=== PATIENT | male | born 1950 | race Caucasian/White ===

== ENCOUNTER 2018-05-18 09:15 | Outpatient (CLI) | payer MEDICARE, SELFPAY ==
[2018-05-18 10:59] LABS: HCT 42.5 % (40.0-50.0); HGB 14.5 g/dL (13.5-17.5); Mean Corp. HGB Concentration 34.1 g/dL (32.0-36.0); Mean Corpuscular Hemoglobin 30.1 pg (27.0-33.0); Mean Corpuscular Volume 88.2 fL (80-95); Mean Platelet Volume 10.3 fL (8.0-11.0); Platelet Count 244 x1000/uL (130-400); RBC 4.82 m/cumm (4.50-6.00); White Blood Cell Count 5.68 k/cumm (4.4-10.8)
[2018-05-18 11:29] LABS: TSH (W/Ref FT4) 3.56 uIU/mL (0.358-3.74)
== END 2018-05-18 09:35 ==
PROVIDERS: PCP Internal Medicine; Visit Provider Internal Medicine
DX: E78.5 Hyperlipidemia, unspecified (principal); R07.9 Chest pain, unspecified; R53.83 Other fatigue
CPT/HCPCS: 36415; 85027; 84443

== ENCOUNTER 2018-11-23 01:15 | Outpatient (CLI) | payer MEDICARE, SELFPAY ==
--- NOTE | 2018-11-23 10:48 | DI.RAD_ITS ---
SYMPTOMS/DIAGNOSIS: PAIN LT SHOULDER, M25.512 LEFT SHOULDER: Multiple views. There are mild hypertrophic changes seen at the acromioclavicular joint. Small spurring is seen at the lateral aspect of the acromion. The glenohumeral joint appears well maintained. The bones are intact and normally mineralized. The soft tissues are unremarkable. IMPRESSION: Degenerative changes about the left shoulder as described above.
[2018-11-23 12:38] LABS: Anion Gap 8.1 mmol/L (3-11); BUN 13 mg/dL (7-18); CO2 29.9 mmol/L (21.0-32.0); CREATININE 0.96 mg/dL (0.70-1.30); Calcium 9.7 mg/dL (8.5-10.1); Chloride 102 mmol/L (98-107); Glucose 106 mg/dL (70-100); Sodium 140 mmol/L (136-145)
[2018-11-24 09:19] LABS: PSA, Screening <0.1 ng/ml (0-6.5)
== END 2018-11-23 01:35 ==
PROVIDERS: PCP Internal Medicine; Visit Provider Internal Medicine
DX: M25.512 Pain in left shoulder (principal); M19.012 Primary osteoarthritis, left shoulder; E87.6 Hypokalemia; I10 Essential (primary) hypertension
CPT/HCPCS: 36415; 80048; 84153; 73030

== ENCOUNTER 2018-12-28 09:49 | Outpatient (CLI) | payer MEDICARE, SELFPAY ==
[2018-12-28 13:23] LABS: Calculated LDL 95; Cholesterol 156 mg/dL (50-200); HDL Cholesterol 32 mg/dL (40-60); Triglyceride 145 mg/dL (30-150)
== END 2018-12-28 10:09 ==
PROVIDERS: PCP Internal Medicine; Visit Provider Internal Medicine
DX: I10 Essential (primary) hypertension (principal)
CPT/HCPCS: 36415; 80061; 83721

== ENCOUNTER → 2019-01-01 13:30 | Outpatient (BNVA) | payer MEDICARE, SELFPAY | PROVIDERS: PCP Internal Medicine; Referring Provider Internal Medicine; Visit Provider Physical Therapy Assistant | DX: R10.33 Periumbilical pain (principal); I10 Essential (primary) hypertension | CPT/HCPCS: 99212; 99213 ==

== ENCOUNTER 2019-01-08 01:51 | Outpatient (CLI) | payer MEDICARE, SELFPAY ==
[2019-01-08] MEDS: Breeza Beverage 473 ML BTL PO ×2 (07:42→07:43)
[2019-01-08] MEDS: Omnipaque 350 MG/ML 50 ML BTL PO (07:43)
[2019-01-08 07:52] LABS: CREATININE 1.13 mg/dL (0.70-1.30)
--- NOTE | 2019-01-08 09:15 | DI.CT_ITS ---
SYMPTOM/DIAGNOSIS: ABDOMINAL PAIN, R/O HERNIA R10.9 CT ABDOMEN AND PELVIS: CT scan of the abdomen and pelvis was performed following the uneventful administration of intravenous and oral contrast material. Comparison is 05/14/16. Dependent atelectatic changes are seen in the lung bases. The liver is normal in size. No suspicious hepatic mass is seen. The portal, superior mesenteric and splenic veins are patent. The patient is status post cholecystectomy. There is no biliary ductal dilatation. The pancreas and peripancreatic soft tissues are unremarkable as are the spleen and adrenal glands. The kidneys show normal enhancement. No evidence of a solid renal mass or obstruction. The urinary bladder is intact. There is atherosclerosis of the abdominal aorta but no aneurysmal dilatation is present. No significant abdominal or pelvic adenopathy, ascites or pneumoperitoneum is present. The bowel shows no evidence of obstruction or inflammation. No findings to suggest acute appendicitis are present. There is a small hiatal hernia. Degenerative changes are present in the spine. No sclerotic foci are identified. Note is made of a small fat containing right inguinal hernia. IMPRESSION: No evidence of an acute or abdominal or pelvic process. 2. Small fat containing right inguinal hernia
[2019-01-08] MEDS: Omnipaque 350 MG/ML 100 ML BTL IJ (09:24)
[2019-01-08] MEDS: Normal Saline Flush 10 ML SYR IVP (09:24)
== END 2019-01-08 02:11 ==
PROVIDERS: PCP Internal Medicine; Visit Provider Physical Therapy Assistant
DX: R10.9 Unspecified abdominal pain (principal); K40.90 Unilateral inguinal hernia, without obstruction or gangrene, not specified as recurrent; Z90.49 Acquired absence of other specified parts of digestive tract; K44.9 Diaphragmatic hernia without obstruction or gangrene
CPT/HCPCS: 74177; 82565; J3490; Q9967

== ENCOUNTER 2019-06-29 08:37 | Outpatient (CLI) | payer MEDICARE, SELFPAY ==
--- NOTE | 2019-06-29 11:11 | DI.RAD_ITS ---
EXAM: XR CHEST 2V PA LATERAL INDICATION: pain R lower lung posterior area. COMPARISON: CHEST 2 VIEWS PA,LAT from 06/21/2013 XR shoulder LT complete 2+V from 11/23/2018 TECHNIQUE: 2D digital imaging was performed. FINDINGS: The heart size and pulmonary vasculature are within normal limits. The lungs are clear. No effusion s or pneumothoraces are identified. Sternal wires are in place. Age-appropriate degenerative change s are seen in the spine. IMPRESSION: No acute pulmonary process.
--- NOTE | 2019-06-29 11:13 | DI.RAD_ITS ---
EXAM: XR ELBOW LT COMPLETE INDICATION: pain, R52. COMPARISON: No previous for comparison. TECHNIQUE: 2D digital imaging was performed. FINDINGS: No acute fracture or dislocation is present. There are mild degenerative changes seen about the elbo w. There is a small enthesophyte at the triceps insertion site. The bones are normally mineralized. The soft tissues are unremarkable. IMPRESSION: No acute abnormality.
[2019-06-30 11:21] LABS: HBs Antibody, Qual Negative (See Note); HBs Antibody, Quant 3.4 mIU/mL (See Note); Hepatitis B Core Antibody Negative (Negative); Hepatitis B surface Ag Negative (Negative); Hepatitis C Ab w Rflx HCV PCR Negative (Negative)
== END 2019-06-29 08:57 ==
PROVIDERS: PCP Internal Medicine; Visit Provider Internal Medicine
DX: M25.522 Pain in left elbow (principal); M19.022 Primary osteoarthritis, left elbow; Z11.59 Encounter for screening for other viral diseases; R09.1 Pleurisy; J98.4 Other disorders of lung
CPT/HCPCS: 36415; 86704; 86706; 86803; 87340; 71046; 73080

== ENCOUNTER 2019-08-24 00:59 | Outpatient (CLI) | payer MEDICARE, SELFPAY ==
--- NOTE | 2019-08-24 10:55 | DI.CT_ITS ---
EXAM: CT HEAD CERVICAL SPINE WO CLINICAL HISTORY: Trauma to head and neck after fall on ice S09.90XA INJURY OF HEAD TECHNIQUE: Noncontrast COMPARISON: No exams were available for comparison FINDINGS: Head CT: No intracranial hemorrhage, mass or infarct is seen. There is no evidence of skull fracture . The ventricles are normal in size. There is no significant atrophy. The sinuses, orbits and mast oid air cells are unremarkable as visualized. There is no significant atrophy or white matter change s. Cervical spine CT: There is no evidence of fracture or subluxation. Degenerative disc changes are se en greatest at C 6-7. There is no prevertebral soft tissue swelling. The airway appears intact. IMPRESSION: No acute abnormality.
== END 2019-08-24 01:19 ==
PROVIDERS: PCP Internal Medicine; Visit Provider Family Medicine
DX: R51 Headache (principal); M54.2 Cervicalgia; S09.90XA Unspecified injury of head, initial encounter; W00.9XXA Unspecified fall due to ice and snow, initial encounter; M50.323 Other cervical disc degeneration at C6-C7 level; S19.9XXA Unspecified injury of neck, initial encounter
CPT/HCPCS: 70450; 72125

== ENCOUNTER 2019-12-30 19:14 | Outpatient (REF) | payer MEDICARE, SELFPAY ==
[2019-12-30 19:59] LABS: HCT 43.1 % (40.0-50.0); HGB 14.5 g/dL (13.5-17.5); Mean Corp. HGB Concentration 33.6 g/dL (32.0-36.0); Mean Platelet Volume 10.6 fL (8.0-11.0); Platelet Count 288 x1000/uL (130-400); RBC 4.84 m/cumm (4.50-6.00); RBC Distribution Width 13.2 % (11.8-14.1); White Blood Cell Count 5.17 k/cumm (4.4-10.8)
[2019-12-30 20:06] LABS: ALT 27 U/L (16-63); AST 15 U/L (15-37); Albumin 3.7 g/dL (3.4-5.0); Alkaline Phosphatase 66 U/L (46-116); BUN 18 mg/dL (7-18); Bilirubin, Total 0.5 mg/dL (0.2-1.0); CREATININE 1.26 mg/dL (0.70-1.30); Calcium 9.5 mg/dL (8.5-10.1); Chloride 103 mmol/L (98-107); Estimated GFR 56.42 (mL/min/1.73m2); FREE T4 0.89 ng/dL (0.76-1.46); Glucose 100 mg/dL (74-106); Potassium 4.3 mmol/L (3.5-5.1); Sodium 137 mmol/L (136-145); TSH 3.51 uIU/mL (0.36-3.74); Total Protein 7.1 g/dL (6.4-8.2)
[2019-12-30 20:43] LABS: Calculated LDL 80 mg/dL (<100); Cholesterol 137 mg/dL (<200); HDL Cholesterol 33 mg/dL (40-60); Triglyceride 120 mg/dL (<150)
== END 2019-12-30 19:34 ==
LOC: NCHCN 19:14
PROVIDERS: PCP Nurse Practitioner Family; Visit Provider Nurse Practitioner Family
DX: R07.9 Chest pain, unspecified (principal); I48.91 Unspecified atrial fibrillation
CPT/HCPCS: 80053; 80061; 85027; 84439; 84443

== ENCOUNTER 2019-12-31 02:49 | Outpatient (CLI) | payer MEDICARE, SELFPAY | END 2019-12-31 03:09 | PROVIDERS: PCP Nurse Practitioner Family; Visit Provider Nurse Practitioner Family | DX: I48.91 Unspecified atrial fibrillation (principal); I47.2 Ventricular tachycardia; I49.3 Ventricular premature depolarization | CPT/HCPCS: 0296T ==

== ENCOUNTER 2020-01-10 11:13 | Outpatient (CLI) | payer MEDICARE, SELFPAY ==
--- NOTE | 2020-01-10 12:30 | DI.US_ITS ---
APPROVED REPORT EXAM: Comprehensive 2D, Doppler, and color-flow Echocardiogram Patient Location: Out-Patient Systems Mechanic: Abril Novoa RDCS (AE) Indications: New onset of A Fib, CAD, CABG Other Information Study Quality: Adequate Conclusion Left Ventricle : The left ventricle is normal size. The left ventricular systolic function is normal. The left ventricular ejection fraction is within the normal range. There is normal left ventricular wall thickness. There is normal LV segmental wall motion. Diastolic function is indeterminate. LVEF i s 47%. Right Ventricle : The right ventricle is normal size. The right ventricular systolic function is low normal. The RVSP is 22.2 mmHg. Atria : Left atrium is mildly dilated. Right atrium is mildly dilated. Valves: There are no hemodynamically significant valvular lesions. Great Vessels : IVC is normal in size and collapses >50% with inspiration. The ascending aorta is mod erately dilated (4.1cm). See remainder of study for further details. There is no prior echocardiogram available for comparison. Wall motion Left Ventricle The left ventricle is normal size. The left ventricular systolic function is normal. The left ventric ular ejection fraction is within the normal range. There is normal left ventricular wall thickness. T here is normal LV segmental wall motion. Diastolic function is indeterminate. There is no ventricular septal defect visualized. LVEF is 47%. Right Ventricle The right ventricle is normal size. The right ventricular systolic function is mildly decreased. The RVSP is 22.2 mmHg. Atria Left atrium is mildly dilated. Right atrium is mildly dilated. The interatrial septum is intact with no evidence for an atrial septal defect. Aortic Valve Aortic valve is likely trileaflet. There is no aortic valvular stenosis. Trace aortic regurgitation. Mitral Valve There is mitral annular calcification. No evidence of mitral valve stenosis. Trace mitral regurgitati on. Tricuspid Valve The tricuspid valve is normal in structure. There is no tricuspid valve stenosis. Trace tricuspid reg urgitation. Pulmonic Valve The pulmonary valve is normal in structure. There is no pulmonic valvular stenosis. Trace pulmonic re gurgitation. Great Vessels The aortic root is normal in size. The ascending aorta is moderately dilated (4.1cm). IVC is normal i n size and collapses >50% with inspiration. Pericardium There is no pericardial effusion. 2D Dimensions IVSD d PLAX 1.09 cm M: 0.6-1.2 LV Vol A2C d MOD 92.9 mL LVPW d PLAX 1.08 cm M: 0.6 - 1.2 LV Vol A4C d MOD 117.5 mL LVID d PLAX 4.76 cm M: 4.2 - 5.8 LA vol/ BSA A2C s A-L 37.9 mL/m2 LVDs 3.35 cm M: 2.5 - 4.0 LA vol/ BSA A4C s A-L 25.0 mL/m2 Ao Root d 3.00 cm M: 3.1 - 3.7 LA Vol/ BSA Biplane s A-L 32.7 mL/m2 RA Area A4C 16.19 cm2 LA Area A4C s MOD 17.15 cm2 RA Vol/ BSA A4C s A-L 24.4 mL/m2 LA Area A2C s MOD 22.42 cm2 Ao Asc Diam d 4.15 cm M: 2.6 - 3.4 LV EF A4C MOD 47.8 % LV EF Teichholz 55.2 % LV EF A2C MOD 44.2 % LVEF (Herrmann's) 47.62 % M: 52 - 72 LV EF Biplane MOD 47.6 % LV Volume 82.07 mL M: 62 - 150 SV 52.45 mL LV Volume Index 40.23 mL/m2 M: 34 - 74 SV Index 25.72 mL/m2 LV Vol Biplane MOD 110.1 mL FS 28.65 % M-Mode TAPSE 1.60 cm (M/F) >1.7 LV Diastology MV E' lateral 0.116 (>0.1 m/s) E/A Ratio 2.6 LV E/e LAT 7.70 (<14) MV E Vmax 0.90 (0.4-1.3 m/s) MV E/E' lateral 7.75 MV A Vmax 0.35 (0.4-1.3 m/s) MV E/A Ratio 2.51 Aortic Valve LVOT Area 2.79 cm2 AoV Area Vmax 2.52 cm2 LVOT Vmax 0.97 m/s AoV Area/ BSA (Vmax) 1.23 cm2/m2 LVOT Mean Han. 0.72 m/s GUNNER Mean Han. 2.30 cm2 LVOT Peak Grad 3.7 mmHg GUNNER Mean Han. Index 1.13 cm2/m2 LVOT Mean Grad 2.2 mmHg AR DT 1871 msec LVOT VTI 0.169 m AR PHT 542 msec LVOT Diam s 1.85 cm AoV Vmax 1.07 m/s Velocity Ratio 0.90 AoV Mean Han. 0.87 m/s AoV Peak Grad 4.6 mmHg LVOT SV 47.09 mL AoV Mean Grad 3.2 mmHg AoV VTI 0.179 m AoV Area VTI 2.63 cm2 AoV Area/ BSA (VTI) 1.29 cm/m2 Mitral Valve MV DT 143 (160-240 msec) MV PHT 42 msec MV Area PHT 5.30 cm2 Pulmonary Valve PV Vmax 1.10 (0.5-1.5 m/s) RVOT Peak Gr. 1.72 mmHg PV Peak Grad 4.8 mmHg RVOT Mean Gr. 1.10 mmHg PV Mean Grad 3.3 mmHg RVOT VTI 0.114 m PV VTI 0.163 m RVOT Vmax 0.66 m/s Tricuspid Valve TR Peak Grad 19.1 mmHg TR Vmax 2.19 m/s RA Pressure 3.00 mmHg RVSP (TR) 22.2 mmHg
== END 2020-01-10 11:33 ==
PROVIDERS: PCP Nurse Practitioner Family; Visit Provider Nurse Practitioner Family
DX: I48.91 Unspecified atrial fibrillation (principal); I25.10 Atherosclerotic heart disease of native coronary artery without angina pectoris; I10 Essential (primary) hypertension; Z95.1 Presence of aortocoronary bypass graft
CPT/HCPCS: 93306

== ENCOUNTER 2020-01-11 01:01 | Outpatient (CLI) | payer MEDICARE, SELFPAY ==
[2020-01-11 10:48] LABS: INR 1.9 (0.9-1.1); Prothrombin Time 18.9 sec (9.3-11.0)
== END 2020-01-11 01:21 ==
PROVIDERS: PCP Nurse Practitioner Family; Visit Provider Nurse Practitioner Family
DX: I48.91 Unspecified atrial fibrillation (principal); Z79.01 Long term (current) use of anticoagulants
CPT/HCPCS: 36415; 85610

== ENCOUNTER 2020-01-14 04:17 | Outpatient (CLI) | payer MEDICARE, SELFPAY ==
[2020-01-14 15:31] LABS: INR 1.9 (0.9-1.1); Prothrombin Time 18.9 sec (9.3-11.0)
== END 2020-01-14 04:37 ==
PROVIDERS: PCP Nurse Practitioner Family; Visit Provider Nurse Practitioner Family
DX: I48.91 Unspecified atrial fibrillation (principal); Z79.01 Long term (current) use of anticoagulants
CPT/HCPCS: 36415; 85610

== ENCOUNTER 2020-01-19 02:33 | Outpatient (CLI) | payer MEDICARE, SELFPAY ==
[2020-01-19 15:15] LABS: INR 1.4 (0.9-1.1); Prothrombin Time 13.9 sec (9.3-11.0)
== END 2020-01-19 02:53 ==
PROVIDERS: PCP Nurse Practitioner Family; Visit Provider Nurse Practitioner Family
DX: I48.91 Unspecified atrial fibrillation (principal); Z79.01 Long term (current) use of anticoagulants
CPT/HCPCS: 36415; 85610

== ENCOUNTER 2020-01-24 08:33 | Outpatient (CLI) | payer MEDICARE, SELFPAY | END 2020-01-24 08:53 | PROVIDERS: PCP Nurse Practitioner Family; Visit Provider Internal Medicine Cardiovascular Disease | DX: I48.91 Unspecified atrial fibrillation (principal); I47.2 Ventricular tachycardia; I49.3 Ventricular premature depolarization | CPT/HCPCS: 0298T ==

== ENCOUNTER 2020-01-26 04:14 | Outpatient (CLI) | payer MEDICARE, SELFPAY ==
[2020-01-26 16:05] LABS: INR 1.4 (0.9-1.1); Prothrombin Time 13.6 sec (9.3-11.0)
== END 2020-01-26 04:34 ==
PROVIDERS: PCP Nurse Practitioner Family; Visit Provider Nurse Practitioner Family
DX: I48.91 Unspecified atrial fibrillation (principal); Z79.01 Long term (current) use of anticoagulants
CPT/HCPCS: 36415; 85610

== ENCOUNTER 2020-02-02 03:04 | Outpatient (CLI) | payer MEDICARE, SELFPAY ==
[2020-02-02 12:57] LABS: INR 1.8 (0.9-1.1); Prothrombin Time 18.3 sec (9.3-11.0)
== END 2020-02-02 03:24 ==
PROVIDERS: PCP Nurse Practitioner Family; Visit Provider Nurse Practitioner Family
DX: I48.91 Unspecified atrial fibrillation (principal); Z79.01 Long term (current) use of anticoagulants
CPT/HCPCS: 36415; 85610

== ENCOUNTER 2020-02-09 01:16 | Outpatient (CLI) | payer MEDICARE, SELFPAY ==
[2020-02-09 15:37] LABS: INR 1.9 (0.9-1.1); Prothrombin Time 18.8 sec (9.3-11.0)
== END 2020-02-09 01:36 ==
PROVIDERS: PCP Nurse Practitioner Family; Visit Provider Nurse Practitioner Family
DX: I48.91 Unspecified atrial fibrillation (principal); Z79.01 Long term (current) use of anticoagulants
CPT/HCPCS: 36415; 85610

== ENCOUNTER 2020-02-16 04:04 | Outpatient (CLI) | payer MEDICARE, SELFPAY ==
[2020-02-16 15:49] LABS: INR 2.3 (0.9-1.1); Prothrombin Time 22.9 sec (9.3-11.0)
[2020-02-16 16:23] LABS: Anion Gap 7.8 mmol/L (3-11); BUN 24 mg/dL (7-18); CO2 27.2 mmol/L (21.0-32.0); CREATININE 1.41 mg/dL (0.70-1.30); Calcium 9.4 mg/dL (8.5-10.1); Chloride 106 mmol/L (98-107); Estimated GFR 49.55 (mL/min/1.73m2); Glucose 90 mg/dL (74-106); Magnesium 1.9 mg/dL (1.8-2.4); Potassium 4.3 mmol/L (3.5-5.1); Sodium 141 mmol/L (136-145)
[2020-02-17 08:50] LABS: PSA, Screening <0.1 ng/mL (0.0-6.5)
== END 2020-02-16 04:24 ==
PROVIDERS: PCP Nurse Practitioner Family; Visit Provider Nurse Practitioner Family
DX: R25.2 Cramp and spasm (principal); Z85.46 Personal history of malignant neoplasm of prostate; I48.91 Unspecified atrial fibrillation
CPT/HCPCS: 36415; 80048; 84153; 83735; 85610

== ENCOUNTER 2020-02-21 02:28 | Outpatient (CLI) | payer MEDICARE, SELFPAY ==
[2020-02-21 14:52] LABS: INR 2.6 (0.9-1.1); Prothrombin Time 25.5 sec (9.3-11.0)
== END 2020-02-21 02:48 ==
PROVIDERS: PCP Nurse Practitioner Family; Visit Provider Nurse Practitioner Family
DX: I48.91 Unspecified atrial fibrillation (principal)
CPT/HCPCS: 36415; 85610

== ENCOUNTER 2020-02-24 03:05 | Outpatient (CLI) | payer MEDICARE, SELFPAY ==
[2020-02-24 17:17] LABS: INR 1.5 (0.9-1.1); Prothrombin Time 14.7 sec (9.3-11.0)
== END 2020-02-24 03:25 ==
PROVIDERS: PCP Nurse Practitioner Family; Visit Provider Nurse Practitioner Family
DX: I48.91 Unspecified atrial fibrillation (principal); Z79.01 Long term (current) use of anticoagulants
CPT/HCPCS: 36415; 85610

== ENCOUNTER 2020-06-02 14:35 | Emergency (ER) | payer MEDICARE, SELFPAY ==
--- NOTE | 2020-06-02 14:44 | W.ED.GENAD ---
Discharge Plan Disposition Patient Disposition: HOME Condition: Stable Discharge Details Clinical Impression: Finger laceration Primary Care Provider: Jacquelyn Reyes ED Provider: Shakira Conde Home Meds and New Rx's Prescriptions: New cephalexin [Keflex] 500 mg capsule 500 mg PO TID 7 Days Qty: 21 RF: 0 Continued atorvastatin 80 mg tablet 80 mg PO DAILY RF: 0 amlodipine 10 mg tablet 10 mg PO DAILY Qty: 90 RF: 3 cholecalciferol (vitamin D3) [Vitamin D3] 125 mcg (5,000 unit) tablet 125 mcg PO DAILY RF: 0 nitroglycerin 0.4 mg tablet, sublingual 0.4 mg Sublingual .COMPLEX MDD 3 tab Qty: 50 RF: 2 isosorbide mononitrate 30 mg tablet extended release 24 hr 30 mg PO DAILY RF: 0 ezetimibe [Zetia] 10 mg tablet 10 mg PO DAILY RF: 0 omeprazole 40 mg capsule,delayed release(DR/EC) 40 mg PO DAILY Qty: 90 RF: 3 losartan 100 mg tablet 100 mg PO DAILY RF: 0 metoprolol succinate 25 mg tablet extended release 24 hr 25 mg PO DAILY Qty: 90 RF: 4 apixaban 5 mg tablet 5 mg PO BID Qty: 180 RF: 4 cyclobenzaprine 5 mg tablet 5 mg PO TID PRN (Reason: pain) Qty: 90 RF: 2 aspirin 81 MG tablet,chewable 81 mg PO DAILY RF: 0 Discharge Instructions Instructions: Finger Laceration (ED) Additional Instructions: Keep wound clean and dry. Cover wound with bandage if risk of contamination. Otherwise you can keep the wound open to air if resting at home to allow edges to dry and heal. Take the antibiotics until finished. Return to the emergency department in 7 days for suture removal. Return immediately to the emergency department if you develop any worsening or new concerning symptoms. Discharge Data Discharge Date/Time-TO BE ENTERED AT DEPARTURE: 06/02/20 15:46 Discharge Physician: Shakira Conde Medical Decision Making 69-year-old male presents with right fifth finger laceration sustained on a sharp edge of sheet metal just prior to arrival. Denies any foreign bodies or bony pain. Last tetanus 2012. He states the sheet-metal may have been slightly contaminated. He has a 1 cm straight laceration noted on the middle phalange E of volar aspect of right fifth finger. No bony deformity or foreign bodies noted. He is neurovascular intact. Finger was irrigated well and finger tourniquet placed and wound explored without any evidence of bony injury or contamination. 5 nylon 5-0 sutures placed. Due to slight contamination of sheet-metal, will cover with antibiotics. Advised return to the ED in 10 days for suture removal. Usual and customary return precautions given prior to discharge. Medical Records Medical records reviewed: Yes I reviewed the patient's medical records. HPI General Mode of arrival: ambulatory. Date/Time Provider Initiated Documentation: 06/02/20 14:44. Limitations to Documentation: no limitations. Information obtained by: patient. HPI Narrative: Patient is a 69-year-old male with a right fifth finger laceration sustained from sheet metal while working at home. Patient states he was picking up a piece of sheet metal when it sliced the palmar aspect of his right fifth finger. States he is unsure of his last tetanus. He denies any known foreign bodies or bony injury. Related Data Home Medications Medication Instructions Recorded Confirmed aspirin 81 mg PO DAILY 06/21/13 06/02/20 nitroglycerin 0.4 mg sublingual 0.4 mg SUBLINGUAL .COMPLEX #50 09/25/18 06/02/20 tablet tab-cap MDD 3 tab isosorbide mononitrate 30 mg 30 mg PO DAILY 10/21/18 06/02/20 tablet,extended release 24 hr atorvastatin 80 mg tablet 80 mg PO DAILY 11/16/18 06/02/20 amlodipine 10 mg tablet 10 mg PO DAILY #90 tab 06/28/19 06/02/20 cholecalciferol (vitamin D3) 125 125 mcg PO DAILY 12/30/19 06/02/20 mcg (5,000 unit) tablet ezetimibe 10 mg tablet 10 mg PO DAILY 12/31/19 06/02/20 losartan 100 mg tablet 100 mg PO DAILY 12/31/19 06/02/20 omeprazole 40 mg capsule,delayed 40 mg PO DAILY #90 cap 12/31/19 06/02/20 release metoprolol succinate 25 mg 25 mg PO DAILY #90 tab 01/27/20 06/02/20 tablet,extended release 24 hr apixaban 5 mg tablet 5 mg PO BID #180 tab 02/25/20 06/02/20 cyclobenzaprine 5 mg tablet 5 mg PO TID PRN #90 tab 03/05/20 06/02/20 cephalexin [Keflex] 500 mg PO TID 7 Days #21 cap 06/02/20 Previous Rx's Medication Instructions Recorded nitroglycerin 0.4 mg sublingual 0.4 mg SUBLINGUAL .COMPLEX #50 09/25/18 tablet tab-cap MDD 3 tab amlodipine 10 mg tablet 10 mg PO DAILY #90 tab 06/28/19 omeprazole 40 mg capsule,delayed 40 mg PO DAILY #90 cap 12/31/19 release metoprolol succinate 25 mg 25 mg PO DAILY #90 tab 01/27/20 tablet,extended release 24 hr apixaban 5 mg tablet 5 mg PO BID #180 tab 02/25/20 cyclobenzaprine 5 mg tablet 5 mg PO TID PRN #90 tab 03/05/20 cephalexin [Keflex] 500 mg PO TID 7 Days #21 cap 06/02/20 Allergies Allergy/AdvReac Type Severity Reaction Status Date / Time No Known Allergies Allergy Verified 06/02/20 15:29 Review of Systems All systems reviewed & are unremarkable except as noted in HPI and below Constitutional Constitutional: Reports as per HPI, Denies chills and Denies fever(s) Eyes Eyes: Denies blurry vision ENT Ears, Nose, Mouth, and Throat: Denies dizziness, Denies sore throat and Denies throat swelling Cardiovascular Cardiovascular: Denies chest pain and Denies dyspnea Respiratory Respiratory: Denies cough and Denies dyspnea Gastrointestinal Gastrointestinal: Denies abdominal pain, Denies diarrhea and Denies vomiting Genitourinary Genitourinary: Denies hematuria and Denies dysuria Musculoskeletal Musculoskeletal: Denies back pain and Denies numbness Integumentary/Breasts Skin/Breast: Denies lesions and Denies rash Neurologic Neurologic: Denies dizziness, Denies localized weakness and Denies numbness Allergic/Immunologic Allergic/Immunologic: Denies throat swelling [facility] Medical History (Updated 06/02/20 @ 15:30 by Shakira Conde DO) Adenocarcinoma of prostate (~2015) [place] score 6, s/p radical prostatectomy 2017 Atrial fibrillation Chronic anticoagulation Coronary artery disease Essential hypertension Hyperlipidemia Lumbar back pain with radiculopathy affecting lower extremity Surgical History H/O umbilical hernia repair History of esophagogastroduodenoscopy (EGD) (04/04/14) 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 Maternal Grandmother No problems noted. Paternal Grandfather No problems noted. Paternal Grandmother No problems noted. Social History Smoking/Tobacco Use Status: Never Smoking risk assessment performed?: Yes Alcohol Intake: current Alcohol Intake frequency: a few times a week Alcohol type: beer Drug use: Never Substance use type: does not use Caregiver/Support person: No Household members: spouse and children Housing: house Communication Needs: None Do you need help understanding health information?: Never Pets and animals: Yes Pets and animals: dog(s) Sexually active: No Do you think of yourself as: straight/heterosexual Current gender identity: male What is your relationship status?: How often do you talk on the phone with friends or family?: decline to answer How often do you get together with friends or relatives?: decline to answer How often do you attend anabaptism or evangelical services?: decline to answer Do you belong to any clubs or organized social groups?: decline to answer Panel score (0-1 are the most socially isolated patients): 1 What type of physical activity do you participate in: walking Duration: 45-60 minutes/day Frequency: daily Sydney/Yarsani: None Special sydney needs: No Seatbelt use: always Drive intox 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 inventory associate and driver: No Do you feel safe at home: Yes Do you feel safe in your relationship?: Yes Exam Const General: cooperative, healthy appearing and no acute distress HENMT Head: normal to inspection Mouth: oral mucosae normal Eyes General: appearance normal, both eyes and all related structures Neck Neck: normal visual inspection Resp Effort & Inspection: normal respiratory effort and able to speak in complete sentences Cardio Rate: regular rate Skin General skin exam: no rashes or lesions noted Neuro General: patient alert, patient awake, patient oriented x3, moves all extremities and no focal motor deficits Motor: muscle tone normal throughout Sensory Exam: no sensory deficits noted Extrem Hand/finger images: 1. 1 cm straight laceration noted on volar aspect of middle phalanges of left fifth finger. There is active oozing but no pulsatile bleeding. No obvious foreign body or bony injury noted. Psych Appearance: grossly normal Affect: normal affect Procedures Laceration Laceration 1: Site: hand Side (If applicable): right Size (cm): 1 Description: linear Depth: simple, single layer Local Anesthetic: Lidocaine 1% Amount of anesthesia used (mL): 5 Pre-repair: wound explored, irrigated extensively and deep structures intact Skin layer closed with: nylon Size (cm): 5-0 Number of sutures: 5 Technique: simple, interrupted
[2020-06-02 14:46] VITALS: PULSE 87; RESP 18; O2SAT 98
[2020-06-02 15:32] VITALS: BP 116/86; PULSE 78; RESP 18; O2SAT 96
[2020-06-02] MEDS: Cephalexin 500 MG CAP PO (15:36)
== END 2020-06-02 15:46 | disposition home or self-care (01) ==
PROVIDERS: Emergency Provider Physician Assistant; PCP Nurse Practitioner Family
DX: S61.216A Laceration without foreign body of right little finger without damage to nail, initial encounter (principal); W26.8XXA Contact with other sharp object(s), not elsewhere classified, initial encounter; Z79.01 Long term (current) use of anticoagulants
CPT/HCPCS: 12001

== ENCOUNTER 2020-06-09 10:48 | Emergency (ER) | payer MEDICARE, SELFPAY ==
[2020-06-09 10:56] VITALS: BP 119/68; PULSE 75; RESP 18; TEMP 36.5; O2SAT 96
--- NOTE | 2020-06-09 10:59 | ED.GENADUL_ITS ---
Discharge Plan Disposition Patient Disposition: HOME Condition: Stable Discharge Details Clinical Impression: Encounter for removal of sutures Primary Care Provider: Jacquelyn Reyes ED Provider: Kerry Callaway Home Meds and New Rx's Prescriptions: Continued atorvastatin 80 mg tablet 80 mg PO DAILY RF: 0 amlodipine 10 mg tablet 10 mg PO DAILY Qty: 90 RF: 3 cholecalciferol (vitamin D3) [Vitamin D3] 125 mcg (5,000 unit) tablet 125 mcg PO DAILY RF: 0 nitroglycerin 0.4 mg tablet, sublingual 0.4 mg Sublingual .COMPLEX MDD 3 tab Qty: 50 RF: 2 isosorbide mononitrate 30 mg tablet extended release 24 hr 30 mg PO DAILY RF: 0 ezetimibe [Zetia] 10 mg tablet 10 mg PO DAILY RF: 0 omeprazole 40 mg capsule,delayed release(DR/EC) 40 mg PO DAILY Qty: 90 RF: 3 losartan 100 mg tablet 100 mg PO DAILY RF: 0 metoprolol succinate 25 mg tablet extended release 24 hr 25 mg PO DAILY Qty: 90 RF: 4 apixaban 5 mg tablet 5 mg PO BID Qty: 180 RF: 4 cyclobenzaprine 5 mg tablet 5 mg PO TID PRN (Reason: pain) Qty: 90 RF: 2 aspirin 81 MG tablet,chewable 81 mg PO DAILY RF: 0 Discharge Instructions Instructions: Stitches Removal (ED) Additional Instructions: Follow up with primary care provider in 3-5 days. Return to ED sooner if any worsening or concerns. Increase oral fluids. Referrals: Jacquelyn Reyes NP [Primary Care Provider] - Discharge Data Discharge Date/Time-TO BE ENTERED AT DEPARTURE: 06/09/20 11:08 Medical Decision Making 5 simple interrupted sutures removed by staff nurse icu resource team patient discharged with home care instructions, verbalized understanding. HPI General Mode of arrival: ambulatory . Date/Time Provider Initiated Documentation: 06/09/20 10:51 . Limitations to Documentation: no limitations . Information obtained by: patient . HPI Narrative: Patient here request to have sutures removed, 5 sutures were placed to his right pinky finger 7 days ago. He denies any problems at home no swelling no redness no drainage. He has been taking cephalexin as prescribed to treat empirically for infection. Wound is well approximated, no surrounding erythema or swelling no signs of infection or dehiscence. Will DC sutures. Related Data Home Medications Medication Instructions Recorded Confirmed aspirin 81 mg PO DAILY 06/21/13 06/09/20 nitroglycerin 0.4 mg sublingual 0.4 mg SUBLINGUAL .COMPLEX #50 09/25/18 06/09/20 tablet tab-cap MDD 3 tab isosorbide mononitrate 30 mg 30 mg PO DAILY 10/21/18 06/09/20 tablet,extended release 24 hr atorvastatin 80 mg tablet 80 mg PO DAILY 11/16/18 06/09/20 amlodipine 10 mg tablet 10 mg PO DAILY #90 tab 06/28/19 06/09/20 cholecalciferol (vitamin D3) 125 125 mcg PO DAILY 12/30/19 06/09/20 mcg (5,000 unit) tablet ezetimibe 10 mg tablet 10 mg PO DAILY 12/31/19 06/09/20 losartan 100 mg tablet 100 mg PO DAILY 12/31/19 06/09/20 omeprazole 40 mg capsule,delayed 40 mg PO DAILY #90 cap 12/31/19 06/09/20 release metoprolol succinate 25 mg 25 mg PO DAILY #90 tab 01/27/20 06/09/20 tablet,extended release 24 hr apixaban 5 mg tablet 5 mg PO BID #180 tab 02/25/20 06/09/20 cyclobenzaprine 5 mg tablet 5 mg PO TID PRN #90 tab 03/05/20 06/09/20 Previous Rx's Medication Instructions Recorded nitroglycerin 0.4 mg sublingual 0.4 mg SUBLINGUAL .COMPLEX #50 09/25/18 tablet tab-cap MDD 3 tab amlodipine 10 mg tablet 10 mg PO DAILY #90 tab 06/28/19 omeprazole 40 mg capsule,delayed 40 mg PO DAILY #90 cap 12/31/19 release metoprolol succinate 25 mg 25 mg PO DAILY #90 tab 01/27/20 tablet,extended release 24 hr apixaban 5 mg tablet 5 mg PO BID #180 tab 02/25/20 cyclobenzaprine 5 mg tablet 5 mg PO TID PRN #90 tab 03/05/20 Allergies Allergy/AdvReac Type Severity Reaction Status Date / Time No Known Allergies Allergy Verified 06/09/20 11:02 General [place]: 3 Review of Systems All systems reviewed & are unremarkable except as noted in HPI and below Integumentary/Breasts Skin/Breast: Reports as per HPI and Reports wounds PFS Medical History (Updated 06/09/20 @ 11:03 by Kerry Callaway) Adenocarcinoma of prostate (~2015) [place] score 6, s/p radical prostatectomy 2017 Atrial fibrillation Chronic anticoagulation Coronary artery disease Essential hypertension Hyperlipidemia Lumbar back pain with radiculopathy affecting lower extremity Surgical History H/O umbilical hernia repair History of esophagogastroduodenoscopy (EGD) (04/04/14) 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 Maternal Grandmother No problems noted. Paternal Grandfather No problems noted. Paternal Grandmother No problems noted. Social History Smoking/Tobacco Use Status: Never Smoking risk assessment performed?: Yes Alcohol Intake: current Alcohol Intake frequency: a few times a week Alcohol type: beer Drug use: Never Substance use type: does not use Caregiver/Support person: No Household members: spouse and children Housing: house Communication Needs: None Do you need help understanding health information?: Never Pets and animals: Yes Pets and animals: dog(s) Sexually active: No Do you think of yourself as: straight/heterosexual Current gender identity: male What is your relationship status?: How often do you talk on the phone with friends or family?: decline to answer How often do you get together with friends or relatives?: decline to answer How often do you attend congregation or tenriism services?: decline to answer Do you belong to any clubs or organized social groups?: decline to answer Panel score (0-1 are the most socially isolated patients): 1 What type of physical activity do you participate in: walking Duration: 45-60 minutes/day Frequency: daily Sydney/Zoroastrian: None Special sydney needs: No Seatbelt use: always Drive intox 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 local 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
== END 2020-06-09 11:08 | disposition home or self-care (01) ==
PROVIDERS: Emergency Provider Registered Nurse Emergency; PCP Nurse Practitioner Family
DX: S61.216D Laceration without foreign body of right little finger without damage to nail, subsequent encounter (principal); W26.8XXD Contact with other sharp object(s), not elsewhere classified, subsequent encounter; Z48.02 Encounter for removal of sutures

== ENCOUNTER → 2020-07-25 01:03 | Outpatient (CLI) | payer MEDICARE, SELFPAY ==
--- NOTE | 2020-07-25 07:15 | DI.US_ITS ---
EXAM: US HERNIA CLINICAL HISTORY: Abd pain just above abdomen, hernia?,R10.33,PERIUMBILICAL PAIN. TECHNIQUE: Ultrasound was performed using standard protocol. COMPARISON: CT CT ABDOMEN PELVIS W from 01/08/[address] ABDOMEN PELVIS W from 01/08/2019 FINDINGS: Sonographic assessment utilizing grayscale and color Doppler imaging was performed and targeted to th e area of clinical concern. There is no evidence of a hernia. There is a 13 millimeter homogeneous hypoechoic lesion questioned deep to the abdominal wall, within the fat. IMPRESSION: No evidence a supraumbilical hernia. Question of a fatty lesion deep to the abdominal wall in the ar ea of the patient's pain. A CT could be considered for further evaluation. DATA REPOSITORY:
== END ==
PROVIDERS: PCP Nurse Practitioner Family; Visit Provider Nurse Practitioner Family
DX: R10.33 Periumbilical pain (principal)
CPT/HCPCS: 76857

== ENCOUNTER → 2020-08-14 00:52 | Outpatient (CLI) | payer MEDICARE, SELFPAY ==
--- NOTE | 2020-08-14 07:15 | DI.RAD_ITS ---
EXAM: XR HIP RT COMPLETE AP PELVIS INDICATION: right hip pain since fall,M25.551,W19.XXXA. COMPARISON: No exams were available for comparison TECHNIQUE: 2D digital imaging was performed. FINDINGS: In the right superior acetabular there is mild sclerosis and subchondral cyst formation. The right h ip is otherwise well maintained. Similar changes are seen in the left hip. The sacroiliac joints an d symphysis pubis are well maintained. The bones are intact and normally mineralized. The soft tiss ues are unremarkable. IMPRESSION: Mild degenerative changes of the right hip. DATA REPOSITORY: RADIATION DOSE DELIVERED:
== END ==
PROVIDERS: PCP Nurse Practitioner Family; Visit Provider Nurse Practitioner Family
DX: M16.11 Unilateral primary osteoarthritis, right hip (principal)
CPT/HCPCS: 73502

== ENCOUNTER → 2021-01-09 00:44 | Outpatient (CLI) | payer MEDICARE, SELFPAY ==
--- NOTE | 2021-01-09 14:07 | DI.US_ITS ---
APPROVED REPORT EXAM: Comprehensive 2D, Doppler, and color-flow Echocardiogram Patient Location: Out-Patient Burner Shaft: Abril Novoa RDCS (AE) Indications: A Fib, Reduced LVEF, HTN Other Information Study Quality: Adequate Conclusion Normal left ventricular wall thickness and chamber size. Estimated ejection fraction is 50 to 55%. There is mild global hypokinesis Normal right ventricular size and systolic function Both atria are mildly dilated The aortic valve is trileaflet and mildly sclerotic with mild regurgitation Mild mitral annular calcification. Mild mitral regurgitation Normal tricuspid valve with trace to mild regurgitation Normal pulmonic valve with trace physiologic regurgitation Dilated ascending aorta measuring 4.11 cm Wall motion Left Ventricle The left ventricle is normal size. Left ventricular systolic function is mildly decreased. There is n ormal left ventricular wall thickness. There is mild global hypokinesis of the left ventricle. There is no ventricular septal defect visualized. LVEF is 50-55%. Right Ventricle Right ventricle is grossly normal in size. Right ventricular systolic function is grossly normal. The RVSP is 23.2mmHg. Atria Left atrium is mildly dilated. Right atrium is mildly dilated. Aortic Valve Valve is mildly thickened Aortic valve is trileaflet. There is no aortic valvular stenosis. Mild aort ic regurgitation. Mitral Valve Mild mitral annular calcification. No evidence of mitral valve stenosis. Mild mitral regurgitation. Tricuspid Valve The tricuspid valve is normal in structure. There is no tricuspid valve stenosis. Trace to mild tricu spid regurgitation. Pulmonic Valve The pulmonary valve is normal in structure. There is no pulmonic valvular stenosis. Trace pulmonic re gurgitation. Great Vessels The aortic root is normal in size. The ascending aorta is moderately dilated.4.11 cm IVC is normal in size and collapses >50% with inspiration. Pericardium There is no pericardial effusion. 2D Dimensions IVSD d PLAX 1.09 cm M: 0.6-1.2 LV Vol A2C d MOD 84.1 mL LVPW d PLAX 1.09 cm M: 0.6 - 1.2 LV Vol A4C d MOD 116.4 mL LVID d PLAX 5.18 cm M: 4.2 - 5.8 LA vol/ BSA A2C s A-L 45.5 mL/m2 LVDs 3.85 cm M: 2.5 - 4.0 LA vol/ BSA A4C s A-L 39.8 mL/m2 Ao Root d 3.00 cm M: 3.1 - 3.7 LA Vol/ BSA Biplane s A-L 43.0 mL/m2 RA Area A4C 13.62 cm2 LA Area A4C s MOD 24.09 cm2 RA Vol/ BSA A4C s A-L 16.3 mL/m2 LA Area A2C s MOD 25.47 cm2 Ao Asc Diam d 4.11 cm M: 2.6 - 3.4 LV EF A4C MOD 46.7 % LV EF Teichholz 48.9 % LV EF A2C MOD 47.0 % LVEF (Herrmann's) 46.56 % M: 52 - 72 LV EF Biplane MOD 46.6 % LV Volume 77.00 mL M: 62 - 150 SV 48.18 mL LV Volume Index 37.74 mL/m2 M: 34 - 74 SV Index 23.53 mL/m2 LV Vol Biplane MOD 103.5 mL FS 24.85 % M-Mode TAPSE 1.15 cm (M/F) >1.7 LV Diastology MV E' medial 0.081 (>0.07 m/s) MV E Vmax 0.73 (0.4-1.3 m/s) LV E/e MED 8.90 (<14) MV E' lateral 0.137 (>0.1 m/s) LV E/e LAT 5.30 (<14) MV E/E' medial 8.93 MV E/E' lateral 5.31 Aortic Valve LVOT Area 3.20 cm2 AoV Area Vmax 2.70 cm2 LVOT Vmax 0.89 m/s AoV Area/ BSA (Vmax) 1.32 cm2/m2 LVOT Mean Han. 0.58 m/s GUNNER Mean Han. 2.35 cm2 LVOT Peak Grad 3.2 mmHg GUNNER Mean Han. Index 1.15 cm2/m2 LVOT Mean Grad 1.6 mmHg AR DT 2258 msec LVOT VTI 0.181 m AR PHT 655 msec LVOT Diam s 2.00 cm AoV Vmax 1.06 m/s Velocity Ratio 0.83 AoV Mean Han. 0.79 m/s AoV Peak Grad 4.5 mmHg LVOT SV 57.88 mL AoV Mean Grad 2.7 mmHg AoV VTI 0.188 m AoV Area VTI 3.07 cm2 AoV Area/ BSA (VTI) 1.50 cm/m2 Mitral Valve MV DT 170 (160-240 msec) MV PHT 49 msec MV Area PHT 4.48 cm2 MV VTI 0.146 m MV Area VTI 3.95 (4.0-6.0 cm2) Pulmonary Valve PV Vmax 1.09 (0.5-1.5 m/s) RVOT Peak Gr. 2.51 mmHg PV Peak Grad 4.8 mmHg RVOT Mean Gr. 1.10 mmHg PV Mean Grad 2.0 mmHg RVOT VTI 0.125 m PV VTI 0.166 m RVOT Vmax 0.79 m/s Tricuspid Valve TR Peak Grad 20.2 mmHg TR Vmax 2.25 m/s RA Pressure 3.00 mmHg RVSP (TR) 23.2 mmHg
== END ==
PROVIDERS: PCP Nurse Practitioner Family; Visit Provider Nurse Practitioner Family
DX: I10 Essential (primary) hypertension (principal); I77.810 Thoracic aortic ectasia
CPT/HCPCS: 93306

== ENCOUNTER 2021-08-30 10:09 | Emergency (ER) | payer MEDICARE, SELFPAY ==
[2021-08-30 10:13] VITALS: BP 142/68; PULSE 51; RESP 14; TEMP 37.2; O2SAT 96
--- NOTE | 2021-08-30 10:15 | DI.CT_ITS ---
Exam(s) CT HEAD CERVICAL SPINE WO EXAM: CT HEAD CERVICAL SPINE WO COMPARISON: CT CT HEAD CERVICAL SPINE WO from 08/24/2019 FINDINGS: CT examination of the cervical spine was performed without contrast administration. There are moderate degenerative changes of the cervical spine. There is no evidence of acute cervical spine fracture or dislocation. Intervertebral disc spaces are well maintained. Tracheolaryngeal structures appear intact. No cervical mass or adenopathy. Noncontrast cranial CT was performed. There is moderate generalized cerebral atrophy. No evidence of acute intracranial hemorrhage, mass effect, or midline shift. No calvarial fracture. The orbital and temporal bone structures appear intact. Visualized mastoid air cells and paranasal sinuses appear clear. IMPRESSION: No evidence of acute cervical spine injury. No evidence of acute intracranial injury. RADIATION DOSE DELIVERED: 1,679.76mGy.cm Total DLP 1,679.76mGy.cm Total DLP CTDIvol DATA REPOSITORY: All CT scans at this facility are submitted to the National Radiology Data Registry (NRDR) Dose Index Registry (DIR) with the [employer] (ACR). RADIATION OPTIMIZATION: All CT scans at this facility use at least one of these dose optimization te chniques: automated exposure control; mA and/or kV adjustment per patient size (includes targeted exa ms where dose is matched to clinical indication); or iterative reconstruction.
--- NOTE | 2021-08-30 10:35 | ED.GENADUL_ITS ---
Discharge Plan Disposition Patient Disposition: HOME Condition: Stable Discharge Details Clinical Impression: Closed head injury with concussion, Cervical muscle strain Primary Care Provider: Jacquelyn Reyes ED Provider: Kerry Callaway Home Meds and New Rx's Prescriptions: New cyclobenzaprine 10 mg tablet 10 mg PO TID PRN (Reason: muscle spasm) Qty: 10 RF: 0 No Action cholecalciferol (vitamin D3) [Vitamin D3] 125 mcg (5,000 unit) tablet 125 mcg PO DAILY RF: 0 apixaban 5 mg tablet 5 mg PO BID Qty: 180 RF: 4 nitroglycerin 0.4 mg tablet, sublingual 0.4 mg Sublingual .COMPLEX MDD 3 tab Qty: 50 RF: 2 amlodipine 10 mg tablet 10 mg PO DAILY Qty: 90 RF: 4 atorvastatin 80 mg tablet 80 mg PO DAILY Qty: 90 RF: 4 ezetimibe [Zetia] 10 mg tablet 10 mg PO DAILY Qty: 90 RF: 4 ibuprofen 800 mg tablet 800 mg PO PRN Qty: 30 RF: 0 omeprazole 40 mg capsule,delayed release(DR/EC) 40 mg PO DAILY Qty: 90 RF: 3 isosorbide mononitrate 30 mg tablet extended release 24 hr 30 mg PO DAILY Qty: 90 RF: 4 losartan 100 mg tablet 100 mg PO DAILY Qty: 90 RF: 4 aspirin 81 MG tablet,chewable 81 mg PO DAILY RF: 0 Discharge Instructions Instructions: Cervical Strain (ED), Head Injury (ED) Additional Instructions: At this time the head CT and neck CT is negative for fracture or bleed. Please continue to monitor your symptoms over the next couple of days. Please return for any worsening headache, confusion, weakness, vomiting. You may have mild headache nausea trouble concentrating for the next week to a couple weeks. Take Tylenol and the Flexeril as needed for pain and muscle spasm. Alternate ice and heat. Follow up with primary care provider in 3-5 days. Return to ED sooner if any worsening or concerns. Increase oral fluids. Referrals: Jacquelyn Reyes, TECHNICAL TRAINING INSTRUCTOR [Primary Care Provider] - 5 days Medical Decision Making 70-year-old male presents to the ER with chief complaint of closed head injury status post mechanical fall prior to arrival. Patient reports that he was out walking to the barn slipped and fell back onto an edge of some concrete. He does have a small hematoma and abrasion noted to the occipital scalp. He denies any loss of consciousness however he does report feeling foggy does have some neck pain which radiates down to between the shoulder blades. He also reports some nausea. He is on Eliquis for atrial fibrillation. He called his PCP who instructed him to be evaluated here in the ER. Other past medical history include hyperlipidemia, GERD, prostate cancer, coronary artery disease and sleep apnea. At this time patient is ANO x4, speaking in full sentences able to recall entire incident. He is complaining of mild nausea, posterior headache and pain with behind his eyes. Due to patient being on anticoagulation will order head CT and C-spine. CT Head and C-spine WO: FINDINGS: CT examination of the cervical spine was performed without contrast administration. There are moderate degenerative changes of the cervical spine. There is no evidence of acute cervical spine fracture or dislocation. Intervertebral disc spaces are well maintained. Tracheolaryngeal structures appear intact. No cervical mass or adenopathy. Noncontrast cranial CT was performed. There is moderate generalized cerebral atrophy. No evidence of acute intracranial hemorrhage, mass effect, or midline shift. No calvarial fracture. The orbital and temporal bone structures appear intact. Visualized mastoid air cells and paranasal sinuses appear clear. IMPRESSION: No evidence of acute cervical spine injury. No evidence of acute intracranial injury. Discussed CT results with patient who verbalized understanding. Patient was given Tylenol and Flexeril which improved his symptoms. Discussed home care and strict return instructions, verbalized understanding. Patient was neurologically intact and hemodynamically stable prior to discharge. This text was generated using [employer] dictation system, please disregard any oddities of phrase or misspellings. HPI General Mode of arrival: ambulatory . Date/Time Provider Initiated Documentation: 08/30/21 10:10 . Limitations to Documentation: no limitations . Information obtained by: patient, RN notes reviewed and old records reviewed . HPI Narrative: 70-year-old male presents to the ER with chief complaint of closed head injury status post mechanical fall prior to arrival. Patient reports that he was out walking to the barn slipped and fell back onto an edge of some concrete. He does have a small hematoma and abrasion noted to the occipital scalp. He denies any loss of consciousness however he does report feeling foggy does have some neck pain which radiates down to between the shoulder blades. He also reports some nausea. He is on Eliquis for atrial fibrillation. He called his PCP who instructed him to be evaluated here in the ER. Other past medical history include hyperlipidemia, GERD, prostate cancer, coronary artery disease and sleep apnea. Related Data Home Medications Medication Instructions Recorded Confirmed aspirin 81 mg PO DAILY 06/21/13 08/30/21 cholecalciferol (vitamin D3) 125 125 mcg PO DAILY 12/30/19 08/30/21 mcg (5,000 unit) tablet apixaban 5 mg tablet 5 mg PO BID #180 tab 02/25/20 08/30/21 nitroglycerin 0.4 mg sublingual 0.4 mg SUBLINGUAL .COMPLEX #50 06/20/20 08/30/21 tablet tab-cap MDD 3 tab amlodipine 10 mg tablet 10 mg PO DAILY #90 tab 07/07/20 08/30/21 atorvastatin 80 mg tablet 80 mg PO DAILY #90 tab 10/11/20 08/30/21 ezetimibe 10 mg tablet 10 mg PO DAILY #90 tab 01/01/21 08/30/21 ibuprofen 800 mg tablet 800 mg PO PRN #30 tab 01/31/21 08/30/21 omeprazole 40 mg capsule,delayed 40 mg PO DAILY #90 cap 02/09/21 08/30/21 release isosorbide mononitrate 30 mg 30 mg PO DAILY #90 tab 08/13/21 08/30/21 tablet,extended release 24 hr losartan 100 mg tablet 100 mg PO DAILY #90 tab 08/13/21 08/30/21 cyclobenzaprine 10 mg PO TID PRN #10 tab 08/30/21 Previous Rx's Medication Instructions Recorded apixaban 5 mg tablet 5 mg PO BID #180 tab 02/25/20 nitroglycerin 0.4 mg sublingual 0.4 mg SUBLINGUAL .COMPLEX #50 06/20/20 tablet tab-cap MDD 3 tab amlodipine 10 mg tablet 10 mg PO DAILY #90 tab 07/07/20 atorvastatin 80 mg tablet 80 mg PO DAILY #90 tab 10/11/20 ezetimibe 10 mg tablet 10 mg PO DAILY #90 tab 01/01/21 ibuprofen 800 mg tablet 800 mg PO PRN #30 tab 01/31/21 omeprazole 40 mg capsule,delayed 40 mg PO DAILY #90 cap 02/09/21 release isosorbide mononitrate 30 mg 30 mg PO DAILY #90 tab 08/13/21 tablet,extended release 24 hr losartan 100 mg tablet 100 mg PO DAILY #90 tab 08/13/21 cyclobenzaprine 10 mg PO TID PRN #10 tab 08/30/21 Allergies Allergy/AdvReac Type Severity Reaction Status Date / Time metoprolol AdvReac Severe Bradycardia Verified 08/30/21 10:25 General Stated Complaint: HeadInjury BR[place]FORD: 2 Review of Systems All systems reviewed & are unremarkable except as noted in HPI and below Constitutional Constitutional: Reports headache(s) and Denies weakness ENT Ears, Nose, Mouth, and Throat: Denies dizziness, Reports headache(s) and Reports neck pain Cardiovascular Cardiovascular: Denies syncope Musculoskeletal Musculoskeletal: Reports as per HPI, Reports neck pain, Denies numbness, Reports stiffness and Denies tingling Neurologic Neurologic: Denies abnormal speech, Denies confusion, Denies dizziness, Denies syncope, Reports headache(s), Denies numbness, Denies tingling and Denies weakness Psychiatric Psychiatric: Denies confusion PFSH All Active Problems (Updated 08/30/21 @ 11:14 by Kerry Callaway) Closed head injury with concussion (Acute) Cervical muscle strain (Acute) Coronary artery disease (Chronic) Obstructive sleep apnea (Chronic) PSG 08/2020, on CPAP Atrial fibrillation (Chronic) S/p cardioversion 03/07/21 Chronic anticoagulation (Chronic) History of prostate cancer (Chronic ~2015) Brian score 6, s/p radical prostatectomy 2016 Essential hypertension (Chronic) Hyperlipidemia (Chronic) Lumbar back pain with radiculopathy affecting lower extremity (Chronic) Gastroesophageal reflux disease with esophagitis (Chronic) EGD 2013 Medical History Adenocarcinoma of prostate (~2015) Brian score 6, s/p radical prostatectomy 2016 Surgical History H/O umbilical hernia repair History of esophagogastroduodenoscopy (EGD) (04/04/14) 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 Maternal Grandmother No problems noted. Paternal Grandfather No problems noted. Paternal Grandmother No problems noted. Social History Smoking/Tobacco Use Status: Never Smoking risk assessment performed?: Yes Alcohol Intake: current Alcohol Intake frequency: a few times a week Alcohol type: beer Drug use: Never Substance use type: does not use Caregiver/Support person: No Household members: spouse and children Housing: house Communication Needs: None Do you need help understanding health information?: Never Pets and animals: Yes Pets and animals: dog(s) Sexually active: No Do you think of yourself as: straight/heterosexual Current gender identity: male What is your relationship status?: How often do you talk on the phone with friends or family?: decline to answer How often do you get together with friends or relatives?: decline to answer How often do you attend zoroastrian or temple services?: decline to answer Do you belong to any clubs or organized social groups?: decline to answer Panel score (0-1 are the most socially isolated patients): 1 What type of physical activity do you participate in: walking Duration: 45-60 minutes/day Frequency: daily [place]/Islam: None Special sydney needs: No Seatbelt use: always Drive intox 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 entry driver operator: No Do you feel safe at home: Yes Do you feel safe in your relationship?: Yes Exam Narrative Exam Narrative: General: Well Developed, Awake and Alert, conversant. Skin: Warm and Dry HEENT: Head: No palpable deformities, Normocephalic, abrasion noted to his occipital scalp, no active bleeding at this time peer Eyes: Pupils PERRLA, EOM's intact. No periorbital eccymosis or step off Ears: Canal patent. Tympanic membranes are clear . No luciano's sign, no hemptympanum. Nose/Face: Atraumatic. Facial bones nontender to palpation and stable with manipulation. Mouth/Throat: No intraoral trauma. Teeth and mandible are intact. Neck: no step off, no deformity to palpation of C-spine. Trachea midline. Chest: No surface trauma. Nontender without crepitus or deformity. Lungs clear to ausculatation bilaterally. Heart: RRR, no rubs, murmurs or gallop. Abdomen: No abrasions, ecchymosis, or surface trauma. Nondistended. Nontender to palpation no guarding, rebound, or rigidity. Pelvis: Nontender to palpation and stable to compression. Femoral pulses strong and equal Extremities: no surface trauma. Sensation intact. Peripheral pulses intact and equal. Neuro: ANO x4, GCS 15, cranial nerves II through XII intact. Motor and sensory exam nonfocal. Reflexes are symmetric. Course Vital Signs Vital signs: Vital Signs Temperature 37.2 C 08/30/21 10:13 Pulse 51 L 08/30/21 10:13 Respiratory Rate 14 08/30/21 10:13 Blood Pressure 142/68 H 08/30/21 10:13 Pulse Oximetry 96 08/30/21 10:13 Temperature 37.2 C 08/30/21 10:13 Temperature Source Temporal Artery Scan 08/30/21 10:13 Pulse 51 L 08/30/21 10:13 Respiratory Rate 14 08/30/21 10:13 Respiratory Effort Non-Labored 08/30/21 10:19 Respiratory Depth Normal 08/30/21 10:19 Respiratory Pattern Normal 08/30/21 10:19 Blood Pressure 142/68 H 08/30/21 10:13 Blood Pressure Position Sitting 08/30/21 10:13 Pulse Oximetry 96 08/30/21 10:13 Oxygen Delivery Method Room Air 08/30/21 10:13 Oxygen Flow Rate 0 08/30/21 10:13 Pain Level 8 08/30/21 10:13
[2021-08-30] MEDS: Cyclobenzaprine 10 MG TAB PO (11:02)
[2021-08-30] MEDS: Ondansetron O.D.T. 4 MG TABEF PO (11:02)
[2021-08-30] MEDS: Acetaminophen 500 MG TAB PO (11:02)
== END 2021-08-30 11:39 | disposition home or self-care (01) ==
PROVIDERS: Emergency Provider Registered Nurse Emergency; PCP Nurse Practitioner Family
DX: S06.0X0A Concussion without loss of consciousness, initial encounter (principal); S09.8XXA Other specified injuries of head, initial encounter; S16.1XXA Strain of muscle, fascia and tendon at neck level, initial encounter; W00.0XXA Fall on same level due to ice and snow, initial encounter; I48.91 Unspecified atrial fibrillation; Z79.01 Long term (current) use of anticoagulants
CPT/HCPCS: 99284; 70450; 72125; 99283

== ENCOUNTER 2021-11-30 08:43 | Outpatient (CLI) | payer MEDICARE, SELFPAY ==
--- OUTSIDE RECORDS SUMMARY | 2021-11-30 08:49 | XMS_ITS ---
:1950 Author Care Team Providers Name Role Phone JOVANNA FULLER NP Primary Care Provider [phone] [facility] MEDICAL RECORDS OTHER [phone] [facility] OTHER [phone] Allergies Code Code System Name Reaction Severity Status Onset NKDA ? Medications Name Status Start Date Stop Date ? ? amlodipine 10 mg tablet Active ? Not avai lable Take 1 tablet every day by oral route. apixaban 5 mg tablet Active ? Not availab le Take 1 tablet twice a day by oral route. Asprin Ec Low Dose 81 mg tablet,delayed release Active ? Not available Take 1 tablet every day by oral route. atorvastatin 80 mg tablet Active ? Not av ailable Take 1 tablet every day by oral route. cholecalciferol (vitamin D3) 125 mcg (5,000 unit) capsule Active ? Not available Take by oral route. cyclobenzaprine 5 mg tablet Active ? Not available Take 1 tablet 3 times a day by oral route. ezetimibe 10 mg tablet Active ? Not avail able Take 1 tablet every day by oral route. isosorbide mononitrate ER 30 mg tablet,extended release 24 hr Ac tive ? Not available Take 1 tablet every day by oral route. losartan 100 mg tablet Active ? Not avail able Take 1 tablet every day by oral route. Nitro-Dur 0.4 mg/hr transdermal 24 hour patch Active ? Not available Apply 1 patch every day by transdermal route. omeprazole 40 mg capsule,delayed release Active ? Not available Take 1 capsule every day by oral route. zolpidem 5 mg tablet Completed ? 10/19/2020 take 1-2 PO night of sleep study if needed Problems Name Status Onset Date Source ? Adenocarcinoma of Prostate Active 08/15/2020 ? Hyperlipidemia Active 08/15/2020 ? Essential Hypertension Active 08/15/2020 ? Coronary Arteriosclerosis Active 08/15/2020 ? Atrial Fibrillation Active 08/15/2020 ? Low Back Pain Active 08/15/2020 ? Anticoagulant Effect Active 08/15/2020 ? Snoring Active 08/16/2020 ? Psychophysiologic Insomnia Active 08/17/2020 ? Obstructive Sleep Apnea Syndrome Active ? ? Procedures None recorded. Results Lab Results None recorded. Past Encounters 08/02/2021 Obstructive Sleep Apnea Syndrome Ny Schuster, [employer] ED[employer] TRIMMER: [address] [place] [phone], Ph. 03/28/2021 Obstructive Sleep Apnea Syndrome Ny Schuster [employer] ED[employer] TRIMMER: [address] [place] [phone], Ph. 10/19/2020 Obstructive Sleep Apnea Syndrome Ny Schuster [employer] ED[employer] TRIMMER: [address] [place] [phone], Ph. 08/17/2020 Snoring; Psychophysiologic Insomnia Ny Schuster [employer]MER: [address] [place] [phone], Ph. Social History Tobacco Smoking Status Never Smoker Vaccine List Vaccine Type COVID-19, mRNA, LNP-S, PF, 100 mcg/0.5 m L dose (Moderna) 09/21/2020 10/20/2020 Plan of Care Reminders Provider Appointments None ? ? recorded. Lab None ? ? recorded. Referral None ? ? recorded. Procedures None ? ? recorded. Surgeries None ? ? recorded. Imaging None ? ? recorded. Vitals 08/02/2021 09:30AM Office 30 Height Weight BMI Blood Pressure 170.18 cm 95.25 kg 32.9 kg/m2 138/66 mm[Hg] 03/28/2021 11:15AM Office 30 Height Weight BMI Blood Pressure 170.18 cm 95.25 kg 32.9 kg/m2 116/72 mm[Hg] 10/19/2020 10:00AM Office 30 Height Weight BMI Blood Pressure 170.18 cm 95.25 kg 32.9 kg/m2 125/74 mm[Hg] 08/17/2020 10:00AM New Patient 43 Height Weight BMI 170.18 cm 92.99 kg 32.1 kg/m2
[2021-11-30 11:08] LABS: HCT 42.3 % (40.0-50.0); HGB 14.1 g/dL (13.5-17.5); MCH 29.6 pg (27.0-33.0); MCHC 33.3 % (32.0-36.0); MCV 89 fL (80-95); MPV 9.2 fL (8.0-11.0); Platelet Count 263 10^3/uL (130-400); RBC 4.77 10^6/uL (4.36-5.78); RDW 12.6 % (11.8-14.1); RDW-SD 41.2 fL; WBC 8.03 10^3/uL (4.4-10.8)
[2021-11-30 11:11] LABS: ESR 14 mm/hr (0-20)
[2021-11-30 12:05] LABS: C-Reactive Protein 0.16 mg/dL (0.0-0.3)
[2021-11-30 18:42] LABS: PSA, Screening <0.1 ng/mL (<=6.5)
== END 2021-11-30 08:44 | disposition home or self-care (01) ==
LOC: LBO 08:46
PROVIDERS: PCP Nurse Practitioner Family; Visit Provider Family Medicine
DX: M25.511 Pain in right shoulder (principal); M25.531 Pain in right wrist; R53.83 Other fatigue; Z12.5 Encounter for screening for malignant neoplasm of prostate
CPT/HCPCS: 36415; 84153; 85027; 85652; 86140

== ENCOUNTER 2022-04-18 03:53 | Outpatient (CLI) | payer MEDICARE, SELFPAY ==
[2022-04-18 11:27] LABS: Abs Immature Grans 0.01 10^3/uL (0.0-0.06); Absolute Basophil Count 0.03 10^3/uL (0.0-0.2); Absolute Eosinophil Count 0.13 10^3/uL (0.0-0.7); Absolute Lymphocyte Count 2.79 10^3/uL (1.2-3.4); Absolute Monocyte Count 0.48 10^3/uL (0.1-0.8); Absolute Neutrophil Count 2.24 10^3/uL (1.2-6.7); Basophils % 0.5; Eosinophils % 2.3; HCT 40.2 % (40.0-50.0); HGB 13.5 g/dL (13.5-17.5); Immature Grans % 0.2; Lymphocytes % 49.1; MCH 30.2 pg (27.0-33.0); MCHC 33.6 % (32.0-36.0); MCV 90 fL (80-95); MPV 9.9 fL (8.0-11.0); Monocytes % 8.5; Neutrophils % 39.4; Platelet Count 236 10^3/uL (130-400); RBC 4.47 10^6/uL (4.36-5.78); RDW 12.6 % (11.8-14.1); RDW-SD 41.8 fL; WBC 5.68 10^3/uL (4.4-10.8)
[2022-04-18 12:11] LABS: ALT 29 U/L (16-63); AST 18 U/L (15-37); Albumin 3.3 g/dL (3.4-5.0); Alkaline Phosphatase 68 U/L (46-116); Anion Gap 8.4 mmol/L (3-11); BUN 20 mg/dL (7-18); Bilirubin, Total 0.4 mg/dL (0.2-1.0); CO2 27.6 mmol/L (21.0-32.0); CREATININE 1.3 mg/dL (0.70-1.30); Calculated LDL 65 mg/dL (<100); Chloride 103 mmol/L (98-107); Cholesterol 115 mg/dL (<200); Estimated GFR 58.01 (mL/min/1.73m2); Glucose 90 mg/dL (74-106); HDL Cholesterol 35 mg/dL (40-60); Potassium 3.9 mmol/L (3.5-5.1); Sodium 139 mmol/L (136-145); TSH 2.91 uIU/mL (0.36-3.74); Total Protein 7.2 g/dL (6.4-8.2); Triglyceride 78 mg/dL (<150)
[2022-04-18 12:31] LABS: FREE T4 0.99 ng/dL (0.76-1.46)
[2022-04-22 12:20] LABS: PSA, Ultrasensitive <0.01 ng/mL (<= 6.5)
== END 2022-04-18 03:54 | disposition home or self-care (01) ==
LOC: LBO 03:53
PROVIDERS: PCP Nurse Practitioner Family; Visit Provider Nurse Practitioner Family
DX: I10 Essential (primary) hypertension (principal); I25.10 Atherosclerotic heart disease of native coronary artery without angina pectoris; Z85.46 Personal history of malignant neoplasm of prostate
CPT/HCPCS: 36415; 80053; 80061; 84153; 84439; 84443; 85025

== ENCOUNTER 2022-08-05 10:53 | Inpatient (IN) | payer MEDICARE, SELFPAY ==
[2022-08-05] VITALS (54 sets, daily range): BP systolic 122–154; BP diastolic 45–87; PULSE 38–68; RESP 12–22; TEMP 36.5–37.3; O2SAT 93–99
--- NOTE | 2022-08-05 10:45 | RT.EKG_ITS ---
APPROVED REPORT Exam: Resting ECG Reason for Exam: faint feeling Patient Location: E HR:39 bpm ECG Measurements Heart Rate 39 AXIS MA 193 P 36 QRSd 99 QRS 46 QT 400 T 40 QTc 324 Conclusion Sinus bradycardia...rate< 60. Sinus. Normal axis. No STEMI. I have reviewed and interpreted ECG and agree with software generated interpretation.
--- NOTE | 2022-08-05 11:00 | DI.RAD_ITS ---
Exam(s) XR PORTABLE CHEST AP EXAM: XR PORTABLE CHEST AP CLINICAL HISTORY: chest pain, r/o acute disease TECHNIQUE: 2D digital imaging was performed. COMPARISON: CR XR CHEST 2V PA LATERAL from 06/29/2019 FINDINGS: Monitoring devices overlie the left chest. LUNGS: Clear. No pleural abnormality seen. HEART: Normal size. AORTA: Normal diameter. BONES: Degenerative changes. Sternal wires. Soft tissues: Unremarkable. IMPRESSION: No acute findings. DATA REPOSITORY: RADIATION DOSE DELIVERED:
--- NOTE | 2022-08-05 11:08 | ED.GENADUL_ITS ---
Discharge Plan Disposition Patient Disposition: Admit to [facility] Condition: Stable Discharge Details Clinical Impression: Symptomatic bradycardia, Lightheadedness Admit Date/Time: 08/05/22 14:55 Admit Provider: Symone Scales Attending Provider: Symone Scales Primary Care Provider: Jacquelyn Reyes ED Provider: Shakira Conde Discharge Data Discharge Date/Time-TO BE ENTERED AT DEPARTURE: 08/05/22 15:56 Medical Decision Making 1110 -- 71-year-old male with a history of hypertension, hyperlipidemia, atrial fibrillation on Eliquis, coronary artery disease with history of CABG, obstructive sleep apnea, GERD and prostate cancer presents for an episode of lightheadedness and chest pressure that started while he was driving prior to arrival. Heart rate 50s on arrival. Blood pressure moderately hypertensive. EKG notes a rate of 39, sinus, normal axis and no STEMI. Review of records note that his heart rate is normally in the 40s but has dipped down to as low as 39. Pacer pads placed. As patient states his chest pressure was improved with nitro and he has a significant cardiac history, will likely need admission for telemetry monitoring. Although he is taking Eliquis, consider PE with chest pressure and dizziness complaint. Consider dehydration. Will obtain screening labs, CT chest and give a bolus of IV fluids and will contact [facility] cardiology for further recommendations. Review of [facility] cardiology records note that patient was scheduled for a pharmacological stress test but his heart rate decreased to 37 so this was switched to an exercise nuclear stress test on 07/25 which showed no evidence of ischemia and was placed on a Zio patch secondary to reported chest pain with palpitations. 1240 --labs and imaging reviewed. Normal white blood cell count. Normal electrolytes. Troponin negative. Chest x-ray negative for acute disease. Patient's heart rate decreased to 34. His heart rate did increase to 60s when getting up and using urinal. His blood pressure remained stable at 130s/60s. Patient assessed at bedside he endorses that he had some recent lightheadedness and chest pressure but states this is now improving. Repeat EKG notes a rate of 45 and sinus bradycardia. He has continued to have bradycardia with a rate as low as 32. We will order a dose of atropine and and continue to monitor. [facility] cardiology consult initiated. 1315 -- Heart rate now 50 after atropine. BP stable, 131/52. 1410 --Case discussed with [facility] cardiology Dr. Ernandez -- agrees that patient's presentation may have been secondary to symptomatic bradycardia. Does not see an indication for emergent transfer. [facility] has no bed availability at this time. Recommends that patient not drive until further evaluation with cardiology. Agrees with plan for 24-hour observation and will pass along message to Dr. Juan for consideration for placement of the pacemaker. Discussed that most likely the plan will be to make an appointment to schedule this procedure. 1430 --Case discussed with hospitalist who preferred transfer to [facility] or [facility] list in 24 hours. We contacted [facility] and [facility] and they have no bed availability and no ability to place patient on a wait list in 24 to 48 hours due to over capacity. I spoke with Dr. Ernandez again -- he again does not recommend emergent transfer or any acute treatment recommendations unless patient has a pause greater than 3 seconds. If a pause > 3 sec occurs, would recommend atropine, temporary pacing or consideration of a pressor. Case discussed again with hospitalist who accepts patient for admission upstairs. Medical Records Medical records reviewed: Yes I reviewed the patient's medical records. Medical records narrative: Echo December 2020 - [facility] Conclusion Normal left ventricular wall thickness and chamber size.? Estimated ejection fraction is 50 to 55%.? There is mild global hypokinesis Normal right ventricular size and systolic function Both atria are mildly dilated The aortic valve is trileaflet and mildly sclerotic with mild regurgitation Mild mitral annular calcification.? Mild mitral regurgitation Normal tricuspid valve with trace to mild regurgitation Normal pulmonic valve with trace physiologic regurgitation Dilated ascending aorta measuring 4.11 cm Echo May 2021 - [facility] Summary 1. Normal left ventricular chamber size is normal. Mild concentric left ventricular hypertrophy is observed. There is normal global left ventricular systolic function with the quantitative left ventricular ejection fraction by biplane Herrmann's method of 62%. There are no left ventricular segmental wall motion abnormalities. Doppler assessment is consistent with normal left-sided filling pressures. 2. The right ventricle is normal in size. Right ventricular global systolic function is normal. The estimated pulmonary artery systolic pressure is 14 (assuming RA pressure 3 mmHg). 3. The atria are normal in size. 4. There is no hemodynamically significant valvular disease present. 5. There is moderate dilatation of the ascending aorta (4.2 cm). Imaging Data Radiologic Study: Radiologist's impression: XR PORTABLE CHEST AP CLINICAL HISTORY:? chest pain, r/o acute disease TECHNIQUE:? 2D digital imaging was performed. COMPARISON:? CR XR CHEST 2V PA ? LATERAL from 06/29/2019 FINDINGS: ?Monitoring devices overlie the left chest. LUNGS: Clear. No pleural abnormality seen. HEART: Normal size. AORTA: Normal diameter. BONES: Degenerative changes.? Sternal wires. Soft tissues: Unremarkable. IMPRESSION: No acute? findings. CT CHEST PE CTA CLINICAL HISTORY: ? chest pressure, dizziness, r/o PE. TECHNIQUE:? Imaging Protocol:? Axial CT angiography was performed with multi- slice acquisition and multi-planar reconstructions as well as axial, coronal and sagittal MIP reconstructions. CONTRAST MATERIAL:? Intravenous: Omnipaque 350 Contrast volume:100 ml COMPARISON:? CT CT ABDOMEN ? PELVIS W from 01/08/2019 CR XR PORTABLE CHEST AP from 08/05/2022 FINDINGS: Pulmonary Arteries: No evidence of filling defect to suggest pulmonary emboli. Tracheobronchial tree: Patent where visualized. Mediastinum and Teri: No dominant adenopathy or fluid collection. Pulmonary parenchyma: No consolidation or dominant measurable mass. Pleura: No effusion or pneumothorax. Heart: The heart is MILDLY dilated.? [id number] coronary artery calcifications are seen. Aorta: ASCENDING AORTA MEASURES 4.2 CM no aneurysm.? No dissection.? Upper abdomen: STATUS POST CHOLECYSTECTOMY.? Unremarkable.? Bones: Unremarkable for age. Tubes, Catheters, and Lines: A MONITORING DEVICE OVER LEFT UPPER CHEST. IMPRESSION: No evidence of pulmonary embolism OR OTHER ACUTE ABNORMALITY..? Lab Data Lab results reviewed: Yes I reviewed the patient's lab results. Labs: Laboratory Tests Range/Units 08/05/22 08/05/22 08/05/22 11:11 11:11 13:44 WBC (4.4-10.8) 10^3/uL 6.31 RBC (4.36-5.78) 10^6/uL 4.88 Hgb (13.5-17.5) g/dL 14.6 Hct (40.0-50.0) % 43.6 MCV (80-95) fL 89 MCH (27.0-33.0) pg 29.9 MCHC (32.0-36.0) % 33.5 RDW (11.8-14.1) % 12.0 Plt Count (130-400) 10^3/uL 267 MPV (8.0-11.0) fL 9.2 Immature Gran % 0.3 Neutrophils % 51.1 Lymphocytes % 37.4 Monocytes % 8.2 Eosinophils % 2.2 Basophils % 0.8 Nucleated RBC % (0.0-0.3) % 0.0 Absolute Neutrophils (1.2-6.7) 10^3/uL 3.22 Absolute Lymphocytes (1.2-3.4) 10^3/uL 2.36 Absolute Monocytes (0.1-0.8) 10^3/uL 0.52 Absolute Eosinophils (0.0-0.7) 10^3/uL 0.14 Absolute Basophils (0.0-0.2) 10^3/uL 0.05 Sodium (136-145) mmol/L 138 Potassium (3.5-5.1) mmol/L 3.9 Chloride (98-107) mmol/L 103 Carbon Dioxide (21.0-32.0) mmol/L 29.1 Anion Gap (3-11) mmol/L 5.9 BUN (7-18) mg/dL 15 Creatinine (0.70-1.30) mg/dL 1.1 Est GFR (CKD-EPI 2020) (mL/min/1.73m2) 70.88 Glucose (74-106) mg/dL 106 Calcium (8.5-10.1) mg/dL 9.8 Magnesium (1.8-2.4) mg/dL 2.0 Total Bilirubin (0.2-1.0) mg/dL 0.4 AST (15-37) U/L 13 L ALT (16-63) U/L 25 Alkaline Phosphatase (46-116) U/L 72 Troponin I (<or=60) ng/L < 50 < 50 Total Protein (6.4-8.2) g/dL 7.6 Albumin (3.4-5.0) g/dL 3.7 COVID-19 Source Range/Units 08/05/22 13:47 WBC (4.4-10.8) 10^3/uL RBC (4.36-5.78) 10^6/uL Hgb (13.5-17.5) g/dL Hct (40.0-50.0) % MCV (80-95) fL MCH (27.0-33.0) pg MCHC (32.0-36.0) % RDW (11.8-14.1) % Plt Count (130-400) 10^3/uL MPV (8.0-11.0) fL Immature Gran % Neutrophils % Lymphocytes % Monocytes % Eosinophils % Basophils % Nucleated RBC % (0.0-0.3) % Absolute Neutrophils (1.2-6.7) 10^3/uL Absolute Lymphocytes (1.2-3.4) 10^3/uL Absolute Monocytes (0.1-0.8) 10^3/uL Absolute Eosinophils (0.0-0.7) 10^3/uL Absolute Basophils (0.0-0.2) 10^3/uL Sodium (136-145) mmol/L Potassium (3.5-5.1) mmol/L Chloride (98-107) mmol/L Carbon Dioxide (21.0-32.0) mmol/L Anion Gap (3-11) mmol/L BUN (7-18) mg/dL Creatinine (0.70-1.30) mg/dL Est GFR (CKD-EPI 2020) (mL/min/1.73m2) Glucose (74-106) mg/dL Calcium (8.5-10.1) mg/dL Magnesium (1.8-2.4) mg/dL Total Bilirubin (0.2-1.0) mg/dL AST (15-37) U/L ALT (16-63) U/L Alkaline Phosphatase (46-116) U/L Troponin I (<or=60) ng/L Total Protein (6.4-8.2) g/dL Albumin (3.4-5.0) g/dL COVID-19 Source Nasal/Nares ECG Data Attestation: I personally reviewed and interpreted this ECG (s) as follows: Interpretation: #1 -- Rate of 39, sinus, normal axis, no ischemic findings. #2 -- Rate of 45, sinus, normal axis, no ischemic findings. HPI General Mode of arrival: ambulatory . Date/Time Provider Initiated Documentation: 08/05/22 10:55 . Limitations to Documentation: no limitations . Information obtained by: patient . HPI Narrative: Patient is a 71-year-old male with a history of hypertension, hyperlipidemia, atrial fibrillation on Eliquis, coronary artery disease with history of CABG, obstructive sleep apnea, GERD and prostate cancer presents for an episode of lightheadedness and chest pressure that started while he was driving prior to arrival. 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 He states he felt like he was going to pass out. He states around the same time he developed substernal chest pressure which he states was 8/10. He states he took 1 nitro without relief and then took a second nitro and it improved his pain to 4/10. Patient currently denies any significant chest pressure. Patient states his lightheadedness lasted over the hour but has improved. Patient states he has chronic bradycardia and has had intermittent episodes of chest pain for which she is followed by [facility] iology and who performed a recent stress test and placed a monitoring manager to be in place for the next 2 weeks. Patient does admit to some nausea today but denies any fever, sore throat, difficulty breathing, vomiting, diarrhea or abdominal pain. at bedside states that patient does not drink any water throughout the day. Patient states he had coughing this morning which is his usual but has not drank any water. states the patient will usually have dave ashley later today but no water. Patient does endorse that his CPAP machine did not work overnight and he subsequently did not sleep well overnight. Related Data Home Medications Medication Instructions Recorded Confirmed aspirin 81 mg chewable tablet 81 mg PO DAILY 06/21/13 08/05/22 cholecalciferol (vitamin D3) 125 125 mcg PO DAILY 12/30/19 08/05/22 mcg (5,000 unit) tablet (Vitamin D3) nitroglycerin 0.4 mg sublingual 0.4 mg sublingual .COMPLEX #50 06/20/20 08/05/22 tablet tab-caps amlodipine 10 mg tablet 10 mg PO DAILY #90 tabs 10/15/21 08/05/22 ibuprofen 800 mg tablet 800 mg PO PRN pain #60 tabs 12/27/21 08/05/22 atorvastatin 80 mg tablet 80 mg PO DAILY #90 tabs 12/28/21 08/05/22 omeprazole 40 mg capsule,delayed 40 mg PO DAILY #90 caps 03/15/22 08/05/22 release ezetimibe 10 mg tablet (Zetia) 10 mg PO DAILY #90 tabs 03/27/22 08/05/22 isosorbide mononitrate 30 mg 30 mg PO DAILY #90 tabs 07/15/22 08/05/22 tablet,extended release 24 hr losartan 100 mg tablet 100 mg PO DAILY #90 tabs 07/15/22 08/05/22 apixaban 5 mg tablet 5 mg PO BID #180 tabs 08/07/22 Previous Rx's Medication Instructions Recorded nitroglycerin 0.4 mg sublingual 0.4 mg sublingual .COMPLEX #50 06/20/20 tablet tab-caps amlodipine 10 mg tablet 10 mg PO DAILY #90 tabs 10/15/21 ibuprofen 800 mg tablet 800 mg PO PRN pain #60 tabs 12/27/21 atorvastatin 80 mg tablet 80 mg PO DAILY #90 tabs 12/28/21 omeprazole 40 mg capsule,delayed 40 mg PO DAILY #90 caps 03/15/22 release ezetimibe 10 mg tablet (Zetia) 10 mg PO DAILY #90 tabs 03/27/22 isosorbide mononitrate 30 mg 30 mg PO DAILY #90 tabs 07/15/22 tablet,extended release 24 hr losartan 100 mg tablet 100 mg PO DAILY #90 tabs 07/15/22 apixaban 5 mg tablet 5 mg PO BID #180 tabs 08/07/22 Allergies Allergy/AdvReac Type Severity Reaction Status Date / Time metoprolol AdvReac Severe Bradycardia Verified 08/05/22 11:04 General Stated Complaint: Chest Pain BRAFDORD: 2 Review of Systems All systems reviewed & are unremarkable except as noted in HPI and below Constitutional Constitutional: Reports as per HPI, Denies chills and Denies fever(s) Eyes Eyes: Denies blurry vision ENT Ears, Nose, Mouth, and Throat: Reports dizziness, Denies sore throat and Denies throat swelling Cardiovascular Cardiovascular: Reports chest pain and Denies dyspnea Respiratory Respiratory: Denies cough and Denies dyspnea Gastrointestinal Gastrointestinal: Denies abdominal pain, Denies diarrhea and Denies vomiting Genitourinary Genitourinary: Denies hematuria and Denies dysuria Musculoskeletal Musculoskeletal: Denies back pain and Denies numbness Integumentary/Breasts Skin/Breast: Denies lesions and Denies rash Neurologic Neurologic: Reports dizziness, Denies localized weakness and Denies numbness Allergic/Immunologic Allergic/Immunologic: Denies throat swelling PFSH All Active Problems (Updated 08/08/22 @ 00:05 by GAGE ORTEGA) Sick sinus syndrome (Acute) Subclinical hypothyroidism (Acute) Syncope (Chronic) Symptomatic bradycardia (Acute) Lightheadedness (Acute) Coronary artery disease (Chronic) Obstructive sleep apnea (Chronic) PSG 08/2020, on CPAP Atrial fibrillation (Chronic) S/p cardioversion 03/07/21 On eliquis Chronic anticoagulation (Chronic) History of prostate cancer (Chronic ~2015) Brian score 6, s/p radical prostatectomy 2016 Essential hypertension (Chronic) Hyperlipidemia (Chronic) Primary osteoarthritis of left shoulder (Chronic) Lumbar back pain with radiculopathy affecting lower extremity (Chronic) Gastroesophageal reflux disease with esophagitis (Chronic) EGD 2013 Medical History Adenocarcinoma of prostate (~2015) Brian score 6, s/p radical prostatectomy 2016 COVID-19 (~01/10/22) Surgical History H/O umbilical hernia repair History of esophagogastroduodenoscopy (EGD) (04/04/14) 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 Maternal Grandmother No problems noted. Paternal Grandfather No problems noted. Paternal Grandmother No problems noted. Social History Smoking/Tobacco Use Status: Never Smoking risk assessment performed?: Yes Alcohol Intake: current Alcohol Intake frequency: a few times a week Alcohol type: beer Drug use: Never Substance use type: does not use Caregiver/Support person: No Household members: spouse and children Housing: house Communication Needs: None Do you need help understanding health information?: Never Pets and animals: Yes Pets and animals: dog(s) Sexually active: No Do you think of yourself as: straight/heterosexual Current gender identity: male What is your relationship status?: How often do you talk on the phone with friends or family?: decline to answer How often do you get together with friends or relatives?: decline to answer How often do you attend episcopalian or roman catholic services?: decline to answer Do you belong to any clubs or organized social groups?: decline to answer Panel score (0-1 are the most socially isolated patients): 1 What type of physical activity do you participate in: walking Duration: 45-60 minutes/day Frequency: daily [place]/Methodist: None Special sydney needs: No Seatbelt use: always Drive intox 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 tank driver: No Do you feel safe at home: Yes Do you feel safe in your relationship?: Yes Exam Const General: cooperative and no acute distress Orientation: alert, awake and oriented x3 HENMT Head: normal to inspection Face and sinus: normal facial exam Eyes General: appearance normal, both eyes and all related structures Pupils: PERRL EOM: EOM intact bilaterally Neck Neck: normal visual inspection and No submandibular swelling Lymphatic: no lymphadenopathy noted Chest Chest: normal inspection of the chest and no tenderness Resp Effort & Inspection: normal respiratory effort and able to speak in complete sentences Auscultation: clear to auscultation bilaterally Cardio Rate: bradycardic Rhythm: regular rhythm GI Inspection: normal to inspection Palpation: soft, not firm, not rigid and nontender Auscultation: normal bowel sounds Male General Exam: Yes normal external exam Back/Spine/Pelvis Thoracic/Lumbar Spine: thoracic and lumbar spine normal to inspection Pelvis: no pain with anterior-posterior compression Skin General skin exam: no rashes or lesions noted Neuro General: patient alert, patient awake, patient oriented x3, moves all extremities, no meningeal signs and no focal motor deficits Cranial Nerves: CN's II-XI intact bilaterally Cognition: normal cognition Speech: speech normal Motor: muscle tone normal throughout and strength 5/5 throughout Sensory Exam: no sensory deficits noted Extrem General: normal to inspection, full ROM, capillary refill normal, no calf tenderness bilaterally and no edema Psych Appearance: grossly normal Mental Status: mental status grossly normal Speech and Movement: speech and movement normal Affect: normal affect Course Vital Signs Vital signs: Vital Signs Temperature 99.1 F 08/05/22 11:00 Pulse 52 L 08/05/22 11:00 Respiratory Rate 17 08/05/22 11:00 Blood Pressure 154/68 H 08/05/22 11:00 Pulse Oximetry 97 08/05/22 11:00 Temperature 99.1 F 08/05/22 11:00 Temperature Source Temporal Artery Scan 08/05/22 11:00 Pulse 52 L 08/05/22 11:00 Respiratory Rate 17 08/05/22 11:00 Respiratory Effort 08/05/22 11:02 Blood Pressure 154/68 H 08/05/22 11:00 Blood Pressure Position Sitting 08/05/22 11:00 Pulse Oximetry 97 08/05/22 11:00 Oxygen Delivery Method Room Air 08/05/22 11:00 Oxygen Flow Rate 0 08/05/22 11:00 Pain Level 0 08/05/22 11:00 Comment 08/05/22 11:00 Critical Care Time Critical Care Time Critical Care Time: Yes Total Critical Care Time: 30 Attestation: I spent 30 minutes of critical care time with this patient. This does not include time spent on separately reported billable procedures. PAWSS Have you Been Recently Intoxicated or Drunk Within the Last 30 days?: No Have you Ever Experienced Previous Episodes of Alcohol Withdrawal?: No Have you ever Experienced Withdrawal Seizures?: No Have you ever Experienced Delirium Tremens(DT)s?: No Have you ever undergone Alcohol Rehabilitation Treatment (i.e, inpt ot outpatient treatment programs)?: No Have you ever Experienced Blackouts?: No Have you ever Combined Alcohol with other Downers within the last 90 days?: No Have you ever Combined Alcohol with any other Substance of Abuse during the last 90 days?: No Result: 0
[2022-08-05 11:18] LABS: Abs Immature Grans 0.02 10^3/uL (0.0-0.06); Absolute Basophil Count 0.05 10^3/uL (0.0-0.2); Absolute Eosinophil Count 0.14 10^3/uL (0.0-0.7); Absolute Lymphocyte Count 2.36 10^3/uL (1.2-3.4); Absolute Monocyte Count 0.52 10^3/uL (0.1-0.8); Absolute Neutrophil Count 3.22 10^3/uL (1.2-6.7); Basophils % 0.8; Eosinophils % 2.2; HCT 43.6 % (40.0-50.0); HGB 14.6 g/dL (13.5-17.5); Immature Grans % 0.3; Lymphocytes % 37.4; MCH 29.9 pg (27.0-33.0); MCHC 33.5 % (32.0-36.0); MCV 89 fL (80-95); MPV 9.2 fL (8.0-11.0); Monocytes % 8.2; Neutrophils % 51.1; Platelet Count 267 10^3/uL (130-400); RBC 4.88 10^6/uL (4.36-5.78); RDW-SD 39.5 fL; WBC 6.31 10^3/uL (4.4-10.8)
[2022-08-05 11:45] LABS: ALT 25 U/L (16-63); AST 13 U/L (15-37); Albumin 3.7 g/dL (3.4-5.0); Alkaline Phosphatase 72 U/L (46-116); Anion Gap 5.9 mmol/L (3-11); BUN 15 mg/dL (7-18); Bilirubin, Total 0.4 mg/dL (0.2-1.0); CO2 29.1 mmol/L (21.0-32.0); CREATININE 1.1 mg/dL (0.70-1.30); Calcium 9.8 mg/dL (8.5-10.1); Chloride 103 mmol/L (98-107); Estimated GFR 70.88 (mL/min/1.73m2); Glucose 106 mg/dL (74-106); Potassium 3.9 mmol/L (3.5-5.1); Sodium 138 mmol/L (136-145); Total Protein 7.6 g/dL (6.4-8.2); Troponin I < 50 ng/L (<or=60)
[2022-08-05] MEDS: ACETAMINOPHEN 1,000 MG/100 ML BTL 400 MG IVPB (11:47)
[2022-08-05] MEDS: Normal Saline 500 ML IV (11:48)
--- NOTE | 2022-08-05 12:19 | DI.CT_ITS ---
Exam(s) CT CHEST PE CTA EXAM: CT CHEST PE CTA CLINICAL HISTORY: chest pressure, dizziness, r/o PE. TECHNIQUE: Imaging Protocol: Axial CT angiography was performed with multi-slice acquisition and mu lti-planar reconstructions as well as axial, coronal and sagittal MIP reconstructions. CONTRAST MATERIAL: Intravenous: Omnipaque 350 Contrast volume:100 ml COMPARISON: CT CT ABDOMEN PELVIS W from 01/08/2019 CR XR PORTABLE CHEST AP from 08/05/2022 FINDINGS: Pulmonary Arteries: No evidence of filling defect to suggest pulmonary emboli. Tracheobronchial tree: Patent where visualized. Mediastinum and Teri: No dominant adenopathy or fluid collection. Pulmonary parenchyma: No consolidation or dominant measurable mass. Pleura: No effusion or pneumothorax. Heart: The heart is MILDLY dilated. [id number] coronary artery calcifications are seen. Aorta: ASCENDING AORTA MEASURES 4.2 CM no aneurysm. No dissection. Upper abdomen: STATUS POST CHOLECYSTECTOMY. Unremarkable. Bones: Unremarkable for age. Tubes, Catheters, and Lines: A MONITORING DEVICE OVER LEFT UPPER CHEST. IMPRESSION: No evidence of pulmonary embolism OR OTHER ACUTE ABNORMALITY.. RADIATION DOSE DELIVERED: 437.57mGy.cm Total DLP DATA REPOSITORY: All CT scans at this facility are submitted to the National Radiology Data Registry (NRDR) Dose Index Registry (DIR) with the [employer] (ACR). RADIATION OPTIMIZATION: All CT scans at this facility use at least one of these dose optimization te chniques: automated exposure control; mA and/or kV adjustment per patient size (includes targeted exa ms where dose is matched to clinical indication); or iterative reconstruction.
[2022-08-05] MEDS: Omnipaque 350 MG/ML 100 ML BTL IJ (12:26)
[2022-08-05] MEDS: Normal Saline - Diluent 50 ML VIAL IV (12:26)
[2022-08-05] MEDS: Normal Saline Flush 10 ML SYR IVP (12:28)
--- NOTE | 2022-08-05 12:41 | NUR.NOTE ---
Nursing Note: Pt experiencing bradycardia dipping to HR of 35 while resting with eyes closed. Pt complains of lightheadedness and tingly fingers at these times. Continues to have chest and back pressure.
--- NOTE | 2022-08-05 12:45 | RT.EKG_ITS ---
APPROVED REPORT Exam: Resting ECG Reason for Exam: bradycardia Patient Location: E HR:45 bpm ECG Measurements Heart Rate 45 AXIS ID 209 P 46 QRSd 96 QRS 56 QT 430 T 8 QTc 373 Conclusion Sinus bradycardia...rate< 60. Sinus. Normal axis. No STEMI. I have reviewed and interpreted ECG and agree with software generated interpretation.
--- NOTE | 2022-08-05 13:49 | NUR.NOTE ---
Nursing Note: Pt reports feeling better -denies lightheadedness,chest pressure improved
[2022-08-05 13:53] LABS: Source Nasal/Nares
[2022-08-05 14:11] LABS: Troponin I < 50 ng/L (<or=60)
[2022-08-05 15:12] LABS: COVID-19 PCR Negative (Negative)
[2022-08-05] MEDS: Atropine 1 MG/10 ML SYRINGE 0.5 MG IVP ×2 (16:35→22:31)
--- NOTE | 2022-08-05 16:50 | W.PM.HP.N ---
Date of service: 08/05/22 Time of Service: 16:50 Assessment and Plan Assessment and plan (1) Symptomatic bradycardia: Status: Acute Assessment and plan: Suspect sick sinus syndrome. Will continue to monitor - in the ICU - with prn atropine ordered. I attempted calling [facility] xfer center to emphasize that the patient had a syncopal episode which would make him a higher priority for transfer. However, they are at capacity and are not listing for tomorrow. They recommended calling back tomorrow morning. (2) Syncope: Status: Chronic Assessment and plan: Due to above. As above (3) Atrial fibrillation: Status: Chronic Assessment and plan: Continue anticoagulation. (4) Coronary artery disease: Status: Chronic Assessment and plan: Continue home therapy. (5) Obstructive sleep apnea: Status: Chronic Assessment and plan: Continue home CPAP. (6) DVT prophylaxis: Status: Acute Assessment and plan: Conitnue home apixaban (7) Discharge planning issues: Status: Acute Assessment and plan: Full code Will re-attempt transfer to [facility] tomorrow (the patient strongly prefers [facility]; [facility] does not have beds either). Total Critical Care Time 60 minutes. History of Present Illness History of Present Illness Chief Complaint: feeling faint Narrative: Mr Virk is a 71 year old male with PMHx of Afib, CAD s/p CABG, Afib on anticoagulation, WINIFRED on CPAP, hypertension, hyperlipidemia, who had a negative MPI stress test at [facility] 2 weeks ago, who presented to [facility] ED today after feeling faint while driving and, reportedly, fainting for several seconds in front of the wheel. When he came to it a few seconds later, he pulled off the road. He also reported having pressure in his neck and chest, as well as between his shoulder blades. Nitroglycerin (he took 2) partially helped the pain. He felt weak. His brother in law took him to the ER. Here, in the ER, he felt faint and almost fell over backwards. In the ED, he was found to be in sinus bradycardia with HR down to 32. For this, he received a dose of atropine in the ED with HR improving, and the patient feeling better. [facility] cardiology was consulted and did not have beds for transfer. It was felt at the time that the patient did not meet criteria for emergent transfer but would benefit from 24 hrs of observation. Review of Systems All systems reviewed & are unremarkable except as noted in HPI and below PFSH All Active Problems (Updated 08/05/22 @ 17:29 by Symone Scales MD) Discharge planning issues (Acute) DVT prophylaxis (Acute) Syncope (Chronic) Symptomatic bradycardia (Acute) Lightheadedness (Acute) Coronary artery disease (Chronic) Obstructive sleep apnea (Chronic) PSG 08/2020, on CPAP Atrial fibrillation (Chronic) S/p cardioversion 03/07/21 On eliquis Chronic anticoagulation (Chronic) History of prostate cancer (Chronic ~2015) [place] score 6, s/p radical prostatectomy 2016 Essential hypertension (Chronic) Hyperlipidemia (Chronic) Primary osteoarthritis of left shoulder (Chronic) Lumbar back pain with radiculopathy affecting lower extremity (Chronic) Gastroesophageal reflux disease with esophagitis (Chronic) EGD 2013 Medical History Adenocarcinoma of prostate (~2015) Brian score 6, s/p radical prostatectomy 2016 COVID-19 (~01/10/22) Surgical History H/O umbilical hernia repair History of esophagogastroduodenoscopy (EGD) (04/04/14) 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 Maternal Grandmother No problems noted. Paternal Grandfather No problems noted. Paternal Grandmother No problems noted. Social History Smoking/Tobacco Use Status: Never Smoking risk assessment performed?: Yes Alcohol Intake: current Alcohol Intake frequency: a few times a week Alcohol type: beer Drug use: Never Substance use type: does not use Caregiver/Support person: No Household members: spouse and children Housing: house Communication Needs: None Do you need help understanding health information?: Never Pets and animals: Yes Pets and animals: dog(s) Sexually active: No Do you think of yourself as: straight/heterosexual Current gender identity: male What is your relationship status?: How often do you talk on the phone with friends or family?: decline to answer How often do you get together with friends or relatives?: decline to answer How often do you attend hoahaoism or christian services?: decline to answer Do you belong to any clubs or organized social groups?: decline to answer Panel score (0-1 are the most socially isolated patients): 1 What type of physical activity do you participate in: walking Duration: 45-60 minutes/day Frequency: daily Sydney/Caodaism: None Special sydney needs: No Seatbelt use: always Drive 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 Do you feel safe at home: Yes Do you feel safe in your relationship?: Yes Meds Allergies and Home Medications Allergies Allergy/AdvReac Type Severity Reaction Status Date / Time metoprolol AdvReac Severe Bradycardia Verified 08/05/22 11:04 Home Medications Medication Instructions Recorded Confirmed Type aspirin 81 mg chewable tablet 81 mg PO DAILY 06/21/13 08/05/22 History cholecalciferol (vitamin D3) 125 125 mcg PO DAILY 12/30/19 08/05/22 History mcg (5,000 unit) tablet (Vitamin D3) apixaban 5 mg tablet 5 mg PO BID #180 tabs 02/25/20 08/05/22 Rx nitroglycerin 0.4 mg sublingual 0.4 mg sublingual .COMPLEX #50 06/20/20 08/05/22 Rx tablet tab-caps amlodipine 10 mg tablet 10 mg PO DAILY #90 tabs 10/15/21 08/05/22 Rx ibuprofen 800 mg tablet 800 mg PO PRN pain #60 tabs 12/27/21 08/05/22 Rx atorvastatin 80 mg tablet 80 mg PO DAILY #90 tabs 12/28/21 08/05/22 Rx omeprazole 40 mg capsule,delayed 40 mg PO DAILY #90 caps 03/15/22 08/05/22 Rx release ezetimibe 10 mg tablet (Zetia) 10 mg PO DAILY #90 tabs 03/27/22 08/05/22 Rx isosorbide mononitrate 30 mg 30 mg PO DAILY #90 tabs 07/15/22 08/05/22 Rx tablet,extended release 24 hr losartan 100 mg tablet 100 mg PO DAILY #90 tabs 07/15/22 08/05/22 Rx Exam Narrative Exam Narrative: General: Pleasant male who appears comfortable in bed, HR on the monitor in the 40s (SB), A&OX3, NAD Neurological: A&Ox3, no focal deficits Psychiatric: Appropriate speech pattern/content Skin: Visible skin intact HEENT: Atraumatic, normocephalic, EOMI, dry MM, clear oropharynx, no submandibular or cervical lymphadenopathy, no goiter or JVD Cardiovascular: RRR, no m/r/g Lungs: CTAB Gastrointestinal: soft, nontender, nondistended Genitourinary: deferred Extremities: no edema BLEs, 1+ pedal pulses B Results Imaging Additional studies: CXR: No acute? findings. CTA chest: No evidence of pulmonary embolism OR OTHER ACUTE ABNORMALITY..? EKG #1: HR 39, SB, no acute ischemia, T wave inversions in lead III (old). EKG #2: HR 45, SB, no acute ischemia, unchanged. Labs Result diagrams: 08/05/22 11:11 08/05/22 11:11 Labs: Laboratory Results - last 24 hr 08/05/22 08/05/22 08/05/22 11:11 11:11 13:44 WBC 6.31 RBC 4.88 Hgb 14.6 Hct 43.6 MCV 89 MCH 29.9 MCHC 33.5 RDW 12.0 Plt Count 267 MPV 9.2 Immature Gran % 0.3 Neutrophils % 51.1 Lymphocytes % 37.4 Monocytes % 8.2 Eosinophils % 2.2 Basophils % 0.8 Nucleated RBC % 0.0 Absolute Neutrophils 3.22 Absolute Lymphocytes 2.36 Absolute Monocytes 0.52 Absolute Eosinophils 0.14 Absolute Basophils 0.05 Sodium 138 Potassium 3.9 Chloride 103 Carbon Dioxide 29.1 Anion Gap 5.9 BUN 15 Creatinine 1.1 Est GFR (CKD-EPI 2020) 70.88 Glucose 106 Calcium 9.8 Magnesium 2.0 Total Bilirubin 0.4 AST 13 L ALT 25 Alkaline Phosphatase 72 Troponin I < 50 < 50 Total Protein 7.6 Albumin 3.7 COVID-19 Source SARS-CoV-2 (PCR) 08/05/22 13:47 WBC RBC Hgb Hct MCV MCH MCHC RDW Plt Count MPV Immature Gran % Neutrophils % Lymphocytes % Monocytes % Eosinophils % Basophils % Nucleated RBC % Absolute Neutrophils Absolute Lymphocytes Absolute Monocytes Absolute Eosinophils Absolute Basophils Sodium Potassium Chloride Carbon Dioxide Anion Gap BUN Creatinine Est GFR (CKD-EPI 2020) Glucose Calcium Magnesium Total Bilirubin AST ALT Alkaline Phosphatase Troponin I Total Protein Albumin COVID-19 Source Nasal/Nares SARS-CoV-2 (PCR) Negative Last Vital Signs Temp 36.9 C 08/05/22 16:09 Pulse 47 L 08/05/22 16:09 Resp 18 08/05/22 16:09 BP 143/67 H 08/05/22 15:30 Pulse Ox 98 08/05/22 16:09 PAWSS Have you Been Recently Intoxicated or Drunk Within the Last 30 days?: No Have you Ever Experienced Previous Episodes of Alcohol Withdrawal?: No Have you ever Experienced Withdrawal Seizures?: No Have you ever Experienced Delirium Tremens(DT)s?: No Have you ever undergone Alcohol Rehabilitation Treatment (i.e, inpt ot outpatient treatment programs)?: No Have you ever Experienced Blackouts?: No Have you ever Combined Alcohol with other Downers within the last 90 days?: No Have you ever Combined Alcohol with any other Substance of Abuse during the last 90 days?: No Result: 0 Time Spent Time spent with Patient: 55-74 minutes Time was spent: preparing to see the patient(eg.review tests), obtaining and/or reviewing separately otained hiistory, ordering medications,tests, procedures, referring, communicating with other health healthcare network consultant, indepentently interpreting results, counseling the patient and care coordination
--- NOTE | 2022-08-05 18:03 | RESPIRATORY ---
Patient uses a DreamStation 2 Auto-titrating CPAP device with settings of min12/max 18 with an AirTouch F20 FFM size Med, DME is [employer].
[2022-08-05 18:13] LABS: Troponin I < 50 ng/L (<or=60)
[2022-08-05] MEDS: Apixaban 5 MG TAB PO (20:11)
[2022-08-06] VITALS (31 sets, daily range): BP systolic 117–163; BP diastolic 45–80; PULSE 37–73; RESP 12–24; TEMP 36.3–36.8; O2SAT 92–97
[2022-08-06 05:47] LABS: Abs Immature Grans 0.01 10^3/uL (0.0-0.06); Absolute Basophil Count 0.04 10^3/uL (0.0-0.2); Absolute Eosinophil Count 0.15 10^3/uL (0.0-0.7); Absolute Lymphocyte Count 1.86 10^3/uL (1.2-3.4); Absolute Monocyte Count 0.38 10^3/uL (0.1-0.8); Absolute Neutrophil Count 3.39 10^3/uL (1.2-6.7); Basophils % 0.7; Eosinophils % 2.6; HCT 42.2 % (40.0-50.0); HGB 14.6 g/dL (13.5-17.5); Immature Grans % 0.2; Lymphocytes % 31.9; MCH 30.5 pg (27.0-33.0); MCHC 34.6 % (32.0-36.0); MCV 88 fL (80-95); MPV 9.4 fL (8.0-11.0); Monocytes % 6.5; Neutrophils % 58.1; Platelet Count 265 10^3/uL (130-400); RBC 4.78 10^6/uL (4.36-5.78); RDW 12.3 % (11.8-14.1); RDW-SD 39.8 fL; WBC 5.83 10^3/uL (4.4-10.8)
[2022-08-06 06:15] LABS: Anion Gap 7.3 mmol/L (3-11); BUN 15 mg/dL (7-18); CO2 26.7 mmol/L (21.0-32.0); Calcium 9.7 mg/dL (8.5-10.1); Chloride 106 mmol/L (98-107); Estimated GFR 79.47 (mL/min/1.73m2); Glucose 95 mg/dL (74-106); Potassium 4.1 mmol/L (3.5-5.1); Sodium 140 mmol/L (136-145); TSH (W/Ref FT4) 6.76 uIU/mL (0.36-3.74)
[2022-08-06 06:34] LABS: FREE T4 0.86 ng/dL (0.76-1.46)
[2022-08-06] MEDS: Atorvastatin 40 MG TAB 80 MG PO (08:24)
[2022-08-06] MEDS: Omeprazole 20 MG CAPCR PO (08:24)
[2022-08-06] MEDS: amLODIPine 10 MG TAB PO (08:25)
[2022-08-06] MEDS: Aspirin 81 MG CHEW PO (08:25)
[2022-08-06] MEDS: Isosorbide Mononitrate 30 MG TABCR PO (08:26)
[2022-08-06] MEDS: Cholecalciferol (Vitamin D3) 1,000 UNIT TAB 5000 UNITS PO (08:26)
[2022-08-06] MEDS: Apixaban 5 MG TAB PO (08:27)
[2022-08-06] MEDS: Losartan 50 MG TAB 100 MG PO (08:27)
[2022-08-06] MEDS: Ezetimibe 10 MG TAB PO (08:27)
--- NOTE | 2022-08-06 08:41 | DI.US_ITS ---
APPROVED REPORT EXAM: Comprehensive 2D, Doppler, and color-flow Echocardiogram Patient Location: In-Patient Room/Bed: [id number] Chief Executive Officer: Abril Novoa RDCS (AE) Indications: Syncope, CAD, CABG, A Fib Other Information Study Quality: Adequate. Technically limited study due to body habitus, inability to position patient exam done bedside supine. Conclusion Normal left ventricular wall thickness and chamber size. Estimated ejection fraction is 55%. No seg mental wall motion abnormalities are identified Right ventricle is mildly to moderately dilated Left atrium is mildly dilated. Right atrial size is normal Aortic valve is trileaflet and mildly sclerotic with mild regurgitation Mild mitral annular calcification. Mild mitral regurgitation Normal tricuspid valve with trace regurgitation. Right ventricular systolic pressure could not be es timated Dilated ascending aorta measuring 4.15 cm Wall motion Left Ventricle The left ventricle is normal size. The overall left ventricular systolic function appears normal. The re is normal left ventricular wall thickness. There is normal LV segmental wall motion. There is no v entricular septal defect visualized. LVEF is 55%. Right Ventricle Right ventricle is mild to moderately dilated. The right ventricular systolic function is normal. Atria Left atrium is borderline dilated. The right atrium size is normal. The interatrial septum is intact with no evidence for an atrial septal defect. Aortic Valve The Aortic valve is mildly sclerotic. Aortic valve is trileaflet. There is no aortic valvular stenosi s. Mild aortic regurgitation. Mitral Valve Mild mitral annular calcification. No evidence of mitral valve stenosis. Mild mitral regurgitation. Tricuspid Valve The tricuspid valve is normal in structure. There is no tricuspid valve stenosis. Trace tricuspid reg urgitation. Unable to assess PA pressure. Pulmonic Valve The pulmonary valve is normal in structure. There is no pulmonic valvular stenosis. There is no pulmo francisco valvular regurgitation. Great Vessels The aortic root is normal in size. The ascending aorta is moderately dilated. Aortic arch is not well visualized. IVC is normal in size and collapses >50% with inspiration. Pericardium There is no pericardial effusion. 2D Dimensions IVSD d PLAX 0.88 cm M: 0.6-1.2 LV Vol A2C d MOD 102.7 mL LVPW d PLAX 0.92 cm M: 0.6 - 1.2 LV Vol A4C d MOD 121.0 mL LVID d PLAX 5.25 cm M: 4.2 - 5.8 LA vol/ BSA A2C s A-L 34.8 mL/m2 LVDs 3.80 cm M: 2.5 - 4.0 LA Area A2C s MOD 21.81 cm2 Ao Root d 2.86 cm M: 3.1 - 3.7 LV EF A4C MOD 50.3 % RA Area A4C 18.28 cm2 LV EF A2C MOD 60.1 % RA Vol/ BSA A4C s A-L 28.3 mL/m2 LV EF Biplane MOD 53.8 % Ao Asc Diam d 4.15 cm M: 2.6 - 3.4 SV 59.87 mL LV EF Teichholz 53.3 % SV Index 29.67 mL/m2 LVEF (Herrmann's) 53.82 % M: 52 - 72 LV Volume 83.19 mL M: 62 - 150 LV Volume Index 41.18 mL/m2 M: 34 - 74 LV Vol Biplane MOD 111.2 mL FS 27.65 % M-Mode TAPSE 2.01 cm (M/F) >1.7 LV Diastology MV E' medial 0.074 (>0.07 m/s) E/A Ratio 1.1 LV E/e MED 8.40 (<14) MV E Vmax 0.62 (0.4-1.3 m/s) MV E' lateral 0.096 (>0.1 m/s) MV A Vmax 0.55 (0.4-1.3 m/s) LV E/e LAT 6.45 (<14) MV E/A Ratio 1.10 MV E/E' medial 8.41 MV E/E' lateral 6.48 Aortic Valve LVOT Area 2.92 cm2 AoV Area Vmax 2.35 cm2 LVOT Vmax 1.11 m/s AoV Area/ BSA (Vmax) 1.17 cm2/m2 LVOT Mean Han. 0.67 m/s GUNNER Mean Han. 2.01 cm2 LVOT Peak Grad 4.9 mmHg GUNNER Mean Han. Index 1.00 cm2/m2 LVOT Mean Grad 2.2 mmHg LVOT VTI 0.250 m LVOT Diam s 1.90 cm AoV Vmax 1.38 m/s Velocity Ratio 0.80 AoV Mean Han. 0.97 m/s AoV Peak Grad 7.6 mmHg LVOT SV 72.94 mL AoV Mean Grad 4.3 mmHg AoV VTI 0.287 m AoV Area VTI 2.54 cm2 AoV Area/ BSA (VTI) 1.26 cm/m2 Mitral Valve MV DT 211 (160-240 msec) MV PHT 61 msec MV Area PHT 3.59 cm2 MV VTI 0.425 m MV Area VTI 1.72 (4.0-6.0 cm2) Pulmonary Valve PV Vmax 1.27 (0.5-1.5 m/s) RVOT Peak Gr. 2.30 mmHg PV Peak Grad 6.4 mmHg RVOT Mean Gr. 1.05 mmHg PV Mean Grad 2.5 mmHg RVOT VTI 0.161 m PV VTI 0.232 m RVOT Vmax 0.76 m/s
--- NOTE | 2022-08-06 08:42 | W.CARDCONSUL ---
Date of service: 08/06/22 Time of Service: 08:43 Assessment and Plan Assessment and plan (1) Symptomatic bradycardia: Status: Acute Assessment and plan: Patient has significant bradycardia and had a brief syncopal episode while driving. He requires evaluation for possible pacemaker insertion. Pending that I would hold his anticoagulation and discussed transfer with cardiology at [facility]. Results of the Zio patch that was just done might be helpful See below. (2) Coronary artery disease: Status: Chronic Assessment and plan: Recent negative stress test (3) Atrial fibrillation: Status: Chronic Assessment and plan: Patient is status post cardioversion February 2021, after which he had significant bradycardia described. His beta-yovani was stopped in May 2021. Consultation has been done verbally with EP ashley (Saúl Bose) who felt that if symptoms occurred it would be reasonable to pursue pacemaker insertion. Appropriate it would appear since the patient is now symptomatic that pacemaker evaluation would be History of Present Illness History of Present Illness Chief Complaint: Syncope Narrative: This is a 71-year-old man who presented to the emergency room yesterday after he had a presyncopal episode while driving. In the emergency room he was profoundly bradycardic with heart rates in the 30s. He was given atropine with some increase and overnight he has been monitored, persistently bradycardic, heart rate in the 40s Patient has a longstanding cardiac history. He is followed by Dr. Juan at [facility] and last saw him about 2 weeks ago. He has a history of coronary artery disease with bypass surgery in 1996. He had a ROSADO to the LAD and a JANN to the right coronary. He had a nuclear stress test done at the end of June which showed no evidence of myocardial ischemia or infarction. Ejection fraction was preserved. He has a history of atrial fibrillation for which he has been chronically anticoagulated with Eliquis. He is not on any rate control medication. At his last cardiology visit he was bradycardic with heart rate of 45 recorded. A Zio patch was done, has been completed but not interpreted. Additional medical problems include hypertension, dyslipidemia, and sleep apnea Review of Systems Cardiovascular Comments: Patient was not interviewed or examined PFSH All Active Problems (Updated 08/05/22 @ 17:29 by Symone Scales MD) Discharge planning issues (Acute) DVT prophylaxis (Acute) Syncope (Chronic) Symptomatic bradycardia (Acute) Lightheadedness (Acute) Coronary artery disease (Chronic) Obstructive sleep apnea (Chronic) PSG 08/2020, on CPAP Atrial fibrillation (Chronic) S/p cardioversion 03/07/21 On eliquis Chronic anticoagulation (Chronic) History of prostate cancer (Chronic ~2015) Brian score 6, s/p radical prostatectomy 2016 Essential hypertension (Chronic) Hyperlipidemia (Chronic) Primary osteoarthritis of left shoulder (Chronic) Lumbar back pain with radiculopathy affecting lower extremity (Chronic) Gastroesophageal reflux disease with esophagitis (Chronic) EGD 2013 Medical History Adenocarcinoma of prostate (~2015) [place] score 6, s/p radical prostatectomy 2017 COVID-19 (~01/10/22) Surgical History H/O umbilical hernia repair History of esophagogastroduodenoscopy (EGD) (04/04/14) S/P CABG x 2 (04/14/97) ROSADO to LAD, AJNN to RCA S/P cholecystectomy S/P colonoscopy (01/16/15) S/P radical cystoprostatectomy (08/23/16) With bilateral total pelvic lymphadenectomy Family History Mother , age 73 Heart disease Father , age 68 Heart disease Hyperlipidemia Hypertension Sister Depression Brother , age 80 Alcohol abuse Cancer of kidney Heart disease Hyperlipidemia Hypertension Brother , age 73 Depression Brother Heart disease Hyperlipidemia Hypertension Stroke Daughter Depression Maternal Grandfather No problems noted. Maternal Grandmother No problems noted. Paternal Grandfather No problems noted. Paternal Grandmother No problems noted. Social History Smoking/Tobacco Use Status: Never Smoking risk assessment performed?: Yes Alcohol Intake: current Alcohol Intake frequency: a few times a week Alcohol type: beer Drug use: Never Substance use type: does not use Caregiver/Support person: No Household members: spouse and children Housing: house Communication Needs: None Do you need help understanding health information?: Never Pets and animals: Yes Pets and animals: dog(s) Sexually active: No Do you think of yourself as: straight/heterosexual Current gender identity: male What is your relationship status?: How often do you talk on the phone with friends or family?: decline to answer How often do you get together with friends or relatives?: decline to answer How often do you attend confucianist or yazidism services?: decline to answer Do you belong to any clubs or organized social groups?: decline to answer Panel score (0-1 are the most socially isolated patients): 1 What type of physical activity do you participate in: walking Duration: 45-60 minutes/day Frequency: daily Sydney/Amish: None Special sydney needs: No Seatbelt use: always Drive intox 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 public transit trolley driver: No Do you feel safe at home: Yes Do you feel safe in your relationship?: Yes Exam Narrative Exam Narrative: Patient was not interviewed or examined Results Last Vital Signs Temp 36.3 C L 08/06/22 04:00 Pulse 41 L 08/06/22 04:02 Resp 15 08/06/22 04:02 BP 118/48 L 08/06/22 04:02 Pulse Ox 96 08/06/22 04:02 Labs Result diagrams: 08/06/22 05:13 08/06/22 05:13 Labs: Laboratory Results - last 24 hr 08/05/22 08/05/22 08/05/22 11:11 11:11 13:44 WBC 6.31 RBC 4.88 Hgb 14.6 Hct 43.6 MCV 89 MCH 29.9 MCHC 33.5 RDW 12.0 Plt Count 267 MPV 9.2 Immature Gran % 0.3 Neutrophils % 51.1 Lymphocytes % 37.4 Monocytes % 8.2 Eosinophils % 2.2 Basophils % 0.8 Nucleated RBC % 0.0 Absolute Neutrophils 3.22 Absolute Lymphocytes 2.36 Absolute Monocytes 0.52 Absolute Eosinophils 0.14 Absolute Basophils 0.05 Sodium 138 Potassium 3.9 Chloride 103 Carbon Dioxide 29.1 Anion Gap 5.9 BUN 15 Creatinine 1.1 Est GFR (CKD-EPI 2020) 70.88 Glucose 106 Calcium 9.8 Magnesium 2.0 Total Bilirubin 0.4 AST 13 L ALT 25 Alkaline Phosphatase 72 Troponin I < 50 < 50 Total Protein 7.6 Albumin 3.7 TSH Free T4 COVID-19 Source SARS-CoV-2 (PCR) 08/05/22 08/05/22 08/06/22 13:47 17:45 05:13 WBC RBC Hgb Hct MCV MCH MCHC RDW Plt Count MPV Immature Gran % Neutrophils % Lymphocytes % Monocytes % Eosinophils % Basophils % Nucleated RBC % Absolute Neutrophils Absolute Lymphocytes Absolute Monocytes Absolute Eosinophils Absolute Basophils Sodium 140 Potassium 4.1 Chloride 106 Carbon Dioxide 26.7 Anion Gap 7.3 BUN 15 Creatinine 1.0 Est GFR (CKD-EPI 2020) 79.47 Glucose 95 Calcium 9.7 Magnesium 2.0 Total Bilirubin AST ALT Alkaline Phosphatase Troponin I < 50 Total Protein Albumin TSH 6.76 H Free T4 0.86 COVID-19 Source Nasal/Nares SARS-CoV-2 (PCR) Negative 08/06/22 05:13 WBC 5.83 RBC 4.78 Hgb 14.6 Hct 42.2 MCV 88 MCH 30.5 MCHC 34.6 RDW 12.3 Plt Count 265 MPV 9.4 Immature Gran % 0.2 Neutrophils % 58.1 Lymphocytes % 31.9 Monocytes % 6.5 Eosinophils % 2.6 Basophils % 0.7 Nucleated RBC % 0.0 Absolute Neutrophils 3.39 Absolute Lymphocytes 1.86 Absolute Monocytes 0.38 Absolute Eosinophils 0.15 Absolute Basophils 0.04 Sodium Potassium Chloride Carbon Dioxide Anion Gap BUN Creatinine Est GFR (CKD-EPI 2020) Glucose Calcium Magnesium Total Bilirubin AST ALT Alkaline Phosphatase Troponin I Total Protein Albumin TSH Free T4 COVID-19 Source SARS-CoV-2 (PCR)
--- NOTE | 2022-08-06 09:12 | INITIAL_ITS ---
- If Service Date Differs Date of service: 08/06/22 Time of Service: 09:12 Care Management Initial Assess REASON FOR HOSPITALIZATION:: Sick sinus syndrome PAST MEDICAL HISTORY/PAST SURGICAL HISTORY:: Medical History . Adenocarcinoma of prostate (~2015). Brian score 6, s/p radical prostatectomy 2017. COVID-19 (~01/10/22). Surgical History . H/O umbilical hernia repair. History of esophagogastroduodenoscopy (EGD) (04/04/14). S/P CABG x 2 (04/14/97). ROSADO to LAD, JANN to RCA. S/P cholecystectomy. S/P colonoscopy (01/16/15). S/P radical cystoprostatectomy (08/23/16). With bilateral total pelvic lymphadenectomy PREVIOUS FUNCTIONAL STATUS/SOCIAL/FAMILY SUPPORTS:: Resides in [place], with his , their daughter and grandson, he is independent at baseline and has a supportive family. CURRENT FUNCTIONAL STATUS:: Awaiting transfer for pacer-per MD. ADVANCE DIRECTIVES:: None on file. Has patient been provided with info about the portal/API?: Yes Did the patient sign up for the portal?: No CODE STATUS:: Full Code INSURANCE COVERAGE / FINANCIAL ISSUES:: Medicare CURRENT HOME/COMMUNITY SERVICES/EQUIPMENT:: None, currently. PRIMARY CARE PHYSICIAN:: Jacquelyn Reyes POTENTIAL DISCHARGE NEEDS:: Transfer coordination PATIENT/FAMILY EDUCATION NEEDS:: Review of transfer barriers; lack of bed availability. ANTICIPATED BARRIERS TO DISCHARGE:: Bed availability. TRANSPORTATION:: EMS-tertiary transfer. PLAN:: Saúl will be transferred to tertiary via EMS when a bed becomes available for pacer placement per MD.
[2022-08-06] MEDS: Acetaminophen 325 MG TAB PO (12:04)
--- NOTE | 2022-08-06 14:10 | PHA.REVIEW2 ---
Pharmacy Admission Review - Admission Clinical Review (Last Reviewed 04/15/22 @ 08:06 by Jacquelyn Reyes NP) Discharge planning issues (Acute) DVT prophylaxis (Acute) Symptomatic bradycardia (Acute) Lightheadedness (Acute) metoprolol Adverse Reaction (Severe, Verified 08/05/22 11:04) Bradycardia Resuscitation Status Full Code Height 5 ft 7 in Weight 90.4 kg - Renal Dosing Renal Dosing: BUN 15 mg/dL (7-18) 08/06/22 05:13 Creatinine 1.0 mg/dL (0.70-1.30) 08/06/22 05:13 Medications needing adjustments: Reviewed List of meds needing interventions: eCrCl 70 ml/min - Anticoagulation Anticoagulation: Hgb 14.6 g/dL (13.5-17.5) 08/06/22 05:13 Hct 42.2 % (40.0-50.0) 08/06/22 05:13 Plt Count 265 10^3/uL (130-400) 08/06/22 05:13 Creatinine 1.0 mg/dL (0.70-1.30) 08/06/22 05:13 DVT Prophylaxis: Reviewed Therapeutic Anticoagulation: Reviewed Medications: Apixaban - Opiate Usage Evaluate Pain Scale/Pains Meds: N/A - Relevant Labs Sodium 140 mmol/L (136-145) 08/06/22 05:13 Potassium 4.1 mmol/L (3.5-5.1) 08/06/22 05:13 Chloride 106 mmol/L (98-107) 08/06/22 05:13 Magnesium 2.0 mg/dL (1.8-2.4) 08/06/22 05:13 Electrolytes, C-Reactive P, ESR: Reviewed - DM Control DM Control: Glucose 95 mg/dL (74-106) 08/06/22 05:13 DM Control: N/A - Cardiac Review Cardiac Review: Troponin I < 50 ng/L (<or=60) 08/05/22 17:45 BP, HR, EF%: Reviewed (amlodipine, losartan, isosorbide, atropine PRN sustained HR <35) - Qtc Review QTc: Reviewed If Elevated, List meds needing intervention: QTc 373 on admission - IV to PO Switch IV Medications: Reviewed - Home Meds Home Med List reviewed: Reviewed Relevent Home Meds Not ordered & why?: all ordered - Current meds Current Medication Order Review: Reviewed (required 1 dose of atropine 08/05 @ [id number] so far)
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
[2022-08-06] MEDS: Atropine 1 MG/10 ML SYRINGE 0.5 MG IVP (22:55)
[2022-08-07] VITALS (9 sets, daily range): BP systolic 116–149; BP diastolic 51–68; PULSE 42–68; RESP 10–24; TEMP 36.2–37.1; O2SAT 96–99
[2022-08-07 06:18] LABS: Abs Immature Grans 0.02 10^3/uL (0.0-0.06); Absolute Basophil Count 0.06 10^3/uL (0.0-0.2); Absolute Eosinophil Count 0.16 10^3/uL (0.0-0.7); Absolute Lymphocyte Count 2.22 10^3/uL (1.2-3.4); Absolute Monocyte Count 0.49 10^3/uL (0.1-0.8); Absolute Neutrophil Count 3.82 10^3/uL (1.2-6.7); Basophils % 0.9; Eosinophils % 2.4; HCT 45.6 % (40.0-50.0); HGB 14.9 g/dL (13.5-17.5); Immature Grans % 0.3; Lymphocytes % 32.8; MCH 28.9 pg (27.0-33.0); MCHC 32.7 % (32.0-36.0); MCV 89 fL (80-95); MPV 9.2 fL (8.0-11.0); Monocytes % 7.2; Neutrophils % 56.4; Platelet Count 259 10^3/uL (130-400); RBC 5.15 10^6/uL (4.36-5.78); RDW 12.1 % (11.8-14.1); RDW-SD 39.4 fL; WBC 6.77 10^3/uL (4.4-10.8)
[2022-08-07 06:40] LABS: Anion Gap 8.1 mmol/L (3-11); BUN 20 mg/dL (7-18); CO2 26.9 mmol/L (21.0-32.0); CREATININE 1.2 mg/dL (0.70-1.30); Calcium 9.7 mg/dL (8.5-10.1); Chloride 104 mmol/L (98-107); Estimated GFR 63.85 (mL/min/1.73m2); Glucose 91 mg/dL (74-106); Potassium 4.1 mmol/L (3.5-5.1); Sodium 139 mmol/L (136-145)
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
[2022-08-07] MEDS: Cholecalciferol (Vitamin D3) 1,000 UNIT TAB 5000 UNITS PO (08:30)
[2022-08-07] MEDS: Isosorbide Mononitrate 30 MG TABCR PO (08:31)
[2022-08-07] MEDS: amLODIPine 10 MG TAB PO (08:31)
[2022-08-07] MEDS: Aspirin 81 MG CHEW PO (08:31)
[2022-08-07] MEDS: Omeprazole 20 MG CAPCR PO (08:31)
[2022-08-07] MEDS: Ezetimibe 10 MG TAB PO (08:31)
[2022-08-07] MEDS: Atorvastatin 40 MG TAB 80 MG PO (08:31)
[2022-08-07] MEDS: Losartan 50 MG TAB 100 MG PO (08:31)
--- NOTE | 2022-08-07 08:48 | PDOC.CMDIS ---
- If Service Date Differs Date of service: 08/07/22 Time of Service: 08:48 LACE Index Scoring Tool - Questions: Length of Stay (in days): 2 Acuity (Admit via E.D.?): Yes Comorbidities: Metastatic Solid Tumor (HX prostate CA) E.D. Visits: 2 - Answers: Total Score: 12 Risk of Readmission: High Risk Care Management Discharge Reason for Hospitalization: Sick sinus syndrome Discharge Plan: Saúl is transferred to [facility] via EMS. Dr. Heard is the accepting physician. Patient/Family Education Needs: Review transfer instructions and discuss ask me three. Services Needed at Discharge: Transportation (EMS/[facility], coordinated by RN Welder Setter Electron Beam Machine)
== END 2022-08-07 08:45 | disposition critical access hospital (66) | DRG 309 ==
LOC: ER 14:51 → ICU 15:58
PROVIDERS: Admitting Provider Internal Medicine; Emergency Provider Physician Assistant; PCP Nurse Practitioner Family; Visit Provider Internal Medicine
DX: I49.5 Sick sinus syndrome (principal); I48.20 Chronic atrial fibrillation, unspecified; R55 Syncope and collapse; I25.10 Atherosclerotic heart disease of native coronary artery without angina pectoris; G47.33 Obstructive sleep apnea (adult) (pediatric); I10 Essential (primary) hypertension; E78.5 Hyperlipidemia, unspecified; M54.16 Radiculopathy, lumbar region; E03.9 Hypothyroidism, unspecified; K21.00 Gastro-esophageal reflux disease with esophagitis, without bleeding; Z85.46 Personal history of malignant neoplasm of prostate; Z86.16 Personal history of COVID-19; Z79.01 Long term (current) use of anticoagulants; Z95.1 Presence of aortocoronary bypass graft
CPT/HCPCS: 36415; 71275; 80048; 80053; 87635; 93005; 93306; 96361; 96365; 96366; 99221; 99291; 71045; 83735; 84439; 84443; 84484; 85025; 93010; 99239; J0131; J3490

== ENCOUNTER 2022-08-14 11:23 | Outpatient (CLI) | payer MEDICARE, SELFPAY ==
--- NOTE | 2022-08-14 14:46 | DI.RAD_ITS ---
Exam(s) XR CERVICAL SPINE COMP 4-5V EXAM: XR CERVICAL SPINE COMP 4-5V CLINICAL HISTORY: recurrent neck pain, M54.2. TECHNIQUE: 2D digital imaging was performed. COMPARISON: CR CERV SP.WITH OBL OR FLEX/EXT from 09/17/2013 FINDINGS: Five views There is no evidence of acute fracture, listhesis, nor offset of the spinal laminar line. Amount of multilevel disc space narrowing is stable when compared to 2013 and again noted be most prominent at the C6-7 level. Mild facet joint degenerative changes. On the oblique views there is small Luschka joint osteophytes. No large Luschka joint osteophytes evident. No osseous lesions. Calcification i n the supraspinous ligament is again noted, unchanged. Cardiac pacemaker noted. IMPRESSION: DATA REPOSITORY: RADIATION DOSE DELIVERED:
== END 2022-08-14 11:43 ==
LOC: DI 11:24
PROVIDERS: PCP Nurse Practitioner Family; Visit Provider Family Medicine
DX: M50.323 Other cervical disc degeneration at C6-C7 level; M47.812 Spondylosis without myelopathy or radiculopathy, cervical region
CPT/HCPCS: 72050

== ENCOUNTER 2022-09-03 09:49 | Inpatient (IN) | payer MEDICARE, SELFPAY ==
[2022-09-03] VITALS (60 sets, daily range): BP systolic 130–162; BP diastolic 69–92; PULSE 59–72; RESP 11–21; TEMP 36.1–36.9; O2SAT 86–99
--- NOTE | 2022-09-03 09:45 | RT.EKG_ITS ---
APPROVED REPORT Exam: Resting ECG Reason for Exam: nausea,vomiting Patient Location: E HR:60 bpm ECG Measurements Heart Rate 60 AXIS WA 172 P [id number] QRSd 103 QRS 46 QT 372 T -36 QTc 372 Conclusion Atrial-paced complexes...other complexes also detected
--- NOTE | 2022-09-03 10:16 | W.ED.GENAD ---
Discharge Plan Disposition Patient Disposition: Admit to [facility] Condition: Stable Discharge Details Chief Complaint: Abd Prob Clinical Impression: Gastritis Primary Care Provider: Jacquelyn Reyes ED Provider: Delano Ni Home Meds and New Rx's Prescriptions: No Action cholecalciferol (vitamin D3) [Vitamin D3] 125 mcg (5,000 unit) tablet 125 mcg PO DAILY losartan 100 mg tablet 100 mg PO DAILY Qty: 90 3RF isosorbide mononitrate 30 mg tablet extended release 24 hr 30 mg PO DAILY Qty: 90 3RF ibuprofen 800 mg tablet 800 mg PO PRN Qty: 60 1RF Rx Instructions: Take one daily if needed. Do not exceed 1 tablet daily. nitroglycerin 0.4 mg tablet, sublingual 0.4 mg Sublingual .COMPLEX MDD 3 tab Qty: 50 2RF Rx Instructions: 0.4 mg Sublingual x 3 prn chest pain. If no relief go to ED ; amlodipine 10 mg tablet 10 mg PO DAILY Qty: 90 3RF Rx Instructions: Take 1 tablet daily atorvastatin 80 mg tablet 80 mg PO DAILY Qty: 90 4RF omeprazole 40 mg capsule,delayed release(DR/EC) 40 mg PO DAILY Qty: 90 3RF ezetimibe [Zetia] 10 mg tablet 10 mg PO DAILY Qty: 90 4RF apixaban 5 mg tablet 5 mg PO BID Qty: 180 3RF aspirin 81 MG tablet,chewable 81 mg PO DAILY Label Comments: States he takes two. Medical Decision Making 71-year-old male presents from home with his . He is approximately 3 weeks status post pacemaker placement for sick sinus syndrome. He has now 4 days of epigastric burning discomfort with associated nausea. He was vomiting this morning. He also notes sometimes dizziness that occurs with moving of his head. Patient does have a history of GERD. He takes intermittent NSAIDs but not daily. No current alcohol use. On arrival he is afebrile with a blood pressure 158/83. His exam reveals tenderness in the epigastrium. Differential diagnosis would include gastritis, dehydration, must exclude occult MT. Will obtain CT given his note of the nausea with vertiginous symptoms. Patient will require chest x-ray to assure that the recently placed pacemaker is in good position. Finally, patient referred for CT imaging of the abdomen with consideration of bowel obstruction, pancreatitis. CT of the head reveals hypodensity in the left cerebellar hemisphere. May represent subtle ischemic change. See the formal report. Chest x-ray unremarkable. Abdomen CT no acute findings, see the formal report. Laboratories reveal white count of 12, hematocrit 44, platelets 226. Chemistries within normal limits. LFTs unremarkable and troponin is negative. Lipase negative. Patient is improving. His abdomen does seem consistent with an exacerbation of GERD/gastritis. Given the vomiting and his worsening nausea with turning of the head in the context of the left cerebellar hypodensity, he will require further work-up for stroke. HPI General Mode of arrival: ambulatory. Date/Time Provider Initiated Documentation: 09/03/22 09:51. Limitations to Documentation: no limitations. Information obtained by: patient and family. History of Present Illness 71 year old M presents to the emergency department with the chief complaint of Approximately 4 days epigastric pain and nausea with vomiting, described as moderate and similar to prior episodes, Quality is described as burning, and is localized to the abdomen. Patient reports radiation to back. Patient started experiencing this day(s) and it has been intermittent. No relieving factors improve symptom(s), No exacerbating factors reported . Patient notes loss of appetite, nausea/vomiting and other (Worse with movement of the head.); denies chest pain, fever/chills, syncope and weakness. Patient did receive the following treatments prior to arrival, none Related Data Home Medications Medication Instructions Recorded Confirmed aspirin 81 mg chewable tablet 81 mg PO DAILY 06/21/13 09/03/22 cholecalciferol (vitamin D3) 125 125 mcg PO DAILY 12/30/19 09/03/22 mcg (5,000 unit) tablet (Vitamin D3) nitroglycerin 0.4 mg sublingual 0.4 mg sublingual .COMPLEX #50 06/20/20 09/03/22 tablet tab-caps amlodipine 10 mg tablet 10 mg PO DAILY #90 tabs 10/15/21 09/03/22 ibuprofen 800 mg tablet 800 mg PO PRN pain #60 tabs 12/27/21 09/03/22 atorvastatin 80 mg tablet 80 mg PO DAILY #90 tabs 12/28/21 09/03/22 omeprazole 40 mg capsule,delayed 40 mg PO DAILY #90 caps 03/15/22 09/03/22 release ezetimibe 10 mg tablet (Zetia) 10 mg PO DAILY #90 tabs 03/27/22 09/03/22 isosorbide mononitrate 30 mg 30 mg PO DAILY #90 tabs 07/15/22 09/03/22 tablet,extended release 24 hr losartan 100 mg tablet 100 mg PO DAILY #90 tabs 07/15/22 09/03/22 apixaban 5 mg tablet 5 mg PO BID #180 tabs 08/07/22 09/03/22 Previous Rx's Medication Instructions Recorded nitroglycerin 0.4 mg sublingual 0.4 mg sublingual .COMPLEX #50 06/20/20 tablet tab-caps amlodipine 10 mg tablet 10 mg PO DAILY #90 tabs 10/15/21 ibuprofen 800 mg tablet 800 mg PO PRN pain #60 tabs 12/27/21 atorvastatin 80 mg tablet 80 mg PO DAILY #90 tabs 12/28/21 omeprazole 40 mg capsule,delayed 40 mg PO DAILY #90 caps 03/15/22 release ezetimibe 10 mg tablet (Zetia) 10 mg PO DAILY #90 tabs 03/27/22 isosorbide mononitrate 30 mg 30 mg PO DAILY #90 tabs 07/15/22 tablet,extended release 24 hr losartan 100 mg tablet 100 mg PO DAILY #90 tabs 07/15/22 apixaban 5 mg tablet 5 mg PO BID #180 tabs 08/07/22 Allergies Allergy/AdvReac Type Severity Reaction Status Date / Time metoprolol AdvReac Severe Bradycardia Verified 08/13/22 14:32 General Stated Complaint: Abd Prob [place]: 3 Review of Systems Narrative: No syncope. Denies chest pain. Pacemaker pocket is healing well approximately 3 weeks status postplacement. C8. 8 systems were reviewed [facility] All Active Problems (Updated 09/03/22 @ 14:15 by Delano Ni MD) Gastritis (Acute) Pacemaker (Acute ~07/2022) Sick sinus syndrome (Chronic ~07/2022) S/p Dual chamber pacemaker Subclinical hypothyroidism (Acute) Coronary artery disease (Chronic) Obstructive sleep apnea (Chronic) PSG 08/2020, on CPAP Atrial fibrillation (Chronic) S/p cardioversion 03/07/21 On eliquis Chronic anticoagulation (Chronic) History of prostate cancer (Chronic ~2015) [place] score 6, s/p radical prostatectomy 2017 Essential hypertension (Chronic) Hyperlipidemia (Chronic) Primary osteoarthritis of left shoulder (Chronic) Lumbar back pain with radiculopathy affecting lower extremity (Chronic) Gastroesophageal reflux disease with esophagitis (Chronic) EGD 2013 Medical History Adenocarcinoma of prostate (~2015) Brian score 6, s/p radical prostatectomy 2017 COVID-19 (~01/10/22) Surgical History H/O umbilical hernia repair History of esophagogastroduodenoscopy (EGD) (04/04/14) 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 Maternal Grandmother No problems noted. Paternal Grandfather No problems noted. Paternal Grandmother No problems noted. Social History Smoking/Tobacco Use Status: Never Smoking risk assessment performed?: Yes Alcohol Intake: current Alcohol Intake frequency: a few times a week Alcohol type: beer Drug use: Never Substance use type: does not use Caregiver/Support person: No Household members: spouse and children Housing: house Communication Needs: None Do you need help understanding health information?: Never Pets and animals: Yes Pets and animals: dog(s) Sexually active: No Do you think of yourself as: straight/heterosexual Current gender identity: male What is your relationship status?: How often do you talk on the phone with friends or family?: decline to answer How often do you get together with friends or relatives?: decline to answer How often do you attend sabianism or mandaen services?: decline to answer Do you belong to any clubs or organized social groups?: decline to answer Panel score (0-1 are the most socially isolated patients): 1 What type of physical activity do you participate in: walking Duration: 45-60 minutes/day Frequency: daily [place]/Orthodoxy: None Special sydney needs: No Seatbelt use: always Drive intox 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 Pleasant, well groomed, interactive. HEAD: Normocephalic, atraumatic ENT: Mucous membranes moist, oropharynx unremarkable, External ear exam unremarkable EYES: PERRL, EOMI NECK: Full ROM, no LESTER, no menigismus CHEST/RESP: Nontender, scant dependent rales present bilaterally CARDIOVASCULAR: RRR, no murmur, rub erik. 2+ Rad pulse bilateral ABDOMEN: Soft, tender in the epigastrium and left abdomen, no mass. +Bowel sounds EXT: Full ROM, no edema, no rash Neuro: Grossly normal neurologic exam, conversant, interactive. Psych: Speech fluent, thoughts congruent, affect normal Course Vital Signs Vital signs: Vital Signs Temperature 36.4 C L 09/03/22 09:55 Pulse 72 09/03/22 09:55 Respiratory Rate 15 09/03/22 09:55 Blood Pressure 158/83 H 09/03/22 09:55 Pulse Oximetry 97 09/03/22 09:55 Temperature 36.4 C L 09/03/22 09:55 Temperature Source Temporal Artery Scan 09/03/22 09:55 Pulse 72 09/03/22 09:55 Respiratory Rate 15 09/03/22 09:55 Respiratory Effort 09/03/22 09:59 Blood Pressure 158/83 H 09/03/22 09:55 Blood Pressure Position Sitting 09/03/22 09:55 Pulse Oximetry 97 09/03/22 09:55 Oxygen Delivery Method Room Air 09/03/22 09:55 Oxygen Flow Rate 0 09/03/22 09:55 Pain Level 10 09/03/22 10:00
[2022-09-03] MEDS: Pantoprazole 40 MG VIAL IVP (10:52)
[2022-09-03] MEDS: Ondansetron 4 MG/2 ML VIAL IVP (10:52)
[2022-09-03] MEDS: HYDROmorphone 2 MG/ML SYR 0.5 MG IVP (10:52)
[2022-09-03 10:53] LABS: Abs Immature Grans 0.06 10^3/uL (0.0-0.06); Absolute Basophil Count 0.05 10^3/uL (0.0-0.2); Absolute Eosinophil Count 0.06 10^3/uL (0.0-0.7); Absolute Lymphocyte Count 1.39 10^3/uL (1.2-3.4); Basophils % 0.4; Eosinophils % 0.5; HCT 44.3 % (40.0-50.0); HGB 14.9 g/dL (13.5-17.5); Immature Grans % 0.5; Lymphocytes % 10.8; MCHC 33.6 % (32.0-36.0); MCV 89 fL (80-95); MPV 9.6 fL (8.0-11.0); Monocytes % 3.9; Neutrophils % 83.9; Platelet Count 226 10^3/uL (130-400); RBC 4.97 10^6/uL (4.36-5.78); RDW 12.2 % (11.8-14.1); RDW-SD 39.8 fL; WBC 12.87 10^3/uL (4.4-10.8)
[2022-09-03] MEDS: Normal Saline 1,000 ML 125 ML IV ×2 (10:53→18:50)
[2022-09-03 11:25] LABS: ALT 27 U/L (16-63); AST 19 U/L (15-37); Albumin 3.6 g/dL (3.4-5.0); Alkaline Phosphatase 69 U/L (46-116); Anion Gap 7.6 mmol/L (3-11); BUN 16 mg/dL (7-18); Bilirubin, Total 0.5 mg/dL (0.2-1.0); CO2 26.4 mmol/L (21.0-32.0); CREATININE 1.1 mg/dL (0.70-1.30); Calcium 9.9 mg/dL (8.5-10.1); Chloride 105 mmol/L (98-107); Estimated GFR 70.88 (mL/min/1.73m2); Glucose 148 mg/dL (74-106); Lipase 37 U/L (16-77); Magnesium 1.9 mg/dL (1.8-2.4); Potassium 3.9 mmol/L (3.5-5.1); Sodium 139 mmol/L (136-145); Troponin I < 50 ng/L (<or=60)
--- NOTE | 2022-09-03 11:30 | DI.CT_ITS ---
Exam(s) CT ABDOMEN PELVIS W EXAM: CT ABDOMEN PELVIS W CLINICAL HISTORY: upper abd pain, vomiting. TECHNIQUE: Imaging Protocol: Axial computed tomography images with coronal and sagittal reformatted images were created and reviewed CONTRAST MATERIAL: Intravenous: Omnipaque-350 100cc Oral: None COMPARISON: CT CT CHEST PE CTA from 08/05/2022 FINDINGS: VISUALIZED LUNG BASES: No nodules nor pleural effusions evident. Sternotomy wires and pacemaker wire s noted. ABDOMEN: There is no ascites. LIVER: There are no focal hepatic lesions evident. No dilated intrahepatic ducts. GALLBLADDER/BILIARY: Gallbladder surgically absent. CBD is not dilated. PANCREAS: No evidence of pancreatic mass nor dilatation of the pancreatic duct. SPLEEN: Spleen is not enlarged. No obvious intrasplenic lesions. Splenic and portal veins are paten t. ADRENALS: There are no significant adrenal masses. KIDNEYS:No cysts evident. No solid renal masses. No calculi nor hydronephrosis.. ABDOMINAL AORTA: Abdominal aorta is not enlarged. LYMPH NODES:There is no retroperitoneal nor paraaortic adenopathy. ABDOMINAL WALL: No evidence of significant anterior abdominal wall nor inguinal hernia. GI: There is no evidence of bowel obstruction, free air, nor abscess. PELVIS: GI: No evidence of appendicitis.No evidence of sigmoid diverticulitis. LYMPH NODES: There is no intrapelvic nor inguinal adenopathy. REPRODUCTIVE: Prostate is tiny are surgically absent. There are no clips in this region. No obturat or adenopathy. No intrapelvic nor inguinal adenopathy. URINARY BLADDER: Small. No obvious abnormality realized limitations due to bladder not filled. OSSEOUS: No fractures and no significant osseous lesions. No chronic degenerative disc disease. IMPRESSION: 1. The gallbladder surgically absent. No significant dilatation of the biliary tree. 2. Prostate appears to be surgically absent although there are no clips in this region. There is no obturator adenopathy nor intrapelvic adenopathy. 3. The bladder is mostly empty and difficult to assess accurately on this study Called by myself to ER physician RADIATION DOSE DELIVERED: 1,068.03mGy.cm Total DLP DATA REPOSITORY: All CT scans at this facility are submitted to the National Radiology Data Registry (NRDR) Dose Index Registry (DIR) with the [employer] ([employer]). RADIATION OPTIMIZATION: All CT scans at this facility use at least one of these dose optimization te chniques: automated exposure control; mA and/or kV adjustment per patient size (includes targeted exa ms where dose is matched to clinical indication); or iterative reconstruction.
--- NOTE | 2022-09-03 11:30 | DI.CT_ITS ---
Exam(s) CT HEAD WO EXAM: CT HEAD WO CLINICAL HISTORY: dizzy, nauseated. TECHNIQUE: Imaging Protocol: Axial computed tomography images with coronal and sagittal reformatted images were created and reviewed COMPARISON: CT CT HEAD CERVICAL SPINE WO from 08/24/[address] HEAD CERVICAL SPINE WO from 08/30/2021 FINDINGS: There are no skull fractures. There is no fluid in the visualized paranasal sinuses. There is no evidence of intracranial hemorrhage, mass effect, or shift of midline structures. There are no extra-axial fluid collections. The ventricles are not enlarged or shifted and there is no blo od within the ventricular system nor within the basal cisterns. Calcification in the right-side of the quadrigeminal cistern is unchanged from prior studies listed a beto. Osseous significant is an area of subtle hypodensity in the left cerebellar hemisphere, more so than previous. Possibly representing ischemic change. IMPRESSION: Subtle area of hypodensity in the left cerebellar hemisphere. This may represent subtle ischemic sarah nge. Follow-up MRI with diffusion imaging recommended. RADIATION DOSE DELIVERED: 841.66mGy.cm Total DLP DATA REPOSITORY: All CT scans at this facility are submitted to the National Radiology Data Registry (NRDR) Dose Index Registry (DIR) with the [employer] (ACR). RADIATION OPTIMIZATION: All CT scans at this facility use at least one of these dose optimization te chniques: automated exposure control; mA and/or kV adjustment per patient size (includes targeted exa ms where dose is matched to clinical indication); or iterative reconstruction.
[2022-09-03] MEDS: Normal Saline Flush 10 ML SYR IVP ×2 (12:23→18:50)
--- NOTE | 2022-09-03 13:50 | DI.RAD_ITS ---
Exam(s) XR CHEST 2V PA LATERAL EXAM: XR CHEST 2V PA LATERAL CLINICAL HISTORY: recent pacer placement, nauseated. TECHNIQUE: 2D digital imaging was performed. COMPARISON: CR XR PORTABLE CHEST AP from 08/05/2022 FINDINGS: 2 views: Again nor sternotomy wires and bipolar left subclavian pacemaker with lead tips in right atrium and R V. Heart size is normal. The mediastinum is not widened. Lungs are clear. No infiltrates nor pleural effusions. No evidence of pulmonary edema. No pneumothorax. IMPRESSION: No acute pulmonary findings. Cardiac pacemaker. Sternotomy. No pulmonary edema. DATA REPOSITORY: RADIATION DOSE DELIVERED:
[2022-09-03] MEDS: HYDROmorphone 2 MG/ML SYR 1 MG IVP (13:57)
[2022-09-03 15:32] LABS: Source Nasal/Nares
[2022-09-03 16:07] LABS: COVID-19 PCR Negative (Negative)
--- NOTE | 2022-09-03 17:09 | W.NEUROCONSU ---
Date of service: 09/03/22 Time of Service: 17:09 Assessment and Plan Assessment and plan (1) Abnormal CT of brain: Status: Acute Assessment and plan: Difficult story to understand but neurologically the concern was this ?abnormality on CTH imaging - ddx including stroke, mass, etc. He is unable to undergo MRI brain imaging due to PM placement. His exam is not consistent with a cerebellar deficit at this time. His history is muddied but also atypical of an acute stroke; further he is already on aspirin and apixaban..... It seems like the majority of his symptoms are chronic and maybe related to poorly controlled GERD +/- migraine +/- other. He also has a ?vestibular component though no nystagmus on exam. Thus, nothing is really clear. Given uncertainties, would recommend the following: -concern for stroke: get CTA head/neck given neck pain - ?dissection. Repeat CT head on 09/04/22 to look for evolving infarct/changes. Check anti-Xa ab (already drawn). Continue aspirin and apixaban. -?vestibular component: recommend PT with vestibular evaluation/[place]-Hallpike, etc. -Nausea/emesis: will defer to primary team. I will continue to follow. History of Present Illness History of Present Illness Chief Complaint: abnormal CTH Narrative: Handedness: right. HPI: Mr. Virk is a 71 year-old with hypertension, hyperlipidemia, paroxysmal atrial fibrillation, atherosclerotic heart disease, sick sinus syndrome s/p bradycardia, WINIFRED, prostate cancer, and GERD. Mr. Virk presented to the ER this am after protracted emesis that self-resolved after arrival. It's difficult to understand the exact history, but it appears that he has been having episodic nausea a/w intermittent emesis, disphoresis, and ?vertigo for at least one month if not longer. He notes that symptoms definitely started prior to 08/07/22 at which time he was transferred to [facility] for pacemaker placement. He notes relief from symptoms 2 days following his PM placement, but then subsequent return. He describes sudden sensations of nausea with the above a/w symptoms that occurs most frequently in the mornings. He notes that if he sleeps too long in the morning he will wake up vomiting. He sleeps supine on his right side and has not tried sleeping with his head elevated. He is on a PPI. However, he also notes that his nausea/emesis can be preceded by neck discomfort as well as a sensation that his neck is swollen or full even though it is not. He also describes onset of symptoms with head movements or rolling over in bed, but I am not clear how often this is occurring. He later stated only when turning his head to the left will he get a full sensation in his neck and didn't relate it to his nausea at all.....He also mentioned that in he would have checkers in his vision ?associated with nausea? I am not sure even after asking clarifying questions and unsure how long ago this was. He mentioned falling 2 years ago and hitting the back of his head. He notes that at that time he was having similar nausea/emesis. He denies any changes in balance or coordination. He is on aspirin 81mg daily and apixaban 5mg BID and reports compliance with both. Work-up in the ER was significant for ?hypodensity in the L cerebellum. BP has been 130-160s which seems to be his normal range. Work-up: -[facility] (09/03/22): ?L cerebellum hypodensity. I reviewed these images personally and this is my personal interpretation. -Labs (09/03/22): WBC 12.89, Na 139, Cr 1.1 Review of Systems All systems reviewed & are unremarkable except as noted in HPI and below PFSH All Active Problems (Updated 09/03/22 @ 20:32 by Larissa Deshpande MD) Abnormal CT of brain (Acute) Gastritis (Acute) Pacemaker (Acute ~07/2022) Sick sinus syndrome (Chronic ~07/2022) S/p Dual chamber pacemaker Subclinical hypothyroidism (Acute) Coronary artery disease (Chronic) Obstructive sleep apnea (Chronic) PSG 08/2020, on CPAP Atrial fibrillation (Chronic) S/p cardioversion 03/07/21 On eliquis Chronic anticoagulation (Chronic) History of prostate cancer (Chronic ~2015) Melrose score 6, s/p radical prostatectomy 2017 Essential hypertension (Chronic) Hyperlipidemia (Chronic) Primary osteoarthritis of left shoulder (Chronic) Lumbar back pain with radiculopathy affecting lower extremity (Chronic) Gastroesophageal reflux disease with esophagitis (Chronic) EGD 2013 Medical History Adenocarcinoma of prostate (~2015) Brian score 6, s/p radical prostatectomy 2017 COVID-19 (~01/10/22) Surgical History H/O umbilical hernia repair History of esophagogastroduodenoscopy (EGD) (04/04/14) 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 Maternal Grandmother No problems noted. Paternal Grandfather No problems noted. Paternal Grandmother No problems noted. Social History Smoking/Tobacco Use Status: Never Smoking risk assessment performed?: Yes Alcohol Intake: current Alcohol Intake frequency: a few times a week Alcohol type: beer Drug use: Never Substance use type: does not use Caregiver/Support person: No Household members: spouse and children Housing: house Communication Needs: None Do you need help understanding health information?: Never Pets and animals: Yes Pets and animals: dog(s) Sexually active: No Do you think of yourself as: straight/heterosexual Current gender identity: male What is your relationship status?: How often do you talk on the phone with friends or family?: decline to answer How often do you get together with friends or relatives?: decline to answer How often do you attend baptist or spiritism services?: decline to answer Do you belong to any clubs or organized social groups?: decline to answer Panel score (0-1 are the most socially isolated patients): 1 What type of physical activity do you participate in: walking Duration: 45-60 minutes/day Frequency: daily [place]/Mu-Ism: None Special sydney needs: No Seatbelt use: always Drive intox 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 passenger coach driver: No Do you feel safe at home: Yes Do you feel safe in your relationship?: Yes Visit Medication and Allergies Active Medications Generic Name Dose Route Start Last Admin Trade Name Freq PRN Reason Stop Dose Admin Amlodipine Besylate 10 mg 09/04/22 08:30 Amlodipine 10 Mg Tab PO DAILY [facility] Apixaban 5 mg 09/03/22 20:00 Apixaban 5 Mg Tab PO BID [facility] Aspirin 81 mg 09/04/22 08:30 Aspirin 81 Mg Chew PO DAILY [facility] Atorvastatin Calcium 80 mg 09/04/22 20:00 Atorvastatin 40 Mg Tab PO QPM [facility] Cholecalciferol 5,000 units 09/04/22 08:30 Cholecalciferol (Vitamin D3) 1,000 Unit Tab PO DAILY [facility] Dimethicone/Zinc Oxide 0 gm 09/03/22 14:54 Odin Protect Cream 142 Gm Tube TP PRN PRN Docusate Sodium 100 mg 09/03/22 15:05 Docusate Sodium 100 Mg Cap PO TID PRN PRN Ezetimibe 10 mg 09/04/22 08:30 Ezetimibe 10 Mg Tab PO DAILY [facility] Sodium Chloride 1,000 mls @ 125 mls/hr 09/03/22 10:15 09/03/22 12:23 Saline 1000ml Bag IV Infused INFUSION [facility] Infusion IV Miscellaneous Supplies 1 each 09/03/22 10:15 Iv Access IV DIRECTED [facility] Isosorbide Mononitrate 30 mg 09/04/22 08:30 Isosorbide Mononitrate 30 Mg Tabcr PO DAILY [facility] Losartan Potassium 100 mg 09/04/22 08:30 Losartan 50 Mg Tab PO DAILY [facility] Magnesium Hydroxide 30 ml 09/03/22 15:05 Milk Of Magnesia 30 Ml Cup PO DAILY PRN PRN Omeprazole 40 mg 09/04/22 07:30 Omeprazole 20 Mg Capcr PO DAILY@0730 [facility] Polyethylene Glycol 17 gm 09/03/22 15:05 Polyethylene Glycol 3350 17 Gm Packet PO DAILY PRN PRN Constipation Sodium Chloride 0 ml 09/03/22 10:14 09/03/22 12:23 Normal Saline Flush 10 Ml Syr IVP 10 ml PRN PRN Administration Allergies metoprolol Adverse Reaction (Severe, Verified 08/13/22 14:32) Bradycardia Exam Narrative Exam Narrative: Physical Exam: Gen: Patient of apparent stated age, NAD Head and face: no facial or cranial abnormalities Neck: Supple, no meningismus, no occipital tenderness CV: + S1, S2, RRR, no murmur Resp: CTA B/L Abd: soft, nontender, nondistended Ext: No edema. No clubbing or cyanosis. No bony deformity. Neuro Exam: Language: fluency, naming, repetition, and comprehension intact; Mental Status: AAOx3, current events intact, fund of knowledge intact; Speech: no dysarthria Cranial nerves: Funduscopy: not performed CN II: visual bustillo intact CN III, IV, : extraocular movements intact, no nystagmus, pupils symmetric and reactive to light CN V: face sensation intact to LT; reduced PP and vibration in L V1 CN VII: no facial asymmetry noted CN VIII: hearing intact bilaterally CN IX, X: palate rises symmetrically CN XI: trapezius/SCM 5/5 bilaterally CN XII: protrudes tongue symmetrically Sensory: intact to LT, PP, vibration, and joint position in all extremities Motor: bulk and tone intact. Fine motor movements intact bilaterally. No pronator drift. Strength 5/5 throughout including the deltoids, biceps, triceps, wrist extensors, hip flexors, knee flexors, knee extensors, ankle flexors, and ankle extensors. Reflexes: hyporeflexic throughout at the biceps, triceps, brachioradialis, patella, and achilles tendons bilaterally; toes down going bilaterally; Coordination: FTN and HTS intact bilaterally Gait: not tested Results Last Vital Signs Temp 98.1 F 09/03/22 13:48 Pulse 59 L 09/03/22 16:16 Resp 11 L 09/03/22 16:16 BP 133/78 09/03/22 16:16 Pulse Ox 95 09/03/22 16:16 Labs Result diagrams: 09/03/22 10:44 09/03/22 11:00 Labs: Laboratory Results - last 24 hr 09/03/22 09/03/22 09/03/22 10:44 10:44 10:44 WBC 12.87 H RBC 4.97 Hgb 14.9 Hct 44.3 MCV 89 MCH 30.0 MCHC 33.6 RDW 12.2 Plt Count 226 MPV 9.6 Immature Gran % 0.5 Neutrophils % 83.9 Lymphocytes % 10.8 Monocytes % 3.9 Eosinophils % 0.5 Basophils % 0.4 Nucleated RBC % 0.0 Absolute Neutrophils 10.80 H Absolute Lymphocytes 1.39 Absolute Monocytes 0.50 Absolute Eosinophils 0.06 Absolute Basophils 0.05 Sodium Cancelled Cancelled Potassium Cancelled Cancelled Chloride Cancelled Cancelled Carbon Dioxide Cancelled Cancelled Anion Gap Cancelled Cancelled BUN Cancelled Cancelled Creatinine Cancelled Cancelled Est GFR (CKD-EPI 2020) Cancelled Cancelled Glucose Cancelled Cancelled Calcium Cancelled Cancelled Magnesium Cancelled Total Bilirubin Cancelled Cancelled AST Cancelled Cancelled ALT Cancelled Cancelled Alkaline Phosphatase Cancelled Cancelled Troponin I Cancelled Total Protein Cancelled Cancelled Albumin Cancelled Cancelled Lipase Cancelled COVID-19 Source SARS-CoV-2 (PCR) 09/03/22 09/03/22 11:00 15:25 WBC RBC Hgb Hct MCV MCH MCHC RDW Plt Count MPV Immature Gran % Neutrophils % Lymphocytes % Monocytes % Eosinophils % Basophils % Nucleated RBC % Absolute Neutrophils Absolute Lymphocytes Absolute Monocytes Absolute Eosinophils Absolute Basophils Sodium 139 Potassium 3.9 Chloride 105 Carbon Dioxide 26.4 Anion Gap 7.6 BUN 16 Creatinine 1.1 Est GFR (CKD-EPI 2020) 70.88 Glucose 148 H Calcium 9.9 Magnesium 1.9 Total Bilirubin 0.5 AST 19 ALT 27 Alkaline Phosphatase 69 Troponin I < 50 Total Protein 7.0 Albumin 3.6 Lipase 37 COVID-19 Source Nasal/Nares SARS-CoV-2 (PCR) Negative
--- NOTE | 2022-09-03 19:08 | HPE_ITS ---
Date of service: 09/03/22 Time of Service: 17:00 Assessment and Plan Assessment and plan (1) Dizziness: Status: Acute Assessment and plan: Dizzy when he turns his head, c/o neck pain - posterior always points to right side - no trauma Ketorelac for pain and heating pad Telemetry Neuro consult (2) Atrial fibrillation: Status: Chronic Assessment and plan: Stable; Tele Continue Apixaban Echo: Conclusion Normal left ventricular wall thickness and chamber size.? Estimated ejection fraction is 55%.? No segmental wall motion abnormalities are identified Right ventricle is mildly to moderately dilated Left atrium is mildly dilated.? Right atrial size is normal Aortic valve is trileaflet and mildly sclerotic with mild regurgitation Mild mitral annular calcification.? Mild mitral regurgitation Normal tricuspid valve with trace regurgitation.? Right ventricular systolic pressure could not be estimated Dilated ascending aorta measuring 4.15 cm (3) Coronary artery disease: Status: Chronic Assessment and plan: Continue home therapy (4) Obstructive sleep apnea: Status: Chronic Assessment and plan: Ok to use home CPAP (5) Essential hypertension: Status: Chronic Assessment and plan: Stable continue Amlodipine, Losartan (6) Hyperlipidemia: Status: Chronic Assessment and plan: Stable continue Atorvastatin & Zetia (7) DVT prophylaxis: Status: Acute Assessment and plan: continue Apixaban (8) Discharge planning issues: Status: Acute Assessment and plan: Neuro consult Discharge home when stable Discussed with Dr Richardson History of Present Illness Narrative: This is an 81-year-old male [facility] of Approximately 4 days epigastric pain and nausea with vomiting,?described as moderate and similar to prior episodes,?Quality is described as burning,?and is localized to the abdomen.?Patient reports radiation to back. No relieving factors improve symptom(s),?No exacerbating factors reported .?Patient notes loss of appetite, nausea/vomiting and other (Worse with movement of the head.); denies chest pain, fever/chills, syncope and weakness.? CT of the head reveals hypodensity in the left cerebellar hemisphere.? May represent subtle ischemic change.? See the formal report.? Chest x-ray unremarkable.? Abdomen CT no acute findings, see the formal report.? Laboratories reveal white count of 12, hematocrit 44, platelets 226.? Chemistries within normal limits.? LFTs unremarkable and troponin is negative.? Lipase negative.? Patient is improving.? His abdomen does seem consistent with an exacerbation of GERD/gastritis.? Given the vomiting and his worsening nausea with turning of the head in the context of the left cerebellar hypodensity, he will require further work-up for stroke. Discussed with Dr Richardson Review of Systems All systems reviewed & are unremarkable except as noted in HPI and below PFSH All Active Problems (Updated 09/04/22 @ 12:49 by Jia Garrido NP) Dizziness (Acute) CHF (congestive heart failure) (Chronic) DVT prophylaxis (Acute) Discharge planning issues (Acute) Coronary artery disease (Chronic) Obstructive sleep apnea (Chronic) PSG 08/2020, on CPAP Atrial fibrillation (Chronic) S/p cardioversion 03/07/21 On eliquis Essential hypertension (Chronic) Hyperlipidemia (Chronic) Gastroesophageal reflux disease with esophagitis (Chronic) EGD 2013 Medical History (Updated 09/04/22 @ 12:49 by Jia Garrido NP) Abnormal CT of brain Adenocarcinoma of prostate (~2015) Brian score 6, s/p radical prostatectomy 2017 Chronic anticoagulation COVID-19 (~01/10/22) Gastritis History of prostate cancer (~2015) Randolph score 6, s/p radical prostatectomy 2017 Lumbar back pain with radiculopathy affecting lower extremity Pacemaker (~07/2022) Primary osteoarthritis of left shoulder Sick sinus syndrome (~07/2022) S/p Dual chamber pacemaker Subclinical hypothyroidism Surgical History H/O umbilical hernia repair History of esophagogastroduodenoscopy (EGD) (04/04/14) 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 Maternal Grandmother No problems noted. Paternal Grandfather No problems noted. Paternal Grandmother No problems noted. Social History Smoking/Tobacco Use Status: Never Smoking risk assessment performed?: Yes Alcohol Intake: current Alcohol Intake frequency: a few times a week Alcohol type: beer Drug use: Never Substance use type: does not use Caregiver/Support person: No Household members: spouse and children Housing: house Communication Needs: None Do you need help understanding health information?: Never Pets and animals: Yes Pets and animals: dog(s) Sexually active: No Do you think of yourself as: straight/heterosexual Current gender identity: male What is your relationship status?: How often do you talk on the phone with friends or family?: decline to answer How often do you get together with friends or relatives?: decline to answer How often do you attend yazidi or episcopal services?: decline to answer Do you belong to any clubs or organized social groups?: decline to answer Panel score (0-1 are the most socially isolated patients): 1 What type of physical activity do you participate in: walking Duration: 45-60 minutes/day Frequency: daily [place]/Oriental Orthodox: None Special syd[place] needs: No Seatbelt use: always Drive intox 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 dedicated regional driver: No Do you feel safe at home: Yes Do you feel safe in your relationship?: Yes Meds Allergies and Home Medications Allergies Allergy/AdvReac Type Severity Reaction Status Date / Time metoprolol AdvReac Severe Bradycardia Verified 08/13/22 14:32 Home Medications Medication Instructions Recorded Confirmed Type aspirin 81 mg chewable tablet 81 mg PO DAILY 06/21/13 09/03/22 History cholecalciferol (vitamin D3) 125 125 mcg PO DAILY 12/30/19 09/03/22 History mcg (5,000 unit) tablet (Vitamin D3) nitroglycerin 0.4 mg sublingual 0.4 mg sublingual .COMPLEX #50 06/20/20 09/03/22 Rx tablet tab-caps amlodipine 10 mg tablet 10 mg PO DAILY #90 tabs 10/15/21 09/03/22 Rx ibuprofen 800 mg tablet 800 mg PO PRN pain #60 tabs 12/27/21 09/03/22 Rx atorvastatin 80 mg tablet 80 mg PO DAILY #90 tabs 12/28/21 09/03/22 Rx omeprazole 40 mg capsule,delayed 40 mg PO DAILY #90 caps 03/15/22 09/03/22 Rx release ezetimibe 10 mg tablet (Zetia) 10 mg PO DAILY #90 tabs 03/27/22 09/03/22 Rx isosorbide mononitrate 30 mg 30 mg PO DAILY #90 tabs 07/15/22 09/03/22 Rx tablet,extended release 24 hr losartan 100 mg tablet 100 mg PO DAILY #90 tabs 07/15/22 09/03/22 Rx apixaban 5 mg tablet 5 mg PO BID #180 tabs 08/07/22 09/03/22 Rx Exam Narrative Exam Narrative: GEN: awake, alert, oriented 3. Pleasant, well groomed, interactive. HEAD: Normocephalic, atraumatic ENT: Mucous membranes moist, oropharynx unremarkable, External ear exam unremarkable EYES: PERRL, EOMI NECK: Full ROM, no LESTER, no menigismus CHEST/RESP: Nontender, scant dependent rales present bilaterally CARDIOVASCULAR: RRR, no murmur, rub erik. 2+ Rad pulse bilateral ABDOMEN: Soft, tender in the epigastrium and left abdomen, no mass. +Bowel sounds EXT: Full ROM, no edema, no rash Neuro: Grossly normal neurologic exam, conversant, interactive. Psych: Speech fluent, thoughts congruent, affect normal Results Labs Result diagrams: 09/04/22 05:50 09/04/22 05:50 Labs: Laboratory Results - last 24 hr 09/03/22 09/03/22 09/03/22 10:44 10:44 10:44 WBC 12.87 H RBC 4.97 Hgb 14.9 Hct 44.3 MCV 89 MCH 30.0 MCHC 33.6 RDW 12.2 Plt Count 226 MPV 9.6 Immature Gran % 0.5 Neutrophils % 83.9 Lymphocytes % 10.8 Monocytes % 3.9 Eosinophils % 0.5 Basophils % 0.4 Nucleated RBC % 0.0 Absolute Neutrophils 10.80 H Absolute Lymphocytes 1.39 Absolute Monocytes 0.50 Absolute Eosinophils 0.06 Absolute Basophils 0.05 Sodium Cancelled Cancelled Potassium Cancelled Cancelled Chloride Cancelled Cancelled Carbon Dioxide Cancelled Cancelled Anion Gap Cancelled Cancelled BUN Cancelled Cancelled Creatinine Cancelled Cancelled Est GFR (CKD-EPI 2021) Cancelled Cancelled Glucose Cancelled Cancelled Calcium Cancelled Cancelled Magnesium Cancelled Total Bilirubin Cancelled Cancelled AST Cancelled Cancelled ALT Cancelled Cancelled Alkaline Phosphatase Cancelled Cancelled Troponin I Cancelled Total Protein Cancelled Cancelled Albumin Cancelled Cancelled Lipase Cancelled COVID-19 Source SARS-CoV-2 (PCR) 09/03/22 09/03/22 11:00 15:25 WBC RBC Hgb Hct MCV MCH MCHC RDW Plt Count MPV Immature Gran % Neutrophils % Lymphocytes % Monocytes % Eosinophils % Basophils % Nucleated RBC % Absolute Neutrophils Absolute Lymphocytes Absolute Monocytes Absolute Eosinophils Absolute Basophils Sodium 139 Potassium 3.9 Chloride 105 Carbon Dioxide 26.4 Anion Gap 7.6 BUN 16 Creatinine 1.1 Est GFR (CKD-EPI 2020) 70.88 Glucose 148 H Calcium 9.9 Magnesium 1.9 Total Bilirubin 0.5 AST 19 ALT 27 Alkaline Phosphatase 69 Troponin I < 50 Total Protein 7.0 Albumin 3.6 Lipase 37 COVID-19 Source Nasal/Nares SARS-CoV-2 (PCR) Negative Last Vital Signs Temp 36.1 C L 09/03/22 16:49 Pulse 61 09/03/22 17:20 Resp 16 09/03/22 16:49 BP 160/78 H 09/03/22 16:49 Pulse Ox 98 09/03/22 16:49 Time Spent Time spent with Patient: 40-54 minutes Time was spent: preparing to see the patient(eg.review tests), obtaining and/or reviewing separately otained hiistory, ordering medications,tests, procedures, referring, communicating with other health livestock caretaker, indepentently interpreting results, counseling the patient and care coordination
[2022-09-03] MEDS: Apixaban 5 MG TAB PO (19:50)
[2022-09-03] MEDS: Pantoprazole 40 MG TABCR PO (19:50)
[2022-09-03 21:18] LABS: Bilirubin Negative (Negative); Blood Negative (Negative); Clarity Clear (Clear); Glucose Negative (Negative); Ketones Negative (Negative); Leukocyte Esterase Negative (Negative); Nitrite Negative (Negative); Urobilinogen 0.2 EU/dL (Up TO 0.2); pH 6.5 (5-8)
[2022-09-03] MEDS: Sucralfate 1 GM TAB PO (21:27)
[2022-09-03] MEDS: Prochlorperazine 10 MG/2 ML VIAL 5 MG IVP (21:27)
[2022-09-04] VITALS (7 sets, daily range): BP systolic 127–145; BP diastolic 66–75; PULSE 60–66; RESP 16; TEMP 36.7–37.1; O2SAT 94–99
[2022-09-04] MEDS: Normal Saline 1,000 ML 125 ML IV (02:30)
[2022-09-04 06:05] LABS: Abs Immature Grans 0.01 10^3/uL (0.0-0.06); Absolute Basophil Count 0.03 10^3/uL (0.0-0.2); Absolute Eosinophil Count 0.12 10^3/uL (0.0-0.7); Absolute Lymphocyte Count 1.99 10^3/uL (1.2-3.4); Absolute Monocyte Count 0.44 10^3/uL (0.1-0.8); Absolute Neutrophil Count 4.33 10^3/uL (1.2-6.7); Basophils % 0.4; Eosinophils % 1.7; HCT 41.7 % (40.0-50.0); HGB 13.8 g/dL (13.5-17.5); Immature Grans % 0.1; Lymphocytes % 28.8; MCH 29.2 pg (27.0-33.0); MCHC 33.1 % (32.0-36.0); MCV 88 fL (80-95); MPV 9.4 fL (8.0-11.0); Monocytes % 6.4; Neutrophils % 62.6; Platelet Count 212 10^3/uL (130-400); RBC 4.73 10^6/uL (4.36-5.78); RDW 12.2 % (11.8-14.1); RDW-SD 39.4 fL; WBC 6.92 10^3/uL (4.4-10.8)
[2022-09-04 06:18] LABS: Anion Gap 6.3 mmol/L (3-11); BUN 14 mg/dL (7-18); CO2 26.7 mmol/L (21.0-32.0); Calcium 9.4 mg/dL (8.5-10.1); Chloride 108 mmol/L (98-107); Estimated GFR 79.47 (mL/min/1.73m2); Glucose 93 mg/dL (74-106); Potassium 4.1 mmol/L (3.5-5.1); Sodium 141 mmol/L (136-145)
[2022-09-04] MEDS: Normal Saline Flush 10 ML SYR IVP ×5 (08:01→13:56)
[2022-09-04] MEDS: Isosorbide Mononitrate 30 MG TABCR PO (08:02)
[2022-09-04] MEDS: amLODIPine 10 MG TAB PO (08:02)
[2022-09-04] MEDS: Apixaban 5 MG TAB PO (08:02)
[2022-09-04] MEDS: Sucralfate 1 GM TAB PO ×3 (08:02→16:06)
[2022-09-04] MEDS: Pantoprazole 40 MG TABCR PO (08:02)
[2022-09-04] MEDS: Cholecalciferol (Vitamin D3) 1,000 UNIT TAB 5000 UNITS PO (08:02)
[2022-09-04] MEDS: Losartan 50 MG TAB 100 MG PO (08:03)
[2022-09-04] MEDS: Aspirin 81 MG CHEW PO (08:03)
[2022-09-04] MEDS: Ezetimibe 10 MG TAB PO (08:03)
--- NOTE | 2022-09-04 09:45 | INITIAL_ITS ---
- If Service Date Differs Date of service: 09/04/22 Time of Service: 09:45 Care Management Initial Assess REASON FOR HOSPITALIZATION:: Cerebellar Stroke PAST MEDICAL HISTORY/PAST SURGICAL HISTORY:: All Active Problems (Updated 09/03/22 @ 14:15 by Delano Ni MD). Gastritis (Acute). Pacemaker (Acute ~07/2022). Sick sinus syndrome (Chronic ~07/2022). S/p Dual chamber pacemaker. Subclinical hypothyroidism (Acute). Coronary artery disease (Chron ic). Obstructive sleep apnea (Chronic). PSG 08/2020, on CPAP. Atrial fibrillation (Chronic). S/p cardioversion 03/07/21. On eliquis. Chronic anticoagulation (Chronic). History of prostate cancer (Chronic ~2015). Fairfield score 6, s/p radical prostatectomy 2017. Essential hypertension (Chronic). Hyperlipidemia (Chronic). Primary osteoarthritis of left shoulder (Chronic). Lumbar back pain with radiculopathy affecting lower extremity (Chronic). Gastroesophageal reflux disease with esophagitis (Chronic). EGD 2013. Medical History . Adenocarcinoma of prostate (~2015). Fairfield score 6, s/p radical prostatectomy 2017. COVID-19 (~01/10/22). Surgical History . H/O umbilical hernia repair. History of esophagogastroduodenoscopy (EGD) (04/04/14). S/P CABG x 2 (04/14/97). ROSADO to LAD, JANN to RCA. S/P cholecystectomy. S/P colonoscopy (01/16/15). S/P radical cystoprostatectomy (08/23/16). With bilateral total pelvic lymphadenectomy PREVIOUS FUNCTIONAL STATUS/SOCIAL/FAMILY SUPPORTS:: Saúl lives in [place], with his , their daughter Ramona and grandson Saúl. Pt sushila is active and independent at baseline and has a supportive family. CURRENT FUNCTIONAL STATUS:: Saúl is lying in bed when CM met with him. He is a wake and easily engages in conversation. Saúl shares that he's had some recent health issues which is hard for him, because he doesn't do well sitting still. He has however been trying to take it easy. ADVANCE DIRECTIVES:: None on file Has patient been provided with info about the portal/API?: Yes Did the patient sign up for the portal?: Yes (Prior to admission) CODE STATUS:: Full Code INSURANCE COVERAGE / FINANCIAL ISSUES:: Medicare CURRENT HOME/COMMUNITY SERVICES/EQUIPMENT:: None currently PRIMARY CARE PHYSICIAN:: Jacquelyn Reyes POTENTIAL DISCHARGE NEEDS:: Follow up appointments, discharge plan of care PATIENT/FAMILY EDUCATION NEEDS:: Review discharge instructions,limitations, medications and plan. Discuss ask me three. TRANSPORTATION:: Via private vehicle with family. PLAN:: Anticipate, Saúl will discharge home when medically ready per provider. He will follow up with community providers and discharge plan of care as prescribed. CM will continue to support pt and his discharge plan. Readmission - Within the Past 30 Days Yes or No: Y - Date of First Admission Date of 1st Admission: 08/05/22 - Date of this Admission Date of Admission: 08/05/22 This admission was: Through ED - Office Visit Since 1st Admission Have you seen your PCP in the office since discharge?: Yes Date of PCP Appointment: 08/13/22 Had an appointment Been Scheduled?: No Describe barriers for scheduling or getting an appointment: Sa[facility]l transferred from [facility] to [facility]. - Speicalist Appointments Have you seen any other specialist since your 1st Admission?: Yes Date you saw the Specialist: 09/03/22 Specialist Seen: Neurology, Dr. Deshpande. Specialist seen during current admission. - I. Interview patient and/or Family Difficulty reaching your doctor or getting an office appt?: No Have you had trouble purchasing/ or taking medication?: No Have you had trouble with getting meals at home?: No Did you feel ready for discharge when you left the last time: Yes Were services received that you thought were set up on disch: Yes What services were received?: None Did you call your physician beore you came to the ED?: No - ED visits How many ED visits in the past 12 months: 3
--- NOTE | 2022-09-04 10:48 | PT.INIE ---
Date of service: 09/04/22 Time of Service: 10:48 PT Notes Visit Reasons: Cerebellar Stroke Physical Therapy Inpatient Initial Evaluation Date: 09/04/2022 Referring Doctor: Jia Garrido NP PT Orders: PT CONSULT: D/C Non-PT Dependent. [place]-Hallpike maneuver/Aguilar maneuver please Precautions: Fall. Standard. Activity as tolerated. Patient Profile/Admitting Diagnosis: Saúl is a 71-year-old male admitted to [facility] on 09/03/2022 for management of atrial fibrillation, CAD, epigastric pain with associated nausea, vomiting, and dizziness. PMHX: All Active Problems?(Updated 09/03/22 @ 14:15 by Delano Ni MD) Gastritis (Acute) Pacemaker (Acute ~07/2022) Sick sinus syndrome (Chronic ~07/2022) S/p? Dual chamber pacemaker Subclinical hypothyroidism (Acute) Coronary artery disease (Chronic) Obstructive sleep apnea (Chronic) PSG 08/2020, on CPAPAtrial fibrillation (Chronic) S/p cardioversion 03/07/21 On eliquisChronic anticoagulation (Chronic) History of prostate cancer (Chronic ~2015) Brian score 6, s/p radical prostatectomy 2017 Essential hypertension (Chronic) Hyperlipidemia (Chronic) Primary osteoarthritis of left shoulder (Chronic) Lumbar back pain with radiculopathy affecting lower extremity (Chronic) Gastroesophageal reflux disease with esophagitis (Chronic) EGD 2013 Medical History? Adenocarcinoma of prostate (~2015) Brian score 6, s/p radical prostatectomy 2017 COVID-19 (~01/10/22) Surgical History? H/O umbilical hernia repair History of esophagogastroduodenoscopy (EGD) (04/04/14) S/P CABG x 2 (04/14/97) ROSADO to LAD, JANN to RCA S/P cholecystectomy S/P colonoscopy (01/16/15) S/P radical cystoprostatectomy (08/23/16) With bilateral total pelvic lymphadenectomy Social History/Home Situation: Lives with in a private home. Indpeendent with all aspects of ADLs prior to admission. Equipment Owned/DME: [facility] Subjective: Patient indicated that his neck pain has been bothering him even before hospital admission. Patient reported increased stomach upset, ringing sensation in ears, and increased throbbing pain in neck at 7/10 with modified george-hallpike maneuver. Nurse Peyton and hospitalist Jia ward. Objective: General Observation: Supine in bed with HOB at 30 degrees. Telemetry monitoring in place. Mental Status: Alert and oriented as to person, place, time, and purpose. Able to pay attention, focus, and respond appropriately. Pain: Pain in neck at 8/10 with modified [place]-Hallpike maneuver Vital Signs: WNL as closely mnitored by nursing staff ROM: Neck: Extension to neutral only due to pain. Rotation 60 degrees bilaterally, lateral flexion 30 degrees on B sides. Flexion WFL. Right Upper Extremity: Shoulder Flexion WFL. Shoulder abduction WFL. Elbow flexion WFL. Wrist flexion WFL. Functional opening and closing of hand WFL. Left Upper Extremity: Shoulder Flexion WFL. Shoulder abduction WFL. Elbow flexion WFL. Wrist flexion WFL. Functional opening and closing of hand WFL. Right Lower Extremity: Hip flexion WFL. Hip abduction WFL. Knee flexion WFL. Ankle dorsiflexion WFL. Ankle plantarflexion WFL. Left Lower Extremity: Hip flexion WFL. Hip abduction WFL. Knee flexion WFL. Ankle dorsiflexion WFL. Ankle plantarflexion WFL. Strength: Neck: Neck extension 3-/5. Neck rotators 4-/5. Neck lateral flexors 3-/5. Flexors 4-/5 Right Upper Extremity: Shoulder flexors 4/5. Shoulder abductors 4/5. Elbow flexors 4/5. Elbow extensors 4/5. Commercial Center Manager strong. Left Upper Extremity:Shoulder flexors 4/5. Shoulder abductors 4/5. Elbow flexors 4/5. Elbow extensors 4/5. Commercial Center Manager strong. Right Lower Extremity: Hip flexors 4/5. Hip abductors 4/5. Knee flexors 4/5. Knee extensors 4/5. Ankle dorsiflexors 4/5. Ankle plantarflexors 4/5. Left Lower Extremity: Hip flexors 4/5. Hip abductors 4/5. Knee flexors 4/5. Knee extensors 4/5. Ankle dorsiflexors 4/5. Ankle plantarflexors 4/5. Bed Mobility/Transfers: Supine to sit supervision with increased time for activity completion Sit to supine supervision with increased time for activity completion Gait: NT Balance: Static Sitting: Normal Dynamic Sitting: Normal Static Standing: NT Dynamic Standing: NT Special Tests: Mobility Limitations Standardized Measure [facility] AM-PAC 6 clicks Basic Mobility Inpatient Short Form: Raw Score: 21 CMS Score: 29% deficit NEURO: Neck tender to palpation throughout, worse with gentle STM. Visual tracking impaired and slowed down. No spontaneous nystagmus at rest. Unable to do alar ligament test objectively as patient reports pain in neck. Unable to do sharp vignesh test objectively as patient reports pain in neck. George-Hallpike maneuver: Produced ringing sensation in L ear with L George-Hallpike but no torsional nystagmus nor report of dizziness. Patient was unable to tolerate 2 minutes in the position and needed to sit slowly back up due to report of increasing throbbing pain in neck and stomach upset. Deferred R Louisville-hallpike until CTA testing is done. Nurse Peyton and INDUSTRIAL SAFETY AND HEALTH TECHNICIAN Jia apprised. Informed Consent/Education: Patient was instructed in purpose of PT consult and plan of care. Agreeable to holding off on continuing evalaution afte CTA result is obtained. Assessment: Hold off on any further testing until CTA rules out any neck pathology. [place] is assessed [place] a 47084 moderate complexity based on the following: History: 71-year-old male with past medical history as indicated above Examination: Demonstrable impairment in strength, balance, and mobility level with underlying impairments and functional limitations as exhibited above as well as deficit score of 29% utilizing the [facility] Mobility Inpatient Short Form Presentation: Evolving Decision Makin moderate complexity Goals: Goals X1 week 1. Supine-Sit independent 2. Sit-Supine independent 3. Sit-Stand independent 4. Stand-Sit independent with no AD 5. Bed-Chair independent with no AD 6. Chair-Bed independent with no AD 7. Independent gait on level surface with use of no AD for at least 300 feet without report of pain nor dyspnea 8. Independent stair negotiation while holding onto [] rails for at least [] steps without report of pain nor dyspnea 9. Independent with home exercise program 10. Good static and dynamic standing balance/tolerance Plan of Care/Treatment Plan: 1-2x/day, 7 days/week x 1 week. Plan of care has been reviewed with the INTERVIEWING CLERK providing the service under Physical Therapy direction. Initiate Physical Therapy intervention for pain management as needed, strengthening, bed mobility, transfers, gait, stairs, balance training, and use of assistive device. DISCHARGE RECOMMENDATIONS: [] Home with no services [] [] Home with services [specify] [] Home with outpatient PT [] [] SNF for continued rehabilitation [] [] [facility] [] [] SNF versus LTC based on ability to participate and progress [] [X] TBD depending on further examination/medical course TREATMENT CODE/TIME: 71817 x 24 minutes beginning at 10:48 AM. Thank you for the opportunity to participate in the care of this patient. Ghazala Cabello PT, DPT, CLT [facility] [place], [place]
[2022-09-04] MEDS: Ondansetron 4 MG/2 ML VIAL IVP (11:26)
--- NOTE | 2022-09-04 11:26 | W.NUTCONSULT ---
Date of service: 08/14/22 Time of Service: 13:00 Nutritional Consult ASSESSMENT: Ms. Crystal presents for medical nutrition therapy for diabetes. Her most recent A1C was 8.4. She started glipizide 5 mg twice daily. Her fasting blood sugars had been as high as 260. Since she has made some dietary changes and started the medicine her morning blood sugars are closer to target. For breakfast she has a light and fit yogurt with a tbsp. of cinnamon or 2 mini bagels and cream cheese Lunch is usually a casserole of some sort and 1.5 cups of light vanilla ice cream with caramel sauce. She has a snack of a chocolate chip cookie or a maple cookie. Dinner is often 1.5 cups of cereal and 2-3 tbsp. of maple syrup She drinks black coffee and water. 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 NUTRITIONAL DIAGNOSIS: Excessive intake of carbohydrates contributing to A1C of 8.4 as evidenced by dietary recall and also seen in blood sugar checks. Physical inactivity as noted above. INTERVENTION: We discussed the plate method to portion out meals as well as keeping CHO intake to 30 grams per meal. We reviewed meal planning using carbohydrate counting. Provided written materials. Ms. Crystal demonstrated that she understood the information and was able to come up with lower carbohydrate nutrient dense meal and snack ideas. Encouraged Ms. Crystal to start with a ten minute walk even if around the house, three days per week. MONITORING AND EVALUATION: I will follow up with Ms. Crystal by phone in 2 to 3 weeks. She will be monitoring her intake and blood sugars. Will evaluate nutrition care plan for adequacy and accuracy when I follow up with her. Thank you for this referral. Time Spent in Nutritional Counseling and Treatment: 29 minutes spent face to face. 1300 to 1329.
[2022-09-04] MEDS: Ketorolac 30 MG/ML VIAL IVP (13:50)
--- NOTE | 2022-09-04 13:50 | DI.CT_ITS ---
Exam(s) CT BRAIN NECK CTA EXAM: CT BRAIN NECK CTA CLINICAL HISTORY: Hypoodensity in cerebellum on CT head. TECHNIQUE: Imaging Protocol: Axial CT angiography was performed with multi-slice acquisition and mu lti-planar and/or 3D reconstructions. CONTRAST MATERIAL: Intravenous: Omnipaque 350 contrast volume:85 mL COMPARISON: CT CT HEAD WO from 09/03/2022 FINDINGS: CT Head W/O and W: Ventricles and Extra axial spaces: Normal in size and morphology for the patient's age. Hemorrhage: None. Cerebral parenchyma: No evidence of an acute territorial infarct are seen. There are areas of decrea sed attenuation in the white matter consistent with small vessel ischemic disease. The area in the l eft cerebellum is launch less prominent on the current examination. The increased prominence on the prior examination may be due to beam hardening artifact. Midline shift: None. Brainstem/Cerebellum: Normal. Calvarium: Normal. Visualized Paranasal sinuses/Mastoids: Clear. Soft Tissues: Unremarkable. Enhancement: Unremarkable. CTA Neck W: Common Carotid: Right: No dissection, occlusion or significant stenosis. Left: No dissection, occlusion or significant stenosis. External Carotid: Right: No occlusion or significant stenosis. Left: No occlusion or significant stenosis. Internal Carotid: Right: No dissection, occlusion or significant stenosis. Left: There is no occlusion or dissection. There is narrowing at the origin of the left internal ca rotid artery in the 70-80 percent range. Vertebral Artery: Right: No dissection, occlusion or significant stenosis. Left: No dissection, occlusion or significant stenosis. There is mild atherosclerosis at the origin of the left vertebral artery. Lung Apices: Normal. Bones: Within normal limits for the patient's age. Soft Tissues: Tonsillar calcifications are seen. There is a battery pack in the soft tissues of the left anterior chest wall. Thyroid gland: Unremarkable. CTA Brain W: Internal Carotid Arteries: There is mild atherosclerosis seen bilaterally. No significant stenosis, occlusion or aneurysm is seen. Anterior Cerebral Arteries: Right: No aneurysm, occlusion or significant stenosis. Left: No aneurysm, occlusion or significant stenosis. Middle Cerebral Arteries: Right: No aneurysm, occlusion or significant stenosis. Left: No aneurysm, occlusion or significant stenosis. Posterior Cerebral Arteries: Right: No aneurysm, occlusion or significant stenosis. Left: No aneurysm, occlusion or significant stenosis. Vertebral Arteries: Right: No aneurysm, occlusion or significant stenosis. Left: No aneurysm, occlusion or significant stenosis. There is mild atherosclerosis seen in the dist al vertebral artery. Basilar Artery: No aneurysm, occlusion or significant stenosis. IMPRESSION: 1. No large vessel occlusion or significant stenosis on the CT angiography of the head. 2. No acute intracranial process. No abnormal enhancement intracranially. 3. Marked narrowing at the origin of the left internal carotid artery in the 70-80 percent range. 4. Mild atherosclerosis involving the left vertebral artery without occlusion or significant stenosis . RADIATION DOSE DELIVERED: 2,081.47mGy.cm Total DLP DATA REPOSITORY: All CT scans at this facility are submitted to the National Radiology Data Registry (NRDR) Dose Index Registry (DIR) with the [employer] (ACR). RADIATION OPTIMIZATION: All CT scans at this facility use at least one of these dose optimization te chniques: automated exposure control; mA and/or kV adjustment per patient size (includes targeted exa ms where dose is matched to clinical indication); or iterative reconstruction.
[2022-09-04] MEDS: Omnipaque 350 MG/ML 100 ML BTL IJ (13:55)
[2022-09-04] MEDS: Normal Saline - Diluent 50 ML VIAL IJ (13:56)
--- NOTE | 2022-09-04 14:38 | PHA.REVIEW2 ---
Pharmacy Admission Review - Admission Clinical Review (Last Updated 09/04/22 @ 11:50 by Jia Garrido NP) Dizziness (Acute) DVT prophylaxis (Acute) Discharge planning issues (Acute) metoprolol Adverse Reaction (Severe, Verified 08/13/22 14:32) Bradycardia Resuscitation Status Full Code Height 5 ft 7 in Weight 91.626 kg - Renal Dosing Renal Dosing: BUN 14 mg/dL (7-18) 09/04/22 05:50 Creatinine 1.0 mg/dL (0.70-1.30) 09/04/22 05:50 Medications needing adjustments: Reviewed (eCrCl 71 ml/min, orders ok) - Anticoagulation Anticoagulation: Hgb 13.8 g/dL (13.5-17.5) 09/04/22 05:50 Hct 41.7 % (40.0-50.0) 09/04/22 05:50 Plt Count 212 10^3/uL (130-400) 09/04/22 05:50 Creatinine 1.0 mg/dL (0.70-1.30) 09/04/22 05:50 Therapeutic Anticoagulation: Reviewed Medications: Apixaban - Opiate Usage Evaluate Pain Scale/Pains Meds: N/A - Relevant Labs Sodium 141 mmol/L (136-145) 09/04/22 05:50 Potassium 4.1 mmol/L (3.5-5.1) 09/04/22 05:50 Chloride 108 mmol/L (98-107) H 09/04/22 05:50 Magnesium 2.0 mg/dL (1.8-2.4) 09/04/22 05:50 Electrolytes, C-Reactive P, ESR: Reviewed - DM Control DM Control: Glucose 93 mg/dL (74-106) 09/04/22 05:50 DM Control: N/A - Cardiac Review Cardiac Review: Troponin I < 50 ng/L (<or=60) 09/03/22 11:00 BP, HR, EF%: Reviewed - Qtc Review If Elevated, List meds needing intervention: QTc 372 on admission - IV to PO Switch IV Medications: Reviewed - Home Meds Home Med List reviewed: Reviewed Relevent Home Meds Not ordered & why?: all ordered Medication adherence barriers identified?: I do not see any record of patient having filled atorvastatin or eliquis within the past year, should ensure patient is in fact able to pick these medications up from his pharmacy - Current meds Current Medication Order Review: Reviewed
--- NOTE | 2022-09-04 16:52 | W.PM.PROGNOT ---
Date of Service Date of service: 09/04/22 Time of Service: 16:52 Assessment and Plan Assessment and plan (1) Left carotid stenosis: Status: Acute Assessment and plan: Difficult story to understand but neurologically the concern was this ?abnormality on CTH imaging - repeat today shows no abnormality, no concern for stroke, etc. Great news. Incidental finding of L carotid stenosis. Moderate-high grade. He is already on ASA+statin. I recommend outpatient vascular surgery referral for further monitoring/treatment recommendations. Nausea/emesis does not otherwise seem to be neurological - related to neck pain/GERD/other? He will follow-up in neurology as needed. Please call with any further questions or concerns. Subjective Subjective Interval history since last seen: Mr. Virk did ok overnight. During PT this afternoon he had increased neck pain with nausea - no emesis. Doing better s/p toradol and PPI. -CTH (09/04/22): no acute events. Previous cerebellar hypodensity no longer present. I reviewed these images personally and this is my personal interpretation. -CTA head/neck (09/04/22): L carotid stenosis at origin. Measured 70-80% by rads. I reviewed these images personally and this is my personal interpretation. Exam Narrative Exam Narrative: Physical Exam: Constitutional: Patient of apparent stated age, well nourished, well developed, no acute distress Neuro: MS/Language/Speech: Alert, oriented, clear language (fluency and comprehension), no dysarthria CN:EOMI, visual bustillo full, trigeminal sensation intact, no facial asymmetry, hearing intact Motor: Normal bulk and tone. FMM intact, no pronator drift. Coordination: Finger to nose performed without dysmetria Objective Last Vital Signs Temp 98.2 F 09/04/22 15:38 Pulse 65 09/04/22 15:38 Resp 16 09/04/22 15:38 BP 133/72 09/04/22 15:38 Pulse Ox 95 09/04/22 15:38 Laboratory Results - last 24 hr 09/03/22 09/04/22 09/04/22 21:05 05:50 05:50 WBC 6.92 RBC 4.73 Hgb 13.8 Hct 41.7 MCV 88 MCH 29.2 MCHC 33.1 RDW 12.2 Plt Count 212 MPV 9.4 Immature Gran % 0.1 Neutrophils % 62.6 Lymphocytes % 28.8 Monocytes % 6.4 Eosinophils % 1.7 Basophils % 0.4 Nucleated RBC % 0.0 Absolute Neutrophils 4.33 Absolute Lymphocytes 1.99 Absolute Monocytes 0.44 Absolute Eosinophils 0.12 Absolute Basophils 0.03 Sodium 141 Potassium 4.1 Chloride 108 H Carbon Dioxide 26.7 Anion Gap 6.3 BUN 14 Creatinine 1.0 Est GFR (CKD-EPI 2020) 79.47 Glucose 93 Calcium 9.4 Magnesium 2.0 Urine Color Yellow Urine Clarity Clear Urine pH 6.5 Ur Specific [place] 1.020 Urine Protein Negative Urine Ketones Negative Urine Blood Negative Urine Nitrite Negative Urine Bilirubin Negative Urine Urobilinogen 0.2 Ur Leukocyte Esterase Negative Urine Glucose Negative Time Spent with Patient Time Spent with Patient: 25-34 minutes Time was spent: preparing to see the patient(eg.review tests), referring, communicating with other health small animal caretaker, indepentently interpreting results and counseling the patient
--- NOTE | 2022-09-04 17:07 | DSE_ITS ---
Date of service: 09/04/22 Time of Service: 17:07 DS: Diagnosis Discharge Diagnosis (1) Left carotid stenosis: Status: Chronic Asessment and Plan: Patient presented to the ED with nausea and vomiting. He had an abnormal finding on his CT. He was seen by neurology and a stroke was ruled out. He did have some left carotid stenosis that was found on CT and he will follow up out patient with vascular. He saw PT and had [place] Hall[place] and [place] maneuvers and improved. Discharge Plan Disposition Patient Disposition: Home Condition: Improving Discharge Details Reason For Visit: Cerebellar Stroke Admit Date/Time: 09/03/22 14:58 Admit Provider: Cody Richardson Attending Provider: Cody Richardson Primary Care Provider: Jacquelyn Reyes Hospital Course Hospital Course: This is an 81-year-old male patient that presented to the [facility] em ergency department with the chief complaint of approximately 4 days of epigastric pain and nausea with vomiting,?which he described as similar to prior episodes. He described the pain as burning,?and was localized to the mid abdomen with some radiation to back.?Patient also noted loss of appetite, and reported the nausea and vomiting was worse with movement of his head. He denied chest pain, fever/chills, syncope and weakness.?CT of the head revealed hypodensity in the left cerebellar hemisphere and is reported as it may represent subtle ischemic change.? See the formal report.? Chest x-ray unremarkable.? Abdomen CT no acute findings, see the formal report.? Laboratories reveal white count of 12, hematocrit 44, platelets 226.? Chemistries within normal limits.? LFTs unremarkable and troponin is negative.? Lipase negative.? He was admitted to the medical floor for observation and neurology consultation. He met with PT and the [place] and Epply maneuvers were done, with his reporting some improvement. After being seen by neurology, he did not have a stroke on imaging and there is no concern for stroke. he does however have left carotid stenosis. He takes aspirin and a sta tin already. He was given a referral to outpatient vascular for further monitoring and treatment. He no longer had nausea or vomiting, felt his abdominal pain was GERD and he was discharged to home, improved. Discussed with Dr Richardson Home Meds and New Rx's Prescriptions: New sucralfate 1 gram Tablet 1 g PO AC & HS Qty: 80 0RF meclizine 25 mg tablet 25 mg PO TID PRNQty: 30 0RF ondansetron 4 mg tablet,disintegrating 4 mg PO Q6H PRNQty: 30 0RF diazepam [Valium] 5 mg tablet 5 mg PO BID PRNQty: 10 0RF Continued cholecalciferol (vitamin D3) [Vitamin D3] 125 mcg (5,000 unit) tablet 125 mcg PO DAILY ibuprofen 800 mg tablet 800 mg PO PRN Qty: 60 1RF Rx Instructions: Take one daily if needed. Do not exceed 1 tablet daily. nitroglycerin 0.4 mg tablet, sublingual 0.4 mg Sublingual .COMPLEX MDD 3 tab Qty: 50 2RF Rx Instructions: 0.4 mg Sublingual x 3 prn chest pain. If no relief go to ED ; amlodipine 10 mg tablet 10 mg PO DAILY Qty: 90 3RF Rx Instructions: Take 1 tablet daily atorvastatin 80 mg tablet 80 mg PO DAILY Qty: 90 4RF omeprazole 40 mg capsule,delayed release(DR/EC) 40 mg PO DAILY Qty: 90 3RF ezetimibe [Zetia] 10 mg tablet 10 mg PO DAILY Qty: 90 4RF apixaban 5 mg tablet 5 mg PO BID Qty: 180 3RF aspirin 81 MG tablet,chewable 81 mg PO DAILY Patient Comments: States he takes two. No Action losartan 100 mg tablet 100 mg PO DAILY Qty: 90 3RF isosorbide mononitrate 30 mg tablet extended release 24 hr 30 mg PO DAILY Qty: 90 3RF Discharge Instructions Instructions: Carotid Artery Disease (DC), Benign Paroxysmal Positional Vertigo (DC), DASH Eating Plan (DC), Acute Neck Pain (ED) Additional Instructions: Take Meclizine for dizziness; if it is moderate take Valium INSTEAD of Meclizine or after 2 hours of no improvement after Meclizine. Continue Omeprazole and start Carafate, continue until you see your PCP. You can try ondansetron under your tongue for nausea not associated with vertigo. A referral has been sent to [facility] for vascular surgery. They should contact you to make an appointment regarding the narrowing of your left internal carotid artery that was found incidentally on your cat scan. Take tylenol for neck pain. Apply heat/cold. A referral for PT has been sent in for you, they will call you with appointment to assess and make recommendations for dizziness. Review your chronic morning nausea with you PCP at that visit and decide next steps. Stand Alone Forms: Nursing Discharge Form Referrals: Jacquelyn Reyes NP [Primary Care Provider] - 09/20/22 11:40 am CARMINE NASH MD [MD NON-[facility] STAFF PHYSICIAN] - (Patient admitted to [facility] for CVA - had CTA brain and neck - no CVA; incidental finding of 70-80% occlusion of left internal carotid artery. Common Carotid: Right: No dissection, occlusion or significant stenosis. Left: No dissection, occlusion or significant stenosis. External Carotid: Right: No occlusion or significant stenosis. Left: No occlusion or significant stenosis. Internal Carotid: Right: No dissection, occlusion or significant stenosis. Left: There is no occlusion or dissection. There is narrowing at the origin of the left internal carotid artery in the 70-80 percent range. Vertebral Artery: Right: No dissection, occlusion or significant stenosis. Left: No dissection, occlusion or significant stenosis. There is mild atherosclerosis at the origin of the left vertebral artery. Lung Apices: Normal. Bones: Within normal limits for the patient's age. Soft Tissues: Tonsillar calcifications are seen. There is a battery pack in the soft tissues of the left anterior chest wall. Thyroid gland: Unremarkable. CTA Brain W: Internal Carotid Arteries: There is mild atherosclerosis seen bilaterally. No significant stenosis, occlusion or aneurysm is seen. Anterior Cerebral Arteries: Right: No aneurysm, occlusion or significant stenosis. Left: No aneurysm, occlusion or significant stenosis. Middle Cerebral Arteries: Right: No aneurysm, occlusion or significant stenosis. Left: No aneurysm, occlusion or significant stenosis. Posterior Cerebral Arteries: Right: No aneurysm, occlusion or significant stenosis. Left: No aneurysm, occlusion or significant stenosis. Vertebral Arteries: Right: No aneurysm, occlusion or significant stenosis. Left: No aneurysm, occlusion or significant stenosis. There is mild atherosclerosis seen in the distal vertebral artery. Basilar Artery: No aneurysm, occlusion or significant stenosis. IMPRESSION: 1. No large vessel occlusion or significant stenosis on the CT angiography of the head. 2. No acute intracranial process. No abnormal enhancement intracranially. 3. Marked narrowing at the origin of the left internal carotid artery in the 70- 80 percent range. 4. Mild atherosclerosis involving the left vertebral artery without occlusion or significant stenosis. ) Ren Jain, PT [PHYSICAL THERAPIST] - (BPPV) Activity:: Activity as Tolerated Equipment/Supplies:: No Equipment Needed Diet:: As Tolerated Discharge Orders Discharge Orders: Discharge Order (Routine); Ordered 09/04/22 Ordered By: Jia Garrido Discharge Data Discharge Date/Time-TO BE ENTERED AT DEPARTURE: 09/04/22 18:18 DS: Summary Time Spent with Patient providing and/or coordinating discharge services: Greater than 30 minutes Status at Discharge Functional status at discharge: independent ambulation Overall status at discharge: patient is back to baseline Mental Status: mental status grossly normal Speech and Movement: speech and movement normal Mood: congruent mood Affect: normal affect Exam Narrative Exam Narrative: GEN: awake, alert, oriented 3. Pleasant, well groomed, interactive. HEAD: Normocephalic, atraumatic ENT: Mucous membranes moist, oropharynx unremarkable, External ear exam unremarkable EYES: PERRL, EOMI NECK: Full ROM, no LESTER, no menigismus CHEST/RESP: Nontender, scant dependent rales present bilaterally CARDIOVASCULAR: RRR, no murmur, rub erik. 2+ Rad pulse bilateral ABDOMEN: Soft, tender in the epigastrium and left abdomen, no mass. +Bowel sounds EXT: Full ROM, no edema, no rash Neuro: Grossly normal neurologic exam, conversant, interactive. Psych: Speech fluent, thoughts congruent, affect normal Psych Mental Status: mental status grossly normal Speech and Movement: speech and movement normal Mood: congruent mood Affect: normal affect DS: Data Vitals/I&O Vitals and I&O: Vital Signs Temperature 36.8 C 09/04/22 15:38 Temperature Source Tympanic 09/04/22 15:38 Pulse 65 09/04/22 15:38 Pulse Rhythm Regular 09/04/22 15:38 Pulse 60 09/03/22 16:16 Respiratory Rate 16 09/04/22 15:38 Respiratory Effort Non-Labored 09/04/22 15:38 Respiratory Depth Normal 09/04/22 15:38 Respiratory Pattern Normal 09/04/22 15:38 Blood Pressure 133/72 09/04/22 15:38 Blood Pressure Mean 89 09/03/22 16:16 Blood Pressure Position Sitting 09/03/22 09:55 Pulse Oximetry 95 09/04/22 15:38 Oxygen Delivery Method Room Air 09/04/22 15:38 Oxygen Flow Rate 0 09/04/22 15:38 Pain Level 0 09/04/22 15:51 Comment 09/04/22 07:30 Intake & Output 09/03/22 09/04/22 09/04/22 23:59 11:59 23:59 Intake Total 1000 / 1000 2276.666 / 3276.666 1000 / 3276.666 Output Total 700 / 700 1600 / 2300 700 / 2300 Balance 300 / 300 676.666 / 976.666 300 / 976.666 Weight 91.626 kg Intake: IV 1000 / 1000 1916.666 / 2916.666 1000 / 2916.666 Oral 360 / 360 Output: Urine 700 / 700 1600 / 2300 700 / 2300 Other: Urine Color Yellow Yellow Yellow Urine Appearance Clear Clear Clear Urine Odor Normal Voiding Methods Urinal Toilet Toilet Data Completed and Pending Labs on day of discharge: Labs from last 24 hours 09/04/22 09/04/22 09/03/22 05:50 05:50 21:05 WBC 6.92 RBC 4.73 Hgb 13.8 Hct 41.7 MCV 88 MCH 29.2 MCHC 33.1 RDW 12.2 Plt Count 212 MPV 9.4 Immature Gran % 0.1 Neutrophils % 62.6 Lymphocytes % 28.8 Monocytes % 6.4 Eosinophils % 1.7 Basophils % 0.4 Nucleated RBC % 0.0 Absolute Neutrophils 4.33 Absolute Lymphocytes 1.99 Absolute Monocytes 0.44 Absolute Eosinophils 0.12 Absolute Basophils 0.03 Rivaroxaban Interp Rivaroxaban Cautions Sodium 141 Potassium 4.1 Chloride 108 H Carbon Dioxide 26.7 Anion Gap 6.3 BUN 14 Creatinine 1.0 Est GFR (CKD-EPI 2020) 79.47 Glucose 93 Calcium 9.4 Magnesium 2.0 Urine Color Yellow Urine Clarity Clear Urine pH 6.5 Ur Specific [place] 1.020 Urine Protein Negative Urine Ketones Negative Urine Blood Negative Urine Nitrite Negative Urine Bilirubin Negative Urine Urobilinogen 0.2 Ur Leukocyte Esterase Negative Urine Glucose Negative Rivaroxaban (Xarelto) 09/03/22 18:00 WBC RBC Hgb Hct MCV MCH MCHC RDW Plt Count MPV Immature Gran % Neutrophils % Lymphocytes % Monocytes % Eosinophils % Basophils % Nucleated RBC % Absolute Neutrophils Absolute Lymphocytes Absolute Monocytes Absolute Eosinophils Absolute Basophils Rivaroxaban Interp Pending Rivaroxaban Cautions Pending Sodium Potassium Chloride Carbon Dioxide Anion Gap BUN Creatinine Est GFR (CKD-EPI 2020) Glucose Calcium Magnesium Urine Color Urine Clarity Urine pH Ur Specific [place] Urine Protein Urine Ketones Urine Blood Urine Nitrite Urine Bilirubin Urine Urobilinogen Ur Leukocyte Esterase Urine Glucose Rivaroxaban (Xarelto) Pending 09/03/22 18:15 Blood Blood Culture - Pending 09/03/22 18:00 Blood Blood Culture - Pending Preliminary micro results at discharge 09/03/22 18:15 Blood Culture - Pending Blood 09/03/22 18:00 Blood Culture - Pending Blood PFSH All Active Problems (Updated 09/09/22 @ 09:43 by Jacquelyn Reyes NP) BPPV (benign paroxysmal positional vertigo) (Acute) Left carotid stenosis (Chronic) Dizziness (Acute) CHF (congestive heart failure) (Chronic) Coronary artery disease (Chronic) Obstructive sleep apnea (Chronic) PSG 08/2020, on CPAP Atrial fibrillation (Chronic) S/p cardioversion 03/07/21 On eliquis Essential hypertension (Chronic) Hyperlipidemia (Chronic) Gastroesophageal reflux disease with esophagitis (Chronic) EGD 2013 Medical History (Updated 09/09/22 @ 09:43 by Jacquelyn Reyes NP) Abnormal CT of brain Adenocarcinoma of prostate (~2015) Staley score 6, s/p radical prostatectomy 2017 Chronic anticoagulation COVID-19 (~01/10/22) Gastritis History of prostate cancer (~2015) Staley score 6, s/p radical prostatectomy 2017 Lumbar back pain with radiculopathy affecting lower extremity Pacemaker (~07/2022) Primary osteoarthritis of left shoulder Sick sinus syndrome (~07/2022) S/p Dual chamber pacemaker Subclinical hypothyroidism Surgical History H/O umbilical hernia repair History of esophagogastroduodenoscopy (EGD) (04/04/14) 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 Maternal Grandmother No problems noted. Paternal Grandfather No problems noted. Paternal Grandmother No problems noted. Social History Smoking/Tobacco Use Status: Never Smoking risk assessment performed?: Yes Alcohol Intake: current Alcohol Intake frequency: a few times a week Alcohol type: beer Drug use: Never Substance use type: does not use Caregiver/Support person: No Household members: spouse and children Housing: house Communication Needs: None Do you need help understanding health information?: Never Pets and animals: Yes Pets and animals: dog(s) Sexually active: No Do you think of yourself as: straight/heterosexual Current gender identity: male What is your relationship status?: How often do you talk on the phone with friends or family?: decline to answer How often do you get together with friends or relatives?: decline to answer How often do you attend voodoo or restorationist services?: decline to answer Do you belong to any clubs or organized social groups?: decline to answer Panel score (0-1 are the most socially isolated patients): 1 What type of physical activity do you participate in: walking Duration: 45-60 minutes/day Frequency: daily [place]/Lutheran: None Special sydney needs: No Seatbelt use: always Drive intox 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
[2022-09-06 10:03] LABS: Rivaroxaban, Anti-Xa,P 39 ng/mL (<4)
== END 2022-09-04 18:18 | disposition home or self-care (01) | DRG 68 ==
LOC: ER 15:19 → MS 16:48
PROVIDERS: Nurse Practitioner Family; Admitting Provider Family Medicine; Emergency Provider Emergency Medicine; PCP Nurse Practitioner Family; Visit Provider Family Medicine
DX: I65.22 Occlusion and stenosis of left carotid artery (principal); R10.13 Epigastric pain; I49.5 Sick sinus syndrome; R11.2 Nausea with vomiting, unspecified; E03.9 Hypothyroidism, unspecified; G47.33 Obstructive sleep apnea (adult) (pediatric); I25.10 Atherosclerotic heart disease of native coronary artery without angina pectoris; I10 Essential (primary) hypertension; E78.5 Hyperlipidemia, unspecified; K21.00 Gastro-esophageal reflux disease with esophagitis, without bleeding; Z95.1 Presence of aortocoronary bypass graft; Z95.0 Presence of cardiac pacemaker; Z79.01 Long term (current) use of anticoagulants; Z85.46 Personal history of malignant neoplasm of prostate; Z86.16 Personal history of COVID-19; I48.0 Paroxysmal atrial fibrillation; I08.3 Combined rheumatic disorders of mitral, aortic and tricuspid valves; R42 Dizziness and giddiness; M54.2 Cervicalgia
CPT/HCPCS: 36410; 36415; 70496; 70498; 80048; 80053; 80299; 83690; 87040; 87635; 93005; 96374; 96375; 96376; 97162; 99223; 99232; 99285; 70450; 71046; 74177; 81003; 83735; 84484; 85025; 93010; 99222; 99239; J0780; J1170; J1885; J2405; J3490

== ENCOUNTER 2023-10-10 02:47 | Outpatient (CLI) | payer MEDICARE, SELFPAY ==
[2023-10-10 09:16] LABS: Abs Immature Grans 0.01 10^3/uL (0.0-0.06); Absolute Basophil Count 0.04 10^3/uL (0.0-0.2); Absolute Eosinophil Count 0.12 10^3/uL (0.0-0.7); Absolute Lymphocyte Count 2.18 10^3/uL (1.2-3.4); Absolute Monocyte Count 0.37 10^3/uL (0.1-0.8); Basophils % 0.8; Eosinophils % 2.3; HCT 45.8 % (40.0-50.0); HGB 15.4 g/dL (13.5-17.5); Immature Grans % 0.2; MCH 29.7 pg (27.0-33.0); MCHC 33.6 % (32.0-36.0); MCV 88 fL (80-95); MPV 9.5 fL (8.0-11.0); Neutrophils % 48.7; Platelet Count 275 10^3/uL (130-400); RBC 5.19 10^6/uL (4.36-5.78); RDW 12.6 % (11.8-14.1); WBC 5.32 10^3/uL (4.4-10.8)
[2023-10-10 09:42] LABS: ALT 29 U/L (16-63); AST 13 U/L (15-37); Albumin 3.8 g/dL (3.4-5.0); Alkaline Phosphatase 69 U/L (46-116); Anion Gap 8.4 mmol/L (3-11); BUN 15 mg/dL (7-18); Bilirubin, Total 0.5 mg/dL (0.2-1.0); CO2 28.6 mmol/L (21.0-32.0); CREATININE 1.1 mg/dL (0.70-1.30); Calcium 10.1 mg/dL (8.5-10.1); Calculated LDL 98 mg/dL (<100); Chloride 105 mmol/L (98-107); Cholesterol 165 mg/dL (<200); Estimated GFR 70.44 (mL/min/1.73m2); Glucose 102 mg/dL (74-106); HDL Cholesterol 42 mg/dL (40-60); Potassium 4.3 mmol/L (3.5-5.1); Sodium 142 mmol/L (136-145); TSH (W/Ref FT4) 3.75 uIU/mL (0.36-3.74); Total Protein 7.7 g/dL (6.4-8.2); Triglyceride 129 mg/dL (<150)
[2023-10-10 10:03] LABS: FREE T4 0.89 ng/dL (0.76-1.46)
[2023-10-10 18:42] LABS: PSA, Screening <0.1 ng/mL (<=6.5)
[2023-10-10 19:21] LABS: Hepatitis C Ab w Rflx HCV PCR Negative (Negative)
== END 2023-10-10 02:48 | disposition home or self-care (01) ==
PROVIDERS: PCP Nurse Practitioner Family; Visit Provider Nurse Practitioner Family
DX: Z00.00 Encounter for general adult medical examination without abnormal findings (principal); Z12.5 Encounter for screening for malignant neoplasm of prostate
CPT/HCPCS: 36415; 80053; 80061; 84153; 86803; 84439; 84443; 85025

== ENCOUNTER 2024-05-21 09:16 | Emergency (ER) | payer MEDICARE, SELFPAY ==
[2024-05-21 09:30] VITALS: BP 143/74; PULSE 75; RESP 15; TEMP 36.8; O2SAT 94
[2024-05-21 09:36] VITALS: BP 143/74; PULSE 75; RESP 15; TEMP 36.8; O2SAT 94
--- NOTE | 2024-05-21 09:50 | W.ED.GENAD ---
Discharge Plan Disposition Patient Disposition: Home Condition: Good Discharge Details Clinical Impression: Abscess of axilla, right Primary Care Provider: Jacquelyn Reyes ED Provider: Noemi Alonzo Home Meds and New Rx's Prescriptions: New doxycycline hyclate 100 mg capsule 100 mg PO BID Qty: 13 0RF Continued cholecalciferol (vitamin D3) [Vitamin D3] 125 mcg (5,000 unit) tablet 125 mcg PO DAILY ibuprofen 800 mg tablet 800 mg PO PRN Qty: 60 1RF Rx Instructions: Take one daily if needed. Do not exceed 1 tablet daily. amlodipine 10 mg tablet 10 mg PO DAILY Qty: 90 3RF Rx Instructions: Take 1 tablet daily isosorbide mononitrate 30 mg tablet extended release 24 hr 30 mg PO DAILY Qty: 90 3RF omeprazole 40 mg capsule,delayed release(DR/EC) 40 mg PO BID Qty: 180 3RF sucralfate 1 gram tablet 1 g PO AC & HS PRN (Reason: heartburn) Qty: 80 2RF apixaban 5 mg tablet 5 mg PO BID Qty: 180 3RF famotidine 20 mg tablet 20 mg PO QHS PRN (Reason: heartburn) Qty: 90 3RF nitroglycerin 0.4 mg tablet, sublingual 0.4 mg Sublingual .COMPLEX MDD 3 tab Qty: 50 2RF Rx Instructions: 0.4 mg Sublingual x 3 prn chest pain. If no relief go to ED ; ezetimibe [Zetia] 10 mg tablet 10 mg PO DAILY Qty: 90 3RF losartan 100 mg tablet 100 mg PO DAILY Qty: 90 3RF lansoprazole 30 mg capsule,delayed release(DR/EC) 30 mg PO DAILY Qty: 90 0RF atorvastatin 80 mg tablet 80 mg PO DAILY Qty: 90 3RF aspirin 81 MG tablet,chewable 81 mg PO DAILY Patient Comments: States he takes two. meclizine 25 mg tablet 25 mg PO TID PRNQty: 30 0RF Discharge Instructions Instructions: Abscess Incision and Drainage Additional Instructions: Please follow-up with your primary care provider on Friday or Friday for reassessment. I have prescribed an antibiotic of doxycycline. Please take the full course as prescribed. You had an abscess that was opened up to help with drain. Please keep it clean and dry. Wash daily antibacterial soap and water. Cover with a nonstick bandage. Apply a warm compress for 10 to 15 minutes at a time 4-5 times a day to help with healing. Return to emergency care if you develop new fever/chills, general malaise, worsening pain or swelling, inability to move your arm, or if you are very worried and need to be rechecked again immediately Referrals: Jacquelyn Reyes NP [Primary Care Provider] - HPI General Date/Time Provider Initiated Documentation: 05/21/24 09:27. HPI Narrative: Saúl is a 73-year-old male anticoagulated Eliquis who presents to the emergency department today for evaluation of abscess under right armpit. He reports that this started approximately 6 days ago as an ingrown hair, his daughter was able to remove the ingrown hair but it has had an open wound with pus drainage since then. It has become large, swollen, hard and painful. He denies systemic symptoms, says he has otherwise been feeling well without any fever/chills with general malaise. No history of diabetes or immunocompromise Physical exam remarkable for approximately 5 cm x 2 cm area of induration with erythema and tenderness to the right axilla with central opening. Full painless range of motion to arm. She is alert and oriented, in no acute distress, well-appearing. History and presentation consistent with uncomplicated abscess possibly due to ingrown hair. No red flags concerning for systemic illness at this time requiring diagnostic imaging or labs. Ultrasound was used to visualize abscess, a small pocket of fluid was visualized. I&D performed using a #11 scalpel after injection of 1% lidocaine with epi for local anesthetic. Patient tolerated procedure well, a moderate amount of purulent fluid was able to be expressed after breaking up loculations with forceps. Will start patient on doxycycline, first dose given in ED. Reviewed discharge instructions with patient, including wound care and red flags indicate need for return to emergency care Related Data Home Medications ?Medication ?Instructions ?Recorded ?Confirmed aspirin 81 mg chewable tablet 81 mg PO DAILY 06/21/13 05/21/24 cholecalciferol (vitamin D3) 125 125 mcg PO DAILY 12/30/19 05/21/24 mcg (5,000 unit) tablet (Vitamin D3) nitroglycerin 0.4 mg sublingual 0.4 mg sublingual .COMPLEX #50 06/20/20 05/21/24 tablet tab-caps meclizine 25 mg tablet 25 mg PO TID PRN #30 tabs 09/04/22 05/21/24 ibuprofen 800 mg tablet 800 mg PO PRN pain #60 tabs 01/13/23 05/21/24 ezetimibe 10 mg tablet (Zetia) 10 mg PO DAILY #90 tabs 06/24/23 05/21/24 losartan 100 mg tablet 100 mg PO DAILY #90 tabs 09/08/23 05/21/24 amlodipine 10 mg tablet 10 mg PO DAILY #90 tabs 09/26/23 05/21/24 apixaban 5 mg tablet 5 mg PO BID #180 tabs 09/26/23 05/21/24 famotidine 20 mg tablet 20 mg PO QHS PRN heartburn #90 tabs 09/26/23 05/21/24 isosorbide mononitrate 30 mg 30 mg PO DAILY #90 tabs 09/26/23 05/21/24 tablet,extended release 24 hr omeprazole 40 mg capsule,delayed 40 mg PO BID #180 caps 09/26/23 05/21/24 release sucralfate 1 gram tablet 1 g PO AC & HS PRN heartburn #80 09/26/23 05/21/24 tabs lansoprazole 30 mg capsule,delayed 30 mg PO DAILY #90 caps 01/26/24 05/21/24 release atorvastatin 80 mg tablet 80 mg PO DAILY #90 tabs 03/11/24 05/21/24 doxycycline hyclate 100 mg capsule 100 mg PO BID #13 caps 05/21/24 Previous Rx's ?Medication ?Instructions ?Recorded nitroglycerin 0.4 mg sublingual 0.4 mg sublingual .COMPLEX #50 06/20/20 tablet tab-caps meclizine 25 mg tablet 25 mg PO TID PRN #30 tabs 09/04/22 ibuprofen 800 mg tablet 800 mg PO PRN pain #60 tabs 01/13/23 ezetimibe 10 mg tablet (Zetia) 10 mg PO DAILY #90 tabs 06/24/23 losartan 100 mg tablet 100 mg PO DAILY #90 tabs 09/08/23 amlodipine 10 mg tablet 10 mg PO DAILY #90 tabs 09/26/23 apixaban 5 mg tablet 5 mg PO BID #180 tabs 09/26/23 famotidine 20 mg tablet 20 mg PO QHS PRN heartburn #90 tabs 09/26/23 isosorbide mononitrate 30 mg 30 mg PO DAILY #90 tabs 09/26/23 tablet,extended release 24 hr omeprazole 40 mg capsule,delayed 40 mg PO BID #180 caps 09/26/23 release sucralfate 1 gram tablet 1 g PO AC & HS PRN heartburn #80 09/26/23 tabs lansoprazole 30 mg capsule,delayed 30 mg PO DAILY #90 caps 01/26/24 release atorvastatin 80 mg tablet 80 mg PO DAILY #90 tabs 03/11/24 doxycycline hyclate 100 mg capsule 100 mg PO BID #13 caps 05/21/24 Allergies Allergy/AdvReac Type Severity Reaction Status Date / Time metoprolol AdvReac Severe Bradycardia Verified 05/21/24 09:43 General Stated Complaint: Cellulitis BR[place]FORD: 3 Review of Systems Narrative: see HPI Exam Const General: cooperative, healthy appearing, comfortable, no acute distress, well developed and well groomed Nutritional Appearance: average body habitus Orientation: alert and oriented x3 Resp Effort & Inspection: normal respiratory effort and able to speak in complete sentences Skin Other: abscess to R axilla, 5 cm x 2 cm area of erythema and induratin Extrem Right upper extremity: normal to inspection Course Vital Signs Vital signs: Vital Signs Temperature 36.8 C 05/21/24 09:30 Pulse 75 05/21/24 09:30 Respiratory Rate 15 05/21/24 09:30 Blood Pressure 143/74 H 05/21/24 09:30 Pulse Oximetry 94 05/21/24 09:30 Temperature 36.8 C 05/21/24 09:36 Pulse 75 05/21/24 09:36 Respiratory Rate 15 05/21/24 09:36 Respiratory Effort Normal 05/21/24 09:32 Blood Pressure 143/74 H 05/21/24 09:36 Blood Pressure Position Sitting 05/21/24 09:36 Pulse Oximetry 94 05/21/24 09:36 Oxygen Delivery Method Room Air 05/21/24 09:36 Oxygen Flow Rate 0 05/21/24 09:36 Pain Level 9 05/21/24 09:36 Procedures Abscess I/D Site: Upper Extremity (R axilla) Side (if applicable): Right Local Anesthetic: Lidocaine 1% and With Epi Amount of anesthesia used (mL): 5 Technique: Incised with #11 Blade Amount of fluid expressed (mL): 1 Irrigation: Yes Packing used?: None Medical Decision Making Quality:SDOH Health Related Social Needs: No Data to Display PFSH All Active Problems (Updated 05/21/24 @ 10:10 by Noemi Tlabot) Abscess of axilla, right (Acute) DJD (degenerative joint disease) of cervical spine (Acute) Coronary artery disease (Chronic) Atrial fibrillation (Chronic) S/p cardioversion 03/07/21 On eliquis Sick sinus syndrome (Chronic ~07/2022) S/p Dual chamber pacemaker Pacemaker (Chronic ~07/2022) Chronic anticoagulation (Chronic) Obstructive sleep apnea (Chronic) PSG 08/2020, on CPAP History of prostate cancer (Chronic ~2015) Brian score 6, s/p radical prostatectomy 2016 Essential hypertension (Chronic) Hyperlipidemia (Chronic) Bilateral carotid artery disease (Chronic) Gastroesophageal reflux disease with esophagitis (Chronic) EGD 2013 Gastritis (Chronic) Lumbar back pain with radiculopathy affecting lower extremity (Chronic) Subclinical hypothyroidism (Chronic) Hiatal hernia (Chronic) Primary osteoarthritis of left shoulder (Chronic) BPPV (benign paroxysmal positional vertigo) (Chronic) Medical History (Updated 05/21/24 @ 10:10 by Noemi Talbot) Tubular adenoma of colon On 2023 colonoscopy Adenocarcinoma of prostate (~2015) Custer score 6, s/p radical prostatectomy 2016 Surgical History S/P radical cystoprostatectomy (08/23/16) With bilateral total pelvic lymphadenectomy S/P colonoscopy (01/16/15) H/O umbilical hernia repair S/P cholecystectomy History of esophagogastroduodenoscopy (EGD) (04/04/14) Repeat 11/22/22 S/P CABG x 2 (04/14/97) ROSADO to LAD, JANN to RCA Family History (Updated 09/26/23 @ 13:16 by Jacquelyn Reyes NP) Mother , age 73 Heart disease Father , age 68 Heart disease Hyperlipidemia Hypertension Sister Depression Brother , age 80 Alcohol abuse Cancer of kidney Heart disease Hyperlipidemia Hypertension Brother , age 73 Depression Brother , 78 Heart disease Hyperlipidemia Hypertension Stroke Atrial fibrillation COPD (chronic obstructive pulmonary disease) Daughter Depression Maternal Grandfather No problems noted. Maternal Grandmother No problems noted. Paternal Grandfather No problems noted. Paternal Grandmother No problems noted. Brother COPD (chronic obstructive pulmonary disease) Social History Smoking/Tobacco Use Status: Never Smoking risk assessment performed?: Yes Alcohol Intake: current Alcohol Intake frequency: a few times a week Alcohol type: beer Drug use: Never Substance use type: does not use Caregiver/Support person: No Household members: spouse and children Housing: house Communication Needs: None Do you need help understanding health information?: Never Pets and animals: Yes Pets and animals: dog(s) Sexually active: No Do you think of yourself as: straight/heterosexual Current gender identity: male What is your relationship status?: How often do you talk on the phone with friends or family?: decline to answer How often do you get together with friends or relatives?: decline to answer How often do you attend restorationism or judaism services?: decline to answer Do you belong to any clubs or organized social groups?: decline to answer Panel score (0-1 are the most socially isolated patients): 1 What type of physical activity do you participate in: walking Duration: 45-60 minutes/day Frequency: daily Sydney/Scientologist: None Special sydney needs: No Seatbelt use: always Drive intox 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 stock car driver: No Do you feel safe at home: Yes Do you feel safe in your relationship?: Yes PAWSS Have you Been Recently Intoxicated or Drunk Within the Last 30 days?: No Have you Ever Experienced Previous Episodes of Alcohol Withdrawal?: No Have you ever Experienced Delirium Tremens(DT)s?: No Have you ever undergone Alcohol Rehabilitation Treatment (i.e, inpt ot outpatient treatment programs)?: No Have you ever Combined Alcohol with other Downers within the last 90 days?: No Result: 0
[2024-05-21] MEDS: Doxycycline Hyclate 100 MG CAP PO (10:13)
[2024-05-21] MEDS: Lidocaine 1% Multi-Dose W/EPI 1/100,000 10 ML VIAL IJ (10:14)
== END 2024-05-21 10:21 | disposition home or self-care (01) ==
LOC: ER 10:33
PROVIDERS: Emergency Provider Nurse Practitioner Family; PCP Nurse Practitioner Family
DX: L02.411 Cutaneous abscess of right axilla (principal); I10 Essential (primary) hypertension; I25.10 Atherosclerotic heart disease of native coronary artery without angina pectoris; I48.91 Unspecified atrial fibrillation; Z79.01 Long term (current) use of anticoagulants; Z79.82 Long term (current) use of aspirin; Z95.1 Presence of aortocoronary bypass graft; Z95.0 Presence of cardiac pacemaker
CPT/HCPCS: 10060; 99283; J2004

== ENCOUNTER 2024-09-06 01:12 | Outpatient (CLI) | payer MEDICARE, SELFPAY ==
--- NOTE | 2024-09-06 | DI.NM_ITS ---
APPROVED REPORT Exam: Pharmacologic Patient Location: Out-Patient Room/Bed: Stress Nurse: Noemi Clayton RN Ordering Provider:JOHN LUTHERLino, Contact Number: [phone] BMI: 33.04 Baseline Rhythm: A paced Indications: CAD, HLD Medical History Medical History: HTN, CAD, WINIFRED on CPAP, CAD s/p CABG (), paroxysmal afib, symptomatic bradycardi a s/p dual chamber pacemaker placement (2022) Cardiac Medications: lansoprazole, sucralfate, meclizine, apixaban, atorvastatin, ezetimibe, losartan , isosorbide monoitrate CR, amlodipine, aspirin, nitroglycerin, ondansetron Allergies: metoprolol Cardiac Risk Factors: HLD, HTN, CVD, FHX of CAD Previous Cardiac Procedures: CABG x2 () Pretest Chest Pain Characteristics: No chest pain Exercise History: Indeterminate Physical Disabilities: none Lung Sounds: Clear to auscultation Heart Sounds: Regular Stress Test Details Test: Pharmacologic stress was paired with low level exercise. Reason for pharmacologic stress test: pacemaker. Nuclear Acquisition: Rest Tc-99m/Stress Tc-99m 1 day Rest Isotope: Tc-99m Sestamibi. Dose: 10.0 Date: 09/06/2024 Injection Time: 0915 Stress Isotope: Tc-99m Sestamibi. Dose: 30.0 Date: 09/06/2024 Injection Time: 1057 HR Resting HR Supine: 61 bpm Max Heart Rate (APMHR): 145 bpm Resting HR Standin bpm Target HR (85% APMHR): 123 bpm Max HR Achieved: 111 bpm % of APMHR: 77 Recovery HR: 63 bpm HR response to stress: Normal HR response to stress BP Resting BP Supine: 132/72 mmHg Resting BP Standin/88 mmHg Max BP: 172/78 mmHg Recovery BP: 144/60 mmHg BP response to stress: Normal blood pressure response to stress. ECG Resting ECG: atrial paced rhythm Ectopy: T wave inversions in leads III, V6, and aVF Stress ECG: atrial paced rhythm ST Change: Downsloping ST depression Lead(s): III, V4, aVF, II, V5, V6 Arrhythmia: rare PAC Recovery ECG: atrial paced rhythm Recovery ST Change: T wave inversions Lead(s): III, II, V6, V5, V4, aVF Recovery Arrhythmia: rare PVC Patient to ER: 11:35 Reason Why: Symptomatic w/ EKG changes, ER visit recommended by Jane Chaves NP supervising Clinical Stress Symptoms: Dyspnea Angina Score: None Rate Pressure Product: [id number] Stress ECG Conclusion 1. Resting electrocardiogram showed atrial pacing and left ventricular hypertrophy with repolarizatio n abnormalities 2. Patient underwent testing using a combination of low-level exercise and pharmacologic stress with regadenoson 3. Peak heart rate achieved was 77% of maximal predicted for age 4. There were more prominent repolarization abnormalities noted at peak exercise 5. See MPI report Stress Test Summary STAGE HR BP SpO2 Symptoms NOTES Supine 61 132/72 Standing 63 146/88 1 min post Lexiscan injection 105 150/72 mod. SOB, intermittent b/l arm heaviness 3 min post Lexiscan injection 92 172/78 SOB, int. b/l arm heaviness 6 min post Lexiscan injection 76 144/60 Pt walked at a slow speed on the treadmill for 4 minutes while recieving injection of lexiscan. Pt c/ o SOB and intermittent, b/l arm heaviness during this time and during recovery. EKG showed diffuse T wave inversions at end of test as well as ST depression while patient was walking. Patient recovered and with changes noted stress testing team consulted supervising PUBLIC EMPLOYMENT MEDIATOR, EKG evaluated by cardiology PUBLIC EMPLOYMENT MEDIATOR, Jane Chaves, who stated that patient should be seen in the ED if he was still symptomatic. Pt asked about symptoms and said he was now c/o chest tightness and b/l LE heaviness, which he was not report ing immediately post test. Pt taken to the ED for further work up, report given to ED nurse and ED do ctor. MPI Conclusion Myocardial perfusion is normal. There is no ischemia or evidence of prior infarction Calculated EF is 44%. Visually EF appears greater than 50% and there are no segmental wall motion ab normalities
[2024-09-06] MEDS: Regadenoson 0.4 MG/5 ML SYR IVP (10:57)
== END 2024-09-06 01:32 ==
LOC: DI 01:12
PROVIDERS: PCP Nurse Practitioner Family; Visit Provider Internal Medicine Cardiovascular Disease
DX: I25.10 Atherosclerotic heart disease of native coronary artery without angina pectoris (principal)
CPT/HCPCS: 78452; 93016; 93018; 93017; J2785

== ENCOUNTER 2024-09-06 11:37 | Observation (INO) | payer MEDICARE, SELFPAY ==
[2024-09-06] VITALS (23 sets, daily range): BP systolic 131–186; BP diastolic 70–90; PULSE 59–68; RESP 12–20; TEMP 35.9–36.8; O2SAT 94–97
--- NOTE | 2024-09-06 11:30 | RT.EKG_ITS ---
APPROVED REPORT Exam: Resting ECG Reason for Exam: chest pain Patient Location: E HR:61 bpm ECG Measurements Heart Rate 61 AXIS WA 186 P [id number] QRSd 100 QRS 44 QT 358 T -61 QTc 361 Conclusion Atrial-paced complexes...other complexes also detected Abnormal T, consider ischemia, inferior leads...T <-0.20mV, II III aVF No STEMI
[2024-09-06 12:00] LABS: Abs Immature Grans 0.02 10^3/uL (0.0-0.06); Absolute Basophil Count 0.02 10^3/uL (0.0-0.2); Absolute Eosinophil Count 0.14 10^3/uL (0.0-0.7); Absolute Lymphocyte Count 2.72 10^3/uL (1.2-3.4); Absolute Monocyte Count 0.33 10^3/uL (0.1-0.8); Absolute Neutrophil Count 3.52 10^3/uL (1.2-6.7); Basophils % 0.3 %; Eosinophils % 2.1 %; HCT 46.7 % (40.0-50.0); HGB 15.6 g/dL (13.5-17.5); Immature Grans % 0.3 %; Lymphocytes % 40.3 %; MCH 30.1 pg (27.0-33.0); MCHC 33.4 % (32.0-36.0); MCV 90 fL (80-95); MPV 8.9 fL (8.0-11.0); Monocytes % 4.9 %; Neutrophils % 52.1 %; Platelet Count 296 10^3/uL (130-400); RBC 5.19 10^6/uL (4.36-5.78); RDW 12.3 % (11.8-14.1); RDW-SD 40.9 fL; WBC 6.75 10^3/uL (4.4-10.8)
[2024-09-06 12:22] LABS: ALT 44 U/L (16-63); AST 19 U/L (15-37); Albumin 3.7 g/dL (3.4-5.0); Alkaline Phosphatase 67 U/L (46-116); Anion Gap 4.9 mmol/L (3-11); BUN 16 mg/dL (7-18); Bilirubin, Total 0.86 mg/dL (0.2-1.0); CO2 30.1 mmol/L (21.0-32.0); CREATININE 1.2 mg/dL (0.70-1.30); Calcium 10.7 mg/dL (8.5-10.1); Chloride 105 mmol/L (98-107); Estimated GFR 63.07 (mL/min/1.73m2); Glucose 113 mg/dL (74-106); Magnesium 1.9 mg/dL (1.8-2.4); Potassium 4.1 mmol/L (3.5-5.1); Sodium 140 mmol/L (136-145); Total Protein 7.7 g/dL (6.4-8.2); Troponin I 7 ng/L (<or=76)
[2024-09-06 12:29] LABS: D-Dimer 310 ng/mlFEU (<500)
[2024-09-06] MEDS: Aspirin 81 MG CHEW 324 MG CH (12:30)
--- NOTE | 2024-09-06 12:40 | DI.RAD_ITS ---
Exam(s) XR PORTABLE CHEST AP EXAM: XR PORTABLE CHEST AP CLINICAL HISTORY: Chest pain. TECHNIQUE: 2D digital imaging was performed. COMPARISON: CR XR CHEST 2V PA LATERAL from 09/03/2022 FINDINGS: Single AP portable view. Again noted are sternotomy wires and bipolar left subclavian pacemaker. One lead tip is in the right atrium and the other is probably in the right ventricle although appears slightly different in posit ion when compared to previous. Heart size is upper normal. The mediastinum is not widened. Lungs are clear. No infiltrates nor obvious pleural effusions. No evidence of pulmonary edema. There is no pneumothorax. Regional bones unremarkable. IMPRESSION: No acute pulmonary findings on this single AP portable view of the chest. Slight different position of the right ventricular bipolar pacemaker lead although this may be due to differences in technique; the present portable image is AP and the previous nonportable image was PA and lateral. Recommend nonportable PA and lateral views when clinically possible DATA REPOSITORY: RADIATION DOSE DELIVERED:
--- NOTE | 2024-09-06 12:44 | ED.GENADUL_ITS ---
Discharge Plan Disposition Patient Disposition: Admit to [facility] Discharge Details Clinical Impression: Abnormal cardiovascular stress test Admit Date/Time: 09/06/24 14:47 Admit Provider: Carter Salgado Attending Provider: Carter Salgado Primary Care Provider: Jacquelyn Reyes ED Provider: Carter Montes [facility] General Date/Time Provider Initiated Documentation: 09/06/24 11:49 . HPI Narrative: MDM This is a normothermic and not tachycardic 73-year-old male with positive prehospital stress test for which patient will be hospitalized locally. I spoke Raghav Lemus from cardiology who advised local hospitalization. I was in touch with local nurse practitioner Jane in an attempt to have the patient's perfusion scan read more expeditiously. Nonetheless given the patient's symptoms we will keep locally for trending of troponins and final results of perfusion testing. Patient does not yet been accepted to [facility]. I signed patient out to Dr. Coronado who accepted the patient to the floor. I considered PE however the patient is not short of breath. His D-dimer was negative. Patient was chest pain-free so I did not treat with nitro. Patient received aspirin. No pain or proportion to suggest necrotizing soft tissue infection. Clear lungs and no pneumonia on chest x-ray. No tearing quality to suggest ACS. No trauma and equal breath sounds so my suspicion is low for pneumothorax. No rash to chest to suggest zoster. No history of recent emesis to suggest increased risk for esophageal rupture. Not hypotensive nor dialysis patients without tamponade. HPI This is a 73-year-old male right emergency department via wheelchair from stress testing. Patient reportedly had an abnormal stress test. He was having leg heaviness and chest pressure. He is no longer having chest pain. He has remote history of CABG 30 years ago and has had left heart catheterization within the past 5 or 10 years. He rarely drinks ethanol denies illicits. He described a heaviness in his chest. His chest pain was nonradiating. Patient was not vomiting nauseous nor having any fevers. No recent falls. Exam General: Well-appearing in no acute distress speaking in complete sentences. Head: Normocephalic, atraumatic. Eye: Extraocular eye movements intact. No conjunctival injection. No scleral icterus. Ear, nose, mouth, throat: Grossly normal inspection. Normal voice, handling secretions normally. Neck: Trachea midline. Cardiovascular: Well-perfused distal extremities. Regular rate and rhythm Respiratory: Nonlabored respiration. Clear lungs bilaterally. Gastrointestinal: Nondistended abdomen. Musculoskeletal: No edema. Moving all 4 extremities spontaneously. Skin: Normal for age and race, grossly normal temperature and turgor. No acute rash. Neurologic: Alert and appropriate, no apparent acute deficits. Psychiatric: Mood and manner are appropriate. Grooming and personal hygiene are appropriate. Related Data Home Medications ?Medication ?Instructions ?Recorded ?Confirmed aspirin 81 mg chewable tablet 81 mg PO DAILY 06/21/13 09/06/24 cholecalciferol (vitamin D3) 125 125 mcg PO DAILY 12/30/19 09/06/24 mcg (5,000 unit) tablet (Vitamin D3) nitroglycerin 0.4 mg sublingual 0.4 mg sublingual .COMPLEX #50 06/20/20 09/06/24 tablet tab-caps ibuprofen 800 mg tablet 800 mg PO PRN pain #60 tabs 01/13/23 09/06/24 famotidine 20 mg tablet 20 mg PO QHS PRN heartburn #90 tabs 09/26/23 09/06/24 sucralfate 1 gram tablet 1 g PO AC & HS PRN heartburn #80 09/26/23 09/06/24 tabs lansoprazole 30 mg capsule,delayed 30 mg PO DAILY #90 caps 05/27/24 09/06/24 release atorvastatin 80 mg tablet 80 mg PO DAILY #90 tabs 08/03/24 09/06/24 ezetimibe 10 mg tablet (Zetia) 10 mg PO DAILY #90 tabs 08/03/24 09/06/24 amlodipine 10 mg tablet 10 mg PO DAILY #90 tabs 09/02/24 09/06/24 apixaban 5 mg tablet 5 mg PO BID #10 tabs 09/02/24 09/06/24 isosorbide mononitrate 30 mg 30 mg PO DAILY #90 tabs 09/02/24 09/06/24 tablet,extended release 24 hr losartan 100 mg tablet 100 mg PO DAILY #90 tabs 09/02/24 09/06/24 Previous Rx's ?Medication ?Instructions ?Recorded nitroglycerin 0.4 mg sublingual 0.4 mg sublingual .COMPLEX #50 06/20/20 tablet tab-caps ibuprofen 800 mg tablet 800 mg PO PRN pain #60 tabs 01/13/23 famotidine 20 mg tablet 20 mg PO QHS PRN heartburn #90 tabs 09/26/23 sucralfate 1 gram tablet 1 g PO AC & HS PRN heartburn #80 09/26/23 tabs lansoprazole 30 mg capsule,delayed 30 mg PO DAILY #90 caps 05/27/24 release atorvastatin 80 mg tablet 80 mg PO DAILY #90 tabs 08/03/24 ezetimibe 10 mg tablet (Zetia) 10 mg PO DAILY #90 tabs 08/03/24 amlodipine 10 mg tablet 10 mg PO DAILY #90 tabs 09/02/24 apixaban 5 mg tablet 5 mg PO BID #10 tabs 09/02/24 isosorbide mononitrate 30 mg 30 mg PO DAILY #90 tabs 09/02/24 tablet,extended release 24 hr losartan 100 mg tablet 100 mg PO DAILY #90 tabs 09/02/24 Allergies Allergy/AdvReac Type Severity Reaction Status Date / Time metoprolol AdvReac Severe Bradycardia Verified 09/06/24 11:49 General Stated Complaint: Chest Pain [place]: 3 Course Vital Signs Vital signs: Vital Signs Pulse 62 09/06/24 11:43 Respiratory Rate 16 09/06/24 11:43 Blood Pressure 186/81 H 09/06/24 11:43 Pulse Oximetry 96 09/06/24 11:43 Pulse 62 09/06/24 11:43 Respiratory Rate 16 09/06/24 11:43 Blood Pressure 186/81 H 09/06/24 11:43 Blood Pressure Position Sitting 09/06/24 11:43 Pulse Oximetry 96 09/06/24 11:43 Pain Level 4 09/06/24 11:43 Lab/Test Results Lab/Test Results: Laboratory Tests Range/Units 09/06/24 11:50 WBC (4.4-10.8) 10^3/uL 6.75 RBC (4.36-5.78) 10^6/uL 5.19 Hgb (13.5-17.5) g/dL 15.6 Hct (40.0-50.0) % 46.7 MCV (80-95) fL 90 MCH (27.0-33.0) pg 30.1 MCHC (32.0-36.0) % 33.4 RDW (11.8-14.1) % 12.3 Plt Count (130-400) 10^3/uL 296 MPV (8.0-11.0) fL 8.9 Immature Gran % % 0.3 Neutrophils % % 52.1 Lymphocytes % % 40.3 Monocytes % % 4.9 Eosinophils % % 2.1 Basophils % % 0.3 Nucleated RBC % (0.0-0.3) % 0.0 Absolute Neutrophils (1.2-6.7) 10^3/uL 3.52 Absolute Lymphocytes (1.2-3.4) 10^3/uL 2.72 Absolute Monocytes (0.1-0.8) 10^3/uL 0.33 Absolute Eosinophils (0.0-0.7) 10^3/uL 0.14 Absolute Basophils (0.0-0.2) 10^3/uL 0.02 D-Dimer (<500) ng/mlFEU 310 Sodium (136-145) mmol/L 140 Potassium (3.5-5.1) mmol/L 4.1 Chloride (98-107) mmol/L 105 Carbon Dioxide (21.0-32.0) mmol/L 30.1 Anion Gap (3-11) mmol/L 4.9 BUN (7-18) mg/dL 16 Creatinine (0.70-1.30) mg/dL 1.2 Est GFR (CKD-EPI 2020) (mL/min/1.73m2) 63.07 Glucose (74-106) mg/dL 113 H Calcium (8.5-10.1) mg/dL 10.7 H Magnesium (1.8-2.4) mg/dL 1.9 Total Bilirubin (0.2-1.0) mg/dL 0.86 AST (15-37) U/L 19 ALT (16-63) U/L 44 Alkaline Phosphatase (46-116) U/L 67 Troponin I (<or=76) ng/L 7 Total Protein (6.4-8.2) g/dL 7.7 Albumin (3.4-5.0) g/dL 3.7 Medical Decision Making Quality:SDOH Health Related Social Needs: No Data to Display PFSH All Active Problems (Updated 09/06/24 @ 14:34 by aCrter Montes MD) Abnormal cardiovascular stress test (Acute) Small intestinal bacterial overgrowth (SIBO) (Acute) DJD (degenerative joint disease) of cervical spine (Acute) Coronary artery disease (Chronic) Atrial fibrillation (Chronic) S/p cardioversion 03/07/21 On eliquis Sick sinus syndrome (Chronic ~07/2022) S/p Dual chamber pacemaker Pacemaker (Chronic ~07/2022) Chronic anticoagulation (Chronic) Obstructive sleep apnea (Chronic) PSG 08/2020, on CPAP History of prostate cancer (Chronic ~2015) Brian score 6, s/p radical prostatectomy 2016 Essential hypertension (Chronic) Hyperlipidemia (Chronic) Bilateral carotid artery disease (Chronic) Gastroesophageal reflux disease with esophagitis (Chronic) EGD 2013 Gastritis (Chronic) Lumbar back pain with radiculopathy affecting lower extremity (Chronic) Subclinical hypothyroidism (Chronic) Hiatal hernia (Chronic) Primary osteoarthritis of left shoulder (Chronic) BPPV (benign paroxysmal positional vertigo) (Chronic) Medical History (Updated 09/06/24 @ 14:34 by Carter Montes MD) Tubular adenoma of colon On 2023 colonoscopy Adenocarcinoma of prostate (~2015) Brimhall score 6, s/p radical prostatectomy 2016 Surgical History S/P radical cystoprostatectomy (08/23/16) With bilateral total pelvic lymphadenectomy S/P colonoscopy (01/16/15) H/O umbilical hernia repair S/P cholecystectomy History of esophagogastroduodenoscopy (EGD) (04/04/14) Repeat 11/22/22 S/P CABG x 2 (04/14/97) ROSADO to LAD, JANN to RCA Family History (Updated 09/26/23 @ 13:16 by Jacquelyn Reyes NP) Mother , age 73 Heart disease Father , age 68 Heart disease Hyperlipidemia Hypertension Sister Depression Brother , age 80 Alcohol abuse Cancer of kidney Heart disease Hyperlipidemia Hypertension Brother , age 73 Depression Brother , 78 Heart disease Hyperlipidemia Hypertension Stroke Atrial fibrillation COPD (chronic obstructive pulmonary disease) Daughter Depression Maternal Grandfather No problems noted. Maternal Grandmother No problems noted. Paternal Grandfather No problems noted. Paternal Grandmother No problems noted. Brother COPD (chronic obstructive pulmonary disease) Social History Smoking/Tobacco Use Status: Never Smoking risk assessment performed?: Yes Alcohol Intake: current Alcohol Intake frequency: a few times a week Alcohol type: beer Drug use: Never Substance use type: does not use Caregiver/Support person: No Household members: spouse and children Housing: house Communication Needs: None Do you need help understanding health information?: Never Pets and animals: Yes Pets and animals: dog(s) Sexually active: No Do you think of yourself as: straight/heterosexual Current gender identity: male What is your relationship status?: How often do you talk on the phone with friends or family?: decline to answer How often do you get together with friends or relatives?: decline to answer How often do you attend restorationism or jewish services?: decline to answer Do you belong to any clubs or organized social groups?: decline to answer Panel score (0-1 are the most socially isolated patients): 1 What type of physical activity do you participate in: walking Duration: 45-60 minutes/day Frequency: daily [place]/Anabaptist: None Special [place] needs: No Seatbelt use: always Drive intox 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 local driver: No Do you feel safe at home: Yes Do you feel safe in your relationship?: Yes
[2024-09-06 13:17] LABS: Troponin I 7 ng/L (<or=76)
--- NOTE | 2024-09-06 16:36 | W.PC.ACHO ---
Registration Status: Primary Language: Preferred Language: ED Information & Data Chief Complaint Chest Pain 09/06/24 13:32 Triage Note patient arrives via 09/06/24 11:43 wheelchair after having a stress test this am. Pt had received the medication and then was noted to have leg heaviness and chest pressure 4/10. Monitor revealed ST depression Medical / Surgical History (Last Updated 03/12/24 @ 12:35 by Jacquelyn Reyes NP) Tubular adenoma of colon Adenocarcinoma of prostate (~2015) (Last Reviewed 12/24/22 @ 13:18 by TAHMINA De Los Santos) S/P radical cystoprostatectomy (08/23/16) S/P colonoscopy (01/16/15) H/O umbilical hernia repair S/P cholecystectomy History of esophagogastroduodenoscopy (EGD) (04/04/14) S/P CABG x 2 (04/14/97) Most Recent Vital Signs Temperature 36.8 C 09/06/24 13:46 Temperature Source Oral 09/06/24 11:43 Pulse 59 L 09/06/24 14:16 Pulse 60 09/06/24 14:16 Respiratory Rate 17 09/06/24 14:16 Blood Pressure 165/86 H 09/06/24 14:16 Blood Pressure Mean 110 09/06/24 14:16 Blood Pressure Position Sitting 09/06/24 11:43 Pulse Oximetry 96 09/06/24 11:43 Pain Level 0 09/06/24 16:26 Allergies metoprolol Adverse Reaction (Severe, Verified 09/06/24 11:49) Bradycardia Precautions Isolation Standard precaution 09/06/24 11:46 IV IV Catheter Type [Right Saline Lock Antecubital] IV Catheter Type [Left Saline Lock Antecubital] IV Catheter Gauge [Right 18 Antecubital] IV Catheter Gauge [Left 22 Antecubital] Diet Orders Category Date Time Status Heart Healthy Eating [DIET] Nutrition 09/06/24 Dinner Active Diagnostics 09/06/24 09/06/24 09/06/24 Range/Units 14:49 12:48 11:50 WBC 6.75 (4.4-10.8) 10^3/uL RBC 5.19 (4.36-5.78) 10^6/uL Hgb 15.6 (13.5-17.5) g/dL Hct 46.7 (40.0-50.0) % MCV 90 (80-95) fL MCH 30.1 (27.0-33.0) pg MCHC 33.4 (32.0-36.0) % RDW 12.3 (11.8-14.1) % Plt Count 296 (130-400) 10^3/uL MPV 8.9 (8.0-11.0) fL Immature Gran % 0.3 % Neutrophils % 52.1 % Lymphocytes % 40.3 % Monocytes % 4.9 % Eosinophils % 2.1 % Basophils % 0.3 % Nucleated RBC % 0.0 (0.0-0.3) % Absolute Neutrophils 3.52 (1.2-6.7) 10^3/uL Absolute Lymphocytes 2.72 (1.2-3.4) 10^3/uL Absolute Monocytes 0.33 (0.1-0.8) 10^3/uL Absolute Eosinophils 0.14 (0.0-0.7) 10^3/uL Absolute Basophils 0.02 (0.0-0.2) 10^3/uL D-Dimer 310 (<500) ng/mlFEU Sodium 140 (136-145) mmol/L Potassium 4.1 (3.5-5.1) mmol/L Chloride 105 (98-107) mmol/L Carbon Dioxide 30.1 (21.0-32.0) mmol/L Anion Gap 4.9 (3-11) mmol/L BUN 16 (7-18) mg/dL Creatinine 1.2 (0.70-1.30) mg/dL Est GFR (CKD-EPI 2020) 63.07 (mL/min/1.73m2) Glucose 113 H (74-106) mg/dL Calcium 10.7 H (8.5-10.1) mg/dL Magnesium 1.9 (1.8-2.4) mg/dL Total Bilirubin 0.86 (0.2-1.0) mg/dL AST 19 (15-37) U/L ALT 44 (16-63) U/L Alkaline Phosphatase 67 (46-116) U/L Troponin I Cancelled 7 7 (<or=76) ng/L Total Protein 7.7 (6.4-8.2) g/dL Albumin 3.7 (3.4-5.0) g/dL Intake and Output - 24 Hour Total 09/06/24 11:37 thru 09/06/24 11:43 Weight 98 kg Falls Risk Assessment History of Falls No History 09/06/24 13:44 Fall Total Score 0 09/06/24 13:44 Level of Risk Standard/Low Risk 09/06/24 13:44 Problems (Last Updated 03/12/24 @ 12:35 by Jacquelyn Reyes NP) Abnormal cardiovascular stress test (Acute) v v v v v v v v v Sending and/or Receiving Nurses: Please use comment section below to note any information pertinent to the patient hand-off not included above. Information / Comments: Admitted following an out patient stress test. ST depressions. 18g RAC and 22g LAC. AxOx4, Lungs:clear, GI: Cont, : Cont, Skin: CDI. Admitting as OBS. Report received from:HARRY Martell (ED) 14:25
--- NOTE | 2024-09-06 17:56 | W.PM.HP.N ---
Date of service: 09/06/24 Time of Service: 17:56 Assessment and Plan Assessment and plan (1) Abnormal cardiovascular stress test: Status: Acute Assessment and plan: Resolved heaviness in his chest and his legs Troponins negative Cardiology consult 09/07 Telemetry Observation Nitroglycerin PRN Oxygen PRN Pain mgt (2) Pacemaker: Status: Chronic Assessment and plan: Placed in 2022 for PAF [place] [facility] [place] 11 [place] (3) Chronic anticoagulation: Status: Chronic Assessment and plan: Continue apixaban History of Present Illness History of Present Illness Chief Complaint: Chest pain during cardiac stress test Narrative: This is a 73-year-old male who presented to the emergency department by wheelchair following a stress test that was reportedly abnormal. The patient describes a sensation of heaviness in his chest and his legs but no longer reported chest pain at the time of evaluation. He has a significant medical history, including coronary artery bypass grafting 30 years ago and a left heart catheterization performed within the past 5 to 10 years, pacemaker (2022), hypertension, GERD, hyperlipidemia, prostate cancer, and obstructive sleep apnea (CPAP), The patient does not drink alcohol regularly and denies illicit drug use. The heaviness in the chest was non-radiating, and he did not experience any associated nausea, vomiting, or fevers. The patient denies recent falls. On further inquiry, there were no other symptoms such as shortness of breath and there was no associated trauma or signs of soft tissue infection. After experiencing paroxysmal atrial fibrillation, symptomatic bradycardia, and subsequent placement of a dual-chamber pacemaker placement at [facility] 07/2022.. According to the [place] [facility] [place], the patient has reported chest pain since May 2024, localized to the same area as the pain prior to coronary artery bypass grafting surgery. The pain is described as dull, lasting 2-3 minutes, and is always associated with heavy exertion or lifting, such as stacking pellets or bringing his home from the hospital. Notably, the patient denies any chest pain at rest. A stress test was performed today to evaluate the patient?s symptoms. During the test, the patient experienced chest pain and some EKG changes, leading to the premature cessation of the study. As a result, the patient was sent to the emergency department for further evaluation. Labs in the ED: unremarkable; troponin x 2 negative CXR: No acute pulmonary findings on this single AP portable view of the chest. Slight different position of the right ventricular bipolar pacemaker lead although this may be due to differences in technique; the present portable image is AP and the previous nonportable image was PA and lateral. Recommend nonportable PA and lateral views when clinically possible Cardiology is unable to see the patient today and he is placed on the medical floor for observation and further testing. Patient is in agreement with the plan of care. Patient is a full code. Review of Systems All systems reviewed & are unremarkable except as noted in HPI and below PFSH All Active Problems (Updated 09/06/24 @ 14:34 by Carter Montes MD) Abnormal cardiovascular stress test (Acute) Small intestinal bacterial overgrowth (SIBO) (Acute) DJD (degenerative joint disease) of cervical spine (Acute) Coronary artery disease (Chronic) Atrial fibrillation (Chronic) S/p cardioversion 03/07/21 On eliquis Sick sinus syndrome (Chronic ~07/2022) S/p Dual chamber pacemaker Pacemaker (Chronic ~07/2022) Chronic anticoagulation (Chronic) Obstructive sleep apnea (Chronic) PSG 08/2020, on CPAP History of prostate cancer (Chronic ~2015) [place] score 6, s/p radical prostatectomy 2016 Essential hypertension (Chronic) Hyperlipidemia (Chronic) Bilateral carotid artery disease (Chronic) Gastroesophageal reflux disease with esophagitis (Chronic) EGD 2013 Gastritis (Chronic) Lumbar back pain with radiculopathy affecting lower extremity (Chronic) Subclinical hypothyroidism (Chronic) Hiatal hernia (Chronic) Primary osteoarthritis of left shoulder (Chronic) BPPV (benign paroxysmal positional vertigo) (Chronic) Medical History (Updated 09/06/24 @ 14:34 by Carter Montes MD) Tubular adenoma of colon On 2023 colonoscopy Adenocarcinoma of prostate (~2015) [place] score 6, s/p radical prostatectomy 2017 Surgical History S/P radical cystoprostatectomy (08/23/16) With bilateral total pelvic lymphadenectomy S/P colonoscopy (01/16/15) H/O umbilical hernia repair S/P cholecystectomy History of esophagogastroduodenoscopy (EGD) (04/04/14) Repeat 11/22/22 S/P CABG x 2 (04/14/97) ROSADO to LAD, JANN to RCA Family History (Updated 09/26/23 @ 13:16 by Jacquelyn Reyes NP) Mother , age 73 Heart disease Father , age 68 Heart disease Hyperlipidemia Hypertension Sister Depression Brother , age 80 Alcohol abuse Cancer of kidney Heart disease Hyperlipidemia Hypertension Brother , age 73 Depression Brother , 78 Heart disease Hyperlipidemia Hypertension Stroke Atrial fibrillation COPD (chronic obstructive pulmonary disease) Daughter Depression Maternal Grandfather No problems noted. Maternal Grandmother No problems noted. Paternal Grandfather No problems noted. Paternal Grandmother No problems noted. Brother COPD (chronic obstructive pulmonary disease) Social History Smoking/Tobacco Use Status: Never Smoking risk assessment performed?: Yes Alcohol Intake: current Alcohol Intake frequency: a few times a week Alcohol type: beer Drug use: Never Substance use type: does not use Caregiver/Support person: No Household members: spouse and children Housing: house Communication Needs: None Do you need help understanding health information?: Never Pets and animals: Yes Pets and animals: dog(s) Sexually active: No Do you think of yourself as: straight/heterosexual Current gender identity: male What is your relationship status?: How often do you talk on the phone with friends or family?: decline to answer How often do you get together with friends or relatives?: decline to answer How often do you attend catholic or oriental orthodox services?: decline to answer Do you belong to any clubs or organized social groups?: decline to answer Panel score (0-1 are the most socially isolated patients): 1 What type of physical activity do you participate in: walking Duration: 45-60 minutes/day Frequency: daily Sydney/Scientologist: None Special sydney needs: No Seatbelt use: always Drive intox 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: No Do you feel safe at home: Yes Do you feel safe in your relationship?: Yes Meds Allergies and Home Medications Allergies Allergy/AdvReac Type Severity Reaction Status Date / Time metoprolol AdvReac Severe Bradycardia Verified 09/06/24 11:49 Home Medications ?Medication ?Instructions ?Recorded ?Confirmed ?Type aspirin 81 mg chewable tablet 81 mg PO DAILY 06/21/13 09/06/24 History cholecalciferol (vitamin D3) 125 125 mcg PO DAILY 12/30/19 09/06/24 History mcg (5,000 unit) tablet (Vitamin D3) nitroglycerin 0.4 mg sublingual 0.4 mg sublingual .COMPLEX #50 06/20/20 09/06/24 Rx tablet tab-caps ibuprofen 800 mg tablet 800 mg PO PRN pain #60 tabs 01/13/23 09/06/24 Rx famotidine 20 mg tablet 20 mg PO QHS PRN heartburn #90 tabs 09/26/23 09/06/24 Rx sucralfate 1 gram tablet 1 g PO AC & HS PRN heartburn #80 09/26/23 09/06/24 Rx tabs lansoprazole 30 mg capsule,delayed 30 mg PO DAILY #90 caps 05/27/24 09/06/24 Rx release atorvastatin 80 mg tablet 80 mg PO DAILY #90 tabs 08/03/24 09/06/24 Rx ezetimibe 10 mg tablet (Zetia) 10 mg PO DAILY #90 tabs 08/03/24 09/06/24 Rx amlodipine 10 mg tablet 10 mg PO DAILY #90 tabs 09/02/24 09/06/24 Rx apixaban 5 mg tablet 5 mg PO BID #10 tabs 09/02/24 09/06/24 Rx isosorbide mononitrate 30 mg 30 mg PO DAILY #90 tabs 09/02/24 09/06/24 Rx tablet,extended release 24 hr losartan 100 mg tablet 100 mg PO DAILY #90 tabs 09/02/24 09/06/24 Rx Exam Const General: cooperative, healthy appearing, comfortable, no acute distress, well developed and well groomed Nutritional Appearance: average body habitus Orientation: alert and oriented x3 Chest Chest: normal inspection of the chest and normal palpation of entire chest wall Resp Effort & Inspection: normal respiratory effort and able to speak in complete sentences Cardio Jugular venous pressure: no JVD Rate: regular rate Rhythm: regular rhythm Other: paced Extrem Right upper extremity: normal to inspection Results Labs 09/06/24 11:50 09/06/24 11:50 Labs: Laboratory Results - last 24 hr 09/06/24 09/06/24 09/06/24 11:50 12:48 14:49 WBC 6.75 RBC 5.19 Hgb 15.6 Hct 46.7 MCV 90 MCH 30.1 MCHC 33.4 RDW 12.3 Plt Count 296 MPV 8.9 Immature Gran % 0.3 Neutrophils % 52.1 Lymphocytes % 40.3 Monocytes % 4.9 Eosinophils % 2.1 Basophils % 0.3 Nucleated RBC % 0.0 Absolute Neutrophils 3.52 Absolute Lymphocytes 2.72 Absolute Monocytes 0.33 Absolute Eosinophils 0.14 Absolute Basophils 0.02 D-Dimer 310 Sodium 140 Potassium 4.1 Chloride 105 Carbon Dioxide 30.1 Anion Gap 4.9 BUN 16 Creatinine 1.2 Est GFR (CKD-EPI 2020) 63.07 Glucose 113 H Calcium 10.7 H Magnesium 1.9 Total Bilirubin 0.86 AST 19 ALT 44 Alkaline Phosphatase 67 Troponin I 7 7 Cancelled Total Protein 7.7 Albumin 3.7 Last Vital Signs Temp 36.7 C 09/06/24 16:51 Pulse 68 09/06/24 16:51 Resp 18 09/06/24 16:51 BP 160/89 H 09/06/24 16:51 Pulse Ox 97 09/06/24 16:51 PAWSS Have you Been Recently Intoxicated or Drunk Within the Last 30 days?: No Have you Ever Experienced Previous Episodes of Alcohol Withdrawal?: No Have you ever Experienced Withdrawal Seizures?: No Have you ever Experienced Delirium Tremens(DT)s?: No Have you ever undergone Alcohol Rehabilitation Treatment (i.e, inpt ot outpatient treatment programs)?: No Have you ever Experienced Blackouts?: No Have you ever Combined Alcohol with other Downers within the last 90 days?: No Have you ever Combined Alcohol with any other Substance of Abuse during the last 90 days?: No Positive Blood Alcohol level on Presentation? [PCS.BAL]: No Evidence of Increased Autonomic Activity (i.e. HR>120, tremor, sweating, agitation, nausea)?: No Result: 0 Time Spent Time spent with Patient: 40-54 minutes Time was spent: preparing to see the patient(eg.review tests), obtaining and/or reviewing separately otained hiistory, ordering medications,tests, procedures, referring, communicating with other health menagerie caretaker, indepentently interpreting results, counseling the patient and care coordination
[2024-09-06] MEDS: Normal Saline Flush 10 ML SYR IVP (20:07)
[2024-09-06] MEDS: Apixaban 5 MG TAB PO (20:07)
[2024-09-07 03:27] VITALS: BP 138/69; PULSE 61; RESP 16; TEMP 36.4; O2SAT 95
[2024-09-07 06:41] LABS: Abs Immature Grans 0.01 10^3/uL (0.0-0.06); Absolute Basophil Count 0.04 10^3/uL (0.0-0.2); Absolute Eosinophil Count 0.17 10^3/uL (0.0-0.7); Absolute Lymphocyte Count 2.16 10^3/uL (1.2-3.4); Absolute Monocyte Count 0.32 10^3/uL (0.1-0.8); Absolute Neutrophil Count 3.25 10^3/uL (1.2-6.7); Basophils % 0.7 %; Eosinophils % 2.9 %; HCT 44.5 % (40.0-50.0); HGB 14.9 g/dL (13.5-17.5); Immature Grans % 0.2 %; Lymphocytes % 36.3 %; MCH 29.5 pg (27.0-33.0); MCHC 33.5 % (32.0-36.0); MCV 88 fL (80-95); MPV 9.1 fL (8.0-11.0); Monocytes % 5.4 %; Neutrophils % 54.5 %; Platelet Count 283 10^3/uL (130-400); RBC 5.05 10^6/uL (4.36-5.78); RDW 12.6 % (11.8-14.1); RDW-SD 40.3 fL; WBC 5.95 10^3/uL (4.4-10.8)
[2024-09-07 07:01] LABS: Anion Gap 3.6 mmol/L (3-11); BUN 14 mg/dL (7-18); CO2 29.4 mmol/L (21.0-32.0); Calcium 10.2 mg/dL (8.5-10.1); Chloride 107 mmol/L (98-107); Estimated GFR 78.49 (mL/min/1.73m2); Glucose 100 mg/dL (74-106); Potassium 4.2 mmol/L (3.5-5.1); Sodium 140 mmol/L (136-145)
--- NOTE | 2024-09-07 09:03 | CCONE_ITS ---
Date of service: 09/07/24 Time of Service: 09:03 Assessment and Plan Assessment and plan (1) S/P CABG x 2: Assessment and plan: Patient has known coronary artery disease. He has atypical chest pain. It is not present with activity, only following exertion. It would be reasonable to send him to [facility] for an outpatient cardiac catheterization. Patient and his are in agreement. I think today he could be discharged to home. He should be followed in clinic moving forward (2) Atrial fibrillation: Status: Chronic History of Present Illness History of Present Illness Chief Complaint: Coronary artery disease Narrative: This is a 73-year-old man who has known coronary artery disease. He had bypass surgery done remotely, 1992 or 1993. He is status post pacemaker implantation and is followed intermittently by TAHMINA Harmon at [facility] cardiology. He recently saw the provider and described episodes of chest pain. The chest pain occurs after he exerts himself, not during. He describes it as sharp. It is reminiscent of his symptoms prior to his prior cardiac surgery. It lasts anywhere from a few seconds to maybe 2 minutes. Because of the symptoms he had a myocardial perfusion imaging study ordered, which was performed yesterday. Patient reports after he walked on the treadmill his legs felt like lead and then he developed vague chest tightness. He was referred to the emergency room where cardiac enzymes were negative. He was admitted overnight. Myocardial perfusion portion of the study has been normal. There is no evidence of any significant myocardial ischemia nor prior infarction. Gated study showed normal wall motion. Patient currently has no symptoms. He is a moderately good historian Review of Systems Cardiovascular Cardiovascular: Reports as per HPI, Reports chest pain at rest, Denies chest pain with activity, Denies radiating jaw, neck or arm pain and Denies palpitations Endocrine Endocrine: Denies palpitations PFSH All Active Problems (Updated 09/07/24 @ 09:07 by Frannie Cedillo MD) Small intestinal bacterial overgrowth (SIBO) (Acute) DJD (degenerative joint disease) of cervical spine (Acute) Coronary artery disease (Chronic) Atrial fibrillation (Chronic) S/p cardioversion 03/07/21 On eliquis Sick sinus syndrome (Chronic ~07/2022) S/p Dual chamber pacemaker Pacemaker (Chronic ~07/2022) Chronic anticoagulation (Chronic) Obstructive sleep apnea (Chronic) PSG 08/2020, on CPAP History of prostate cancer (Chronic ~2015) [place] score 6, s/p radical prostatectomy 2016 Essential hypertension (Chronic) Hyperlipidemia (Chronic) Bilateral carotid artery disease (Chronic) Gastroesophageal reflux disease with esophagitis (Chronic) EGD 2013 Gastritis (Chronic) Lumbar back pain with radiculopathy affecting lower extremity (Chronic) Subclinical hypothyroidism (Chronic) Hiatal hernia (Chronic) Primary osteoarthritis of left shoulder (Chronic) BPPV (benign paroxysmal positional vertigo) (Chronic) Medical History (Updated 09/07/24 @ 09:07 by Frannie Cedillo MD) Tubular adenoma of colon On 2023 colonoscopy Adenocarcinoma of prostate (~2015) [place] score 6, s/p radical prostatectomy 2016 Surgical History S/P radical cystoprostatectomy (08/23/16) With bilateral total pelvic lymphadenectomy S/P colonoscopy (01/16/15) H/O umbilical hernia repair S/P cholecystectomy History of esophagogastroduodenoscopy (EGD) (04/04/14) Repeat 11/22/22 S/P CABG x 2 (04/14/97) ROSADO to LAD, JANN to RCA Family History (Updated 09/26/23 @ 13:16 by Jacquelyn Reyes NP) Mother , age 73 Heart disease Father , age 68 Heart disease Hyperlipidemia Hypertension Sister Depression Brother , age 80 Alcohol abuse Cancer of kidney Heart disease Hyperlipidemia Hypertension Brother , age 73 Depression Brother , 78 Heart disease Hyperlipidemia Hypertension Stroke Atrial fibrillation COPD (chronic obstructive pulmonary disease) Daughter Depression Maternal Grandfather No problems noted. Maternal Grandmother No problems noted. Paternal Grandfather No problems noted. Paternal Grandmother No problems noted. Brother COPD (chronic obstructive pulmonary disease) Social History Smoking/Tobacco Use Status: Never Smoking risk assessment performed?: Yes Alcohol Intake: current Alcohol Intake frequency: a few times a week Alcohol type: beer Drug use: Never Substance use type: does not use Caregiver/Support person: No Household members: spouse and children Housing: house Communication Needs: None Do you need help understanding health information?: Never Pets and animals: Yes Pets and animals: dog(s) Sexually active: No Do you think of yourself as: straight/heterosexual Current gender identity: male What is your relationship status?: How often do you talk on the phone with friends or family?: decline to answer How often do you get together with friends or relatives?: decline to answer How often do you attend taoism or worship services?: decline to answer Do you belong to any clubs or organized social groups?: decline to answer Panel score (0-1 are the most socially isolated patients): 1 What type of physical activity do you participate in: walking Duration: 45-60 minutes/day Frequency: daily Sydney/Hoahaoism: None Special sydney needs: No Seatbelt use: always Drive intox 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 vibratory pile driver: No Do you feel safe at home: Yes Do you feel safe in your relationship?: Yes Exam Const Other: Looks stated age no acute distress Results Last Vital Signs Temp 36.4 C L 09/07/24 03:27 Pulse 61 09/07/24 03:27 Resp 16 09/07/24 03:27 BP 138/69 09/07/24 03:27 Pulse Ox 95 09/07/24 03:27 Labs 09/07/24 06:24 09/07/24 06:24 Labs: Laboratory Results - last 24 hr 09/06/24 09/06/24 09/06/24 11:50 12:48 14:49 WBC 6.75 RBC 5.19 Hgb 15.6 Hct 46.7 MCV 90 MCH 30.1 MCHC 33.4 RDW 12.3 Plt Count 296 MPV 8.9 Immature Gran % 0.3 Neutrophils % 52.1 Lymphocytes % 40.3 Monocytes % 4.9 Eosinophils % 2.1 Basophils % 0.3 Nucleated RBC % 0.0 Absolute Neutrophils 3.52 Absolute Lymphocytes 2.72 Absolute Monocytes 0.33 Absolute Eosinophils 0.14 Absolute Basophils 0.02 D-Dimer 310 Sodium 140 Potassium 4.1 Chloride 105 Carbon Dioxide 30.1 Anion Gap 4.9 BUN 16 Creatinine 1.2 Est GFR (CKD-EPI 2020) 63.07 Glucose 113 H Calcium 10.7 H Magnesium 1.9 Total Bilirubin 0.86 AST 19 ALT 44 Alkaline Phosphatase 67 Troponin I 7 7 Cancelled Total Protein 7.7 Albumin 3.7 09/07/24 06:24 WBC 5.95 RBC 5.05 Hgb 14.9 Hct 44.5 MCV 88 MCH 29.5 MCHC 33.5 RDW 12.6 Plt Count 283 MPV 9.1 Immature Gran % 0.2 Neutrophils % 54.5 Lymphocytes % 36.3 Monocytes % 5.4 Eosinophils % 2.9 Basophils % 0.7 Nucleated RBC % 0.0 Absolute Neutrophils 3.25 Absolute Lymphocytes 2.16 Absolute Monocytes 0.32 Absolute Eosinophils 0.17 Absolute Basophils 0.04 D-Dimer Sodium 140 Potassium 4.2 Chloride 107 Carbon Dioxide 29.4 Anion Gap 3.6 BUN 14 Creatinine 1.0 Est GFR (CKD-EPI 2020) 78.49 Glucose 100 Calcium 10.2 H Magnesium 2.0 Total Bilirubin AST ALT Alkaline Phosphatase Troponin I Total Protein Albumin
[2024-09-07] MEDS: Ezetimibe 10 MG TAB PO (09:18)
[2024-09-07] MEDS: Atorvastatin 40 MG TAB 80 MG PO (09:18)
[2024-09-07] MEDS: Cholecalciferol (Vitamin D3) 1,000 UNIT TAB 5000 UNITS PO (09:18)
[2024-09-07] MEDS: Apixaban 5 MG TAB PO (09:19)
[2024-09-07] MEDS: Aspirin 81 MG CHEW PO (09:19)
[2024-09-07] MEDS: Normal Saline Flush 10 ML SYR IVP (09:19)
[2024-09-07] MEDS: Lansoprazole 30 MG CAPCR PO (09:19)
[2024-09-07] MEDS: amLODIPine 10 MG TAB PO (09:19)
[2024-09-07] MEDS: Isosorbide Mononitrate 30 MG TABCR PO (09:19)
[2024-09-07] MEDS: Losartan 50 MG TAB 100 MG PO (09:19)
--- NOTE | 2024-09-07 09:27 | RESPIRATORY ---
Spoke with patient about [employer] and if he had home CPAP machine with him. Pt advised he hasn't been able to use his machine as it smells funny. Pt confirmed he no longer has [employer] machine through [employer] as he had mold issues so he went and purchased his own machine online. Suggested they reach out to the company and see if there is a warranty.
[2024-09-07 10:19] VITALS: BP 154/79; PULSE 66; RESP 18; TEMP 36.8; O2SAT 96
--- NOTE | 2024-09-07 11:26 | DSE_ITS ---
Date of service: 09/07/24 Time of Service: 11:26 DS: Diagnosis Discharge Diagnosis (1) S/P CABG x 2: (2) Atrial fibrillation: Status: Chronic Discharge Plan Disposition Patient Disposition: Home Condition: Good Discharge Details Reason For Visit: chest pain Admit Date/Time: 09/06/24 14:47 Admit Provider: Jia Garrido Attending Provider: Jia Garrido Primary Care Provider: [facility] Hospital Course: The patient is a 73-year-old male with a history of coronary artery disease, status post coronary artery bypass grafting 30 years ago, and more recently, a dual-chamber pacemaker implantation in July 2022. He presented to the emergency department after experiencing chest discomfort following a treadmill stress test. The chest pain was described as non-radiating, dull in nature, and localized to the same area as the pain prior to his CABG surgery. The pain was associated with exertion (e.g., stacking pellets or helping his ), lasting 2-3 minutes, and did not occur at rest. On further evaluation, the patient denied nausea, vomiting, shortness of breath, or any signs of infection. He reported no recent falls or significant trauma. His prior medical history includes hypertension, GERD, hyperlipidemia, obstructive sleep apnea (CPAP), prostate cancer, and a pacemaker for paroxysmal atrial fibrillation and symptomatic bradycardia. Notably, he had no recent alcohol consumption and denied illicit drug use. The treadmill stress test performed prior to arrival was halted due to chest pain and EKG changes. Cardiac enzymes (troponin x2) were negative. A chest X-ray revealed no acute pulmonary findings. The right ventricular pacemaker lead appeared slightly altered in position, likely due to imaging differences (AP vs. PA view). The patient was admitted to the medical floor for observation, pending further evaluation. Assessment: Cardiology consult: * Coronary Artery Disease * The patient has a known history of coronary artery disease, including CABG 30 years ago. * Stress test results were inconclusive, but the patient?s symptoms were atypical for acute myocardial ischemia, occurring only with exertion. * A normal myocardial perfusion study yesterday did not show significant ischemia or prior infarction. * Based on his clinical presentation and history, it is reasonable to refer the patient for outpatient cardiac catheterization at [facility] for further assessment. * Atrial Fibrillation * Chronic atrial fibrillation, status post dual-chamber pacemaker implantation in 2022. * No recent episodes of atrial fibrillation during hospitalization. Plan: * Cardiology Follow-up: * Outpatient referral for cardiac catheterization at [facility] for further evaluation of coronary artery disease. * Continue monitoring for any further chest pain or other symptoms of ischemia. * Observation: * No acute changes noted during hospitalization. * Discharge Instructions: * The patient is stable for discharge with instructions to follow up with cardiology at [facility]. * Patient and his are in agreement with this plan. * They are instructed to contact their primary care provider or return to the emergency department if symptoms worsen or new symptoms arise. * Code Status: Full code. Home Meds and New Rx's Prescriptions: Continued cholecalciferol (vitamin D3) [Vitamin D3] 125 mcg (5,000 unit) tablet 125 mcg PO DAILY ibuprofen 800 mg tablet 800 mg PO PRN Qty: 60 1RF Rx Instructions: Take one daily if needed. Do not exceed 1 tablet daily. sucralfate 1 gram tablet 1 g PO AC & HS PRN (Reason: heartburn) Qty: 80 2RF famotidine 20 mg tablet 20 mg PO QHS PRN (Reason: heartburn) Qty: 90 3RF lansoprazole 30 mg capsule,delayed release(DR/EC) 30 mg PO DAILY Qty: 90 3RF nitroglycerin 0.4 mg tablet, sublingual 0.4 mg Sublingual .COMPLEX MDD 3 tab Qty: 50 2RF Rx Instructions: 0.4 mg Sublingual x 3 prn chest pain. If no relief go to ED ; atorvastatin 80 mg tablet 80 mg PO DAILY Qty: 90 3RF ezetimibe [Zetia] 10 mg tablet 10 mg PO DAILY Qty: 90 3RF apixaban 5 mg tablet 5 mg PO BID Qty: 10 0RF amlodipine 10 mg tablet 10 mg PO DAILY Qty: 90 3RF Rx Instructions: Take 1 tablet daily isosorbide mononitrate 30 mg tablet extended release 24 hr 30 mg PO DAILY Qty: 90 3RF losartan 100 mg tablet 100 mg PO DAILY Qty: 90 3RF aspirin 81 MG tablet,chewable 81 mg PO DAILY Patient Comments: States he takes two. Discharge Instructions Instructions: Chest pain - Discharge instructions Additional Instructions: [place] [facility] regarding outpatient cardiac catheterization. Continue home medications. Stand Alone Forms: Nursing Discharge Form Referrals: Jacquelyn Reyes NP [Primary Care Provider] - 09/22/24 9:00 am Frannie Cedillo MD [ [facility] STAFF PHYSICIAN] - (We have faxed referral to office, they should call you, but feel free to call them if you have not heard from them. ) Activity:: Activity as Tolerated Equipment/Supplies:: No Equipment Needed Diet:: As Tolerated Discharge Orders Discharge Orders: Discharge Order (Routine); Ordered 09/07/24 Ordered By: Jia Garrido Discharge Data Discharge Date/Time-TO BE ENTERED AT DEPARTURE: 09/07/24 12:33 DS: Summary Time Spent with Patient providing and/or coordinating discharge services: Greater than 30 minutes Status at Discharge Functional status at discharge: independent ambulation Overall status at discharge: patient is back to baseline Mental Status: mental status grossly normal Speech and Movement: speech and movement normal Mood: congruent mood Affect: normal affect Quality:SDOH Health Related Social Needs: Health related social needs material hardship(utilitie s) (Z59.12) Exam Const General: cooperative, healthy appearing, comfortable, no acute distress, well developed and well groomed Nutritional Appearance: average body habitus Orientation: alert and oriented x3 Chest Chest: normal inspection of the chest and normal palpation of entire chest wall Resp Effort & Inspection: normal respiratory effort and able to speak in complete sentences Cardio Jugular venous pressure: no JVD Rate: regular rate Rhythm: regular rhythm Other: paced Extrem Right upper extremity: normal to inspection Psych Mental Status: mental status grossly normal Speech and Movement: speech and movement normal Mood: congruent mood Affect: normal affect DS: Data Vitals/I&O Vitals and I&O: Vital Signs Temperature 36.8 C 09/07/24 10:19 Temperature Source Temporal Artery Scan 09/07/24 10:19 Pulse 66 09/07/24 10:19 Pulse 60 09/06/24 14:16 Respiratory Rate 18 09/07/24 10:19 Respiratory Effort Normal 09/06/24 16:56 Respiratory Depth Normal 09/06/24 16:56 Respiratory Pattern Normal 09/06/24 16:56 Blood Pressure 154/79 H 09/07/24 10:19 Blood Pressure Mean 110 09/06/24 14:16 Blood Pressure Position Sitting 09/06/24 11:43 Pulse Oximetry 96 09/07/24 10:19 Oxygen Delivery Method Room Air 09/07/24 10:19 Oxygen Flow Rate 0 09/07/24 10:19 Pain Level 0 09/07/24 03:27 Intake & Output 09/06/24 09/06/24 09/07/24 11:59 23:59 11:59 Intake Total 110 / 110 Balance 110 / 110 Weight 98 kg 91.172 kg 90.2 kg Intake: IV Oral 100 / 100 Other: Urine Color Yellow Yellow Urine Appearance Clear Clear Urine Odor Normal Normal Comment voided x1 Data Completed and Pending Labs on day of discharge: Labs from last 24 hours 09/07/24 09/06/24 09/06/24 06:24 14:49 12:48 WBC 5.95 RBC 5.05 Hgb 14.9 Hct 44.5 MCV 88 MCH 29.5 MCHC 33.5 RDW 12.6 Plt Count 283 MPV 9.1 Immature Gran % 0.2 Neutrophils % 54.5 Lymphocytes % 36.3 Monocytes % 5.4 Eosinophils % 2.9 Basophils % 0.7 Nucleated RBC % 0.0 Absolute Neutrophils 3.25 Absolute Lymphocytes 2.16 Absolute Monocytes 0.32 Absolute Eosinophils 0.17 Absolute Basophils 0.04 D-Dimer Sodium 140 Potassium 4.2 Chloride 107 Carbon Dioxide 29.4 Anion Gap 3.6 BUN 14 Creatinine 1.0 Est GFR (CKD-EPI 2020) 78.49 Glucose 100 Calcium 10.2 H Magnesium 2.0 Total Bilirubin AST ALT Alkaline Phosphatase Troponin I Cancelled 7 Total Protein Albumin 09/06/24 11:50 WBC 6.75 RBC 5.19 Hgb 15.6 Hct 46.7 MCV 90 MCH 30.1 MCHC 33.4 RDW 12.3 Plt Count 296 MPV 8.9 Immature Gran % 0.3 Neutrophils % 52.1 Lymphocytes % 40.3 Monocytes % 4.9 Eosinophils % 2.1 Basophils % 0.3 Nucleated RBC % 0.0 Absolute Neutrophils 3.52 Absolute Lymphocytes 2.72 Absolute Monocytes 0.33 Absolute Eosinophils 0.14 Absolute Basophils 0.02 D-Dimer 310 Sodium 140 Potassium 4.1 Chloride 105 Carbon Dioxide 30.1 Anion Gap 4.9 BUN 16 Creatinine 1.2 Est GFR (CKD-EPI 2020) 63.07 Glucose 113 H Calcium 10.7 H Magnesium 1.9 Total Bilirubin 0.86 AST 19 ALT 44 Alkaline Phosphatase 67 Troponin I 7 Total Protein 7.7 Albumin 3.7 PFSH All Active Problems (Updated 09/07/24 @ 13:13 by GAGE ORTEGA) Abnormal cardiovascular stress test (Acute) Small intestinal bacterial overgrowth (SIBO) (Acute) DJD (degenerative joint disease) of cervical spine (Acute) Coronary artery disease (Chronic) Atrial fibrillation (Chronic) S/p cardioversion 03/07/21 On eliquis Sick sinus syndrome (Chronic ~07/2022) S/p Dual chamber pacemaker Pacemaker (Chronic ~07/2022) Chronic anticoagulation (Chronic) Obstructive sleep apnea (Chronic) PSG 08/2020, on CPAP History of prostate cancer (Chronic ~2015) [place] score 6, s/p radical prostatectomy 2016 Essential hypertension (Chronic) Hyperlipidemia (Chronic) Bilateral carotid artery disease (Chronic) Gastroesophageal reflux disease with esophagitis (Chronic) EGD 2013 Gastritis (Chronic) Lumbar back pain with radiculopathy affecting lower extremity (Chronic) Subclinical hypothyroidism (Chronic) Hiatal hernia (Chronic) Primary osteoarthritis of left shoulder (Chronic) BPPV (benign paroxysmal positional vertigo) (Chronic) Medical History (Updated 09/07/24 @ 13:13 by GAGE ORTEGA) Tubular adenoma of colon On 2023 colonoscopy Adenocarcinoma of prostate (~2015) [place] score 6, s/p radical prostatectomy 2016 Surgical History S/P radical cystoprostatectomy (08/23/16) With bilateral total pelvic lymphadenectomy S/P colonoscopy (01/16/15) H/O umbilical hernia repair S/P cholecystectomy History of esophagogastroduodenoscopy (EGD) (04/04/14) Repeat 11/22/22 S/P CABG x 2 (04/14/97) ROSADO to LAD, JANN to RCA Family History (Updated 09/26/23 @ 13:16 by Jacquelyn Reyes NP) Mother , age 73 Heart disease Father , age 68 Heart disease Hyperlipidemia Hypertension Sister Depression Brother , age 80 Alcohol abuse Cancer of kidney Heart disease Hyperlipidemia Hypertension Brother , age 73 Depression Brother , 78 Heart disease Hyperlipidemia Hypertension Stroke Atrial fibrillation COPD (chronic obstructive pulmonary disease) Daughter Depression Maternal Grandfather No problems noted. Maternal Grandmother No problems noted. Paternal Grandfather No problems noted. Paternal Grandmother No problems noted. Brother COPD (chronic obstructive pulmonary disease) Social History Smoking/Tobacco Use Status: Never Smoking risk assessment performed?: Yes Alcohol Intake: current Alcohol Intake frequency: a few times a week Alcohol type: beer Drug use: Never Substance use type: does not use Caregiver/Support person: No Household members: spouse and children Housing: house Communication Needs: None Do you need help understanding health information?: Never Pets and animals: Yes Pets and animals: dog(s) Sexually active: No Do you think of yourself as: straight/heterosexual Current gender identity: male What is your relationship status?: How often do you talk on the phone with friends or family?: decline to answer How often do you get together with friends or relatives?: decline to answer How often do you attend episcopal or latter day services?: decline to answer Do you belong to any clubs or organized social groups?: decline to answer Panel score (0-1 are the most socially isolated patients): 1 What type of physical activity do you participate in: walking Duration: 45-60 minutes/day Frequency: daily [place]/Quaker: None Special sydney needs: No Seatbelt use: always Drive 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
--- NOTE | 2024-09-07 13:53 | PDOC.CMPRO ---
Date of service: 09/07/24 Time of Service: 13:54 Care Management Progress Note Progress Note Text Progress Note Text: Saúl was admitted yesterday with chest pain following an abnormal stress test. His chest pain resolved spontaneously and his troponins were negative. He will be scheduled for an outpatient Echocardiogram and will follow up with his PCP and cardiologists. Saúl was discharged with no new services and was transported by his family. Social Determinants of Health Screening Social Determinants of Health last assessed: 09/07/24 Will the Patient Participate in the Screening?: Declined to provide Do you worry about having a steady place to live?: choose not to answer Problems where you live: no known problems In the past 12 months, have you had to go without electric, gas, oil or water in your home?: choose not to answer Have you or anyone in your house had to go without enough food to eat?: choose not to answer Has lack of transportation kept you from medical appointments or from doing things needed for daily living?: choose not to answer Has anyone in your life made you feel unsafe or unsupported?: choose not to answer How hard is it for you to pay for the very basics like food, housing, medical care, and heating? Would you say it is:: Not hard at all Do you want help finding or keeping work or a job?: I do not need or want help If for any reason you need help with day-to-day activities such as bathing, preparing meals, shopping, managing finances, etc., do you get the help you need?: I don?t need any help How often do you feel lonely or isolated from those around you?: Never Do you speak a language other than Sen[place]e at home?: No Does the patient want assistance with any of the above?: No Social Determinants of Health Comments([facility] Details): Patient refused to answer. Health Related Social Needs Health related social needs: material hardship(utilities) (Z59.12)
== END 2024-09-07 12:33 | disposition home or self-care (01) ==
LOC: ER 16:07 → MS 16:33
PROVIDERS: Admitting Provider Nurse Practitioner Family; Emergency Provider Emergency Medicine; PCP Nurse Practitioner Family; Visit Provider Nurse Practitioner Family
DX: R94.39 Abnormal result of other cardiovascular function study (principal); R07.89 Other chest pain; I25.10 Atherosclerotic heart disease of native coronary artery without angina pectoris; I48.0 Paroxysmal atrial fibrillation; Z95.1 Presence of aortocoronary bypass graft; Z95.0 Presence of cardiac pacemaker; I49.5 Sick sinus syndrome; Z79.01 Long term (current) use of anticoagulants; G47.33 Obstructive sleep apnea (adult) (pediatric); E78.5 Hyperlipidemia, unspecified; K21.9 Gastro-esophageal reflux disease without esophagitis; I10 Essential (primary) hypertension; Z85.46 Personal history of malignant neoplasm of prostate; K21.00 Gastro-esophageal reflux disease with esophagitis, without bleeding; K44.9 Diaphragmatic hernia without obstruction or gangrene; K29.50 Unspecified chronic gastritis without bleeding; Z79.899 Other long term (current) drug therapy
CPT/HCPCS: 00123; 36415; 78452; 80048; 80053; 93005; 93016; 93018; 99222; 99285; 71045; 83735; 84484; 85025; 85379; 93010; 93017; 99239; G0378; J2785

== ENCOUNTER → 2024-09-07 08:00 | Outpatient (BNVA) | payer MEDICARE, SELFPAY | PROVIDERS: PCP Nurse Practitioner Family; Referring Provider Nurse Practitioner Family; Visit Provider Internal Medicine Cardiovascular Disease ==

== ENCOUNTER 2024-11-01 15:39 | Emergency (ER) | payer MEDICARE, SELFPAY ==
[2024-11-01] VITALS (24 sets, daily range): BP systolic 142–177; BP diastolic 66–87; PULSE 60–80; RESP 12–20; TEMP 36.4; O2SAT 92–98
--- NOTE | 2024-11-01 15:30 | RT.EKG_ITS ---
APPROVED REPORT Exam: Resting ECG Reason for Exam: vomiting/cold sweats/cardiac hx Patient Location: E HR:68 bpm ECG Measurements Heart Rate 68 AXIS ND 236 P [id number] QRSd 111 QRS 43 QT 362 T -51 QTc 386 Conclusion Atrial-paced rhythm, rate 68 ND prolonged at 236ms, otherwise no interval abnormalities T wave inversion II, III, aVF, unchanged from priors No STEMI
[2024-11-01 16:17] LABS: Abs Immature Grans 0.04 10^3/uL (0.0-0.06); Absolute Basophil Count 0.04 10^3/uL (0.0-0.2); Absolute Eosinophil Count 0.12 10^3/uL (0.0-0.7); Absolute Lymphocyte Count 1.85 10^3/uL (1.2-3.4); Absolute Monocyte Count 0.49 10^3/uL (0.1-0.8); Absolute Neutrophil Count 5.52 10^3/uL (1.2-6.7); Basophils % 0.5 %; Eosinophils % 1.5 %; HCT 42.5 % (40.0-50.0); HGB 14.1 g/dL (13.5-17.5); Immature Grans % 0.5 %; MCH 29.8 pg (27.0-33.0); MCHC 33.2 % (32.0-36.0); MCV 90 fL (80-95); MPV 9.1 fL (8.0-11.0); Monocytes % 6.1 %; Neutrophils % 68.4 %; Platelet Count 236 10^3/uL (130-400); RBC 4.73 10^6/uL (4.36-5.78); RDW 12.6 % (11.8-14.1); WBC 8.06 10^3/uL (4.4-10.8)
[2024-11-01] MEDS: Normal Saline 1,000 ML 500 ML IV (16:24)
[2024-11-01] MEDS: Prochlorperazine 10 MG/2 ML VIAL IVP (16:24)
[2024-11-01] MEDS: ACETAMINOPHEN 500 MG/50 ML BAG 200 MG IVPB (16:25)
[2024-11-01 16:40] LABS: ALT 33 U/L (16-63); AST 15 U/L (15-37); Albumin 3.7 g/dL (3.4-5.0); Alkaline Phosphatase 69 U/L (46-116); Anion Gap 5.9 mmol/L (3-11); BUN 16 mg/dL (7-18); Bilirubin, Total 0.5 mg/dL (0.2-1.0); CO2 28.1 mmol/L (21.0-32.0); CREATININE 1.1 mg/dL (0.70-1.30); Calcium 10.4 mg/dL (8.5-10.1); Chloride 107 mmol/L (98-107); Estimated GFR 70.01 (mL/min/1.73m2); Glucose 141 mg/dL (74-106); Lipase 38 U/L (<78); Magnesium 1.9 mg/dL; Sodium 141 mmol/L (136-145); Total Protein 7.2 g/dL (6.4-8.2); Troponin I 6 ng/L (<or=76)
[2024-11-01 16:53] LABS: COVID-19 PCR Negative (Negative); Influenza A PCR Negative (Negative); Influenza B PCR Negative (Negative); RSV PCR Negative (Negative); Source Nasopharynx
[2024-11-01] MEDS: Normal Saline - Diluent 50 ML VIAL IJ (17:32)
[2024-11-01] MEDS: Omnipaque 350 MG/ML 100 ML BTL IJ (17:33)
--- NOTE | 2024-11-01 17:44 | DI.CT_ITS ---
Exam(s) CT HEAD WO EXAM: CT HEAD WO CLINICAL HISTORY: headache. TECHNIQUE: Imaging Protocol: Axial computed tomography images with coronal and sagittal reformatted images were created and reviewed COMPARISON: CT CT BRAIN NECK CTA from 09/04/2022 FINDINGS: Ventricles and Extra axial spaces: Normal in size and morphology for the patient's age. Hemorrhage: None. Cerebral parenchyma: No evidence of an acute territorial infarct. Midline shift: None. Brainstem/Cerebellum: Normal. Calvarium: Normal. Visualized Paranasal sinuses/Mastoids: Clear. Soft Tissues: Unremarkable. IMPRESSION: No acute intracranial process. RADIATION DOSE DELIVERED: 801.73mGy.cm Total DLP DATA REPOSITORY: All CT scans at this facility are submitted to the National Radiology Data Registry (NRDR) Dose Index Registry (DIR) with the [employer] (ACR). RADIATION OPTIMIZATION: All CT scans at this facility use at least one of these dose optimization te chniques: automated exposure control; mA and/or kV adjustment per patient size (includes targeted exa ms where dose is matched to clinical indication); or iterative reconstruction.
--- NOTE | 2024-11-01 17:47 | DI.CT_ITS ---
Exam(s) CT ABDOMEN PELVIS W EXAM: CT ABDOMEN PELVIS W CLINICAL HISTORY: abd pain, epigastric TECHNIQUE: Imaging Protocol: Axial computed tomography images with coronal and sagittal reformatted images were created and reviewed. CONTRAST MATERIAL: Intravenous: Omnipaque 350 Contrast volume:100 mL Oral: No COMPARISON: CT CT ABDOMEN PELVIS W from 09/03/2022 FINDINGS: The examination is limited due to patient motion artifact. ABDOMEN: Lung Bases: Coronary artery calcifications are present. Atelectatic changes are seen in the lung bas es. Liver: Normal density. No measurable mass. Portal, Superior Mesenteric, and Splenic Veins: Unremarkable. Gallbladder and Biliary Tract: Status post cholecystectomy. No biliary ductal dilatation. Pancreas: Normal density, no abnormal calcifications or inflammatory process. Spleen: Normal. Adrenals: No masses seen. Kidneys: Normal size, contour and axis. No radiodense stones or obstructive uropathy. No masses seen. Abdominal Aorta: Abdominal portion non-dilated. Atherosclerotic calcification is present. Bowel: There is diverticulosis seen in the colon but no evidence of acute diverticulitis. No evidenc e of bowel wall thickening or obstruction is present. There is no evidence of appendicitis. Note is made of a duodenal diverticulum adjacent to the pancreatic head. Peritoneal Cavity: No ascites, collection or mesenteric inflammatory response. No free air. Lymph Nodes: Within normal limits. Bones: Within normal limits for the patient's age. Soft Tissues: There is a small fat containing right inguinal hernia. PELVIS: Bladder: Symmetric distention, no gross wall thickening. Reproductive Organs: The prostate gland is not visualized. This may be due to decreased size or rese ction. Lymph Nodes: Within normal limits. Bones: Within normal limits for the patient's age. IMPRESSION: No acute abdominal or pelvic process. RADIATION DOSE DELIVERED: 502.05mGy.cm Total DLP DATA REPOSITORY: All CT scans at this facility are submitted to the National Radiology Data Registry (NRDR) Dose Index Registry (DIR) with the [employer] (ACR). RADIATION OPTIMIZATION: All CT scans at this facility use at least one of these dose optimization te chniques: automated exposure control; mA and/or kV adjustment per patient size (includes targeted exa ms where dose is matched to clinical indication); or iterative reconstruction.
[2024-11-01] MEDS: Prochlorperazine 10 MG TAB PO (19:35)
[2024-11-01 19:41] LABS: Bilirubin Negative (Negative); Blood Negative (Negative); Clarity Clear (Clear); Glucose Negative (Negative); Ketones Negative (Negative); Leukocyte Esterase Negative (Negative); Nitrite Negative (Negative); Specific Gravity 1.015 (1.005-1.025); Urobilinogen 0.2 mg/dL (Up to 0.2)
--- NOTE | 2024-11-01 22:13 | W.ED.GENAD ---
Discharge Plan Disposition Patient Disposition: Home Condition: Stable Discharge Details Clinical Impression: Nausea & vomiting, Abdominal pain Primary Care Provider: Jacquelyn Reyes ED Provider: Cathie Garcia Home Meds and New Rx's Prescriptions: New prochlorperazine maleate [Compazine] 10 mg tablet 10 mg PO Q6H PRNQty: 10 0RF Continued cholecalciferol (vitamin D3) [Vitamin D3] 125 mcg (5,000 unit) tablet 125 mcg PO DAILY ibuprofen 800 mg tablet 800 mg PO PRN Qty: 60 1RF Rx Instructions: Take one daily if needed. Do not exceed 1 tablet daily. sucralfate 1 gram tablet 1 g PO AC & HS PRN (Reason: heartburn) Qty: 80 2RF famotidine 20 mg tablet 20 mg PO QHS PRN (Reason: heartburn) Qty: 90 3RF lansoprazole 30 mg capsule,delayed release(DR/EC) 30 mg PO DAILY Qty: 90 3RF nitroglycerin 0.4 mg tablet, sublingual 0.4 mg Sublingual .COMPLEX MDD 3 tab Qty: 50 2RF Rx Instructions: 0.4 mg Sublingual x 3 prn chest pain. If no relief go to ED ; atorvastatin 80 mg tablet 80 mg PO DAILY Qty: 90 3RF ezetimibe [Zetia] 10 mg tablet 10 mg PO DAILY Qty: 90 3RF apixaban 5 mg tablet 5 mg PO BID Qty: 10 0RF amlodipine 10 mg tablet 10 mg PO DAILY Qty: 90 3RF Rx Instructions: Take 1 tablet daily isosorbide mononitrate 30 mg tablet extended release 24 hr 30 mg PO DAILY Qty: 90 3RF losartan 100 mg tablet 100 mg PO DAILY Qty: 90 3RF clopidogrel 75 mg tablet 75 mg PO DAILY Rx Instructions: 1 tab daily for 6 months, till March 2025 aspirin 81 MG tablet,chewable 81 mg PO DAILY Patient Comments: States he takes two. Discharge Instructions Instructions: Abdominal Pain, Adult ED, Nausea and Vomiting, Adult ED Additional Instructions: Take Compazine as needed for nausea and vomiting regular fluids, stay away from solid food intake feeling symptomatically improved Tylenol as needed for discomfort Recheck tomorrow with primary care physician Incorporate bland diet such as bananas, rice, applesauce, toast as tolerated Referrals: Jacquelyn Reyes, VANESSA [Primary Care Provider] - 1 day HPI General Date/Time Provider Initiated Documentation: 11/01/24 15:42. HPI Narrative: The patient is a 73-year-old male with a recent cardiac catheterization and stent placement in his right coronary artery, history of extensive coronary artery disease, recently started on clopidogrel 6 weeks ago, who presents with lightheadedness and headache on Friday which resolved followed by nausea and abdominal pain which has been persistent since that time including today, which is why he presents. He reports that his headache has since resolved. He does not experience any chest pain or shortness of breath. He does not have any known sick contacts or additional new medications. He also does not have fever, chills, or a history of similar symptoms in the past. He does not have blood in stool. Related Data Home Medications ?Medication ?Instructions ?Recorded ?Confirmed aspirin 81 mg chewable tablet 81 mg PO DAILY 06/21/13 11/01/24 cholecalciferol (vitamin D3) 125 125 mcg PO DAILY 12/30/19 11/01/24 mcg (5,000 unit) tablet (Vitamin D3) nitroglycerin 0.4 mg sublingual 0.4 mg sublingual .COMPLEX #50 06/20/20 11/01/24 tablet tab-caps ibuprofen 800 mg tablet 800 mg PO PRN pain #60 tabs 01/13/23 11/01/24 famotidine 20 mg tablet 20 mg PO QHS PRN heartburn #90 tabs 09/26/23 11/01/24 sucralfate 1 gram tablet 1 g PO AC & HS PRN heartburn #80 09/26/23 11/01/24 tabs lansoprazole 30 mg capsule,delayed 30 mg PO DAILY #90 caps 05/27/24 11/01/24 release atorvastatin 80 mg tablet 80 mg PO DAILY #90 tabs 08/03/24 11/01/24 ezetimibe 10 mg tablet (Zetia) 10 mg PO DAILY #90 tabs 08/03/24 11/01/24 amlodipine 10 mg tablet 10 mg PO DAILY #90 tabs 09/02/24 11/01/24 apixaban 5 mg tablet 5 mg PO BID #10 tabs 09/02/24 11/01/24 isosorbide mononitrate 30 mg 30 mg PO DAILY #90 tabs 09/02/24 11/01/24 tablet,extended release 24 hr losartan 100 mg tablet 100 mg PO DAILY #90 tabs 09/02/24 11/01/24 clopidogrel 75 mg tablet 75 mg PO DAILY 10/25/24 11/01/24 prochlorperazine maleate 10 mg 10 mg PO Q6H PRN #10 tabs 11/01/24 tablet (Compazine) Previous Rx's ?Medication ?Instructions ?Recorded nitroglycerin 0.4 mg sublingual 0.4 mg sublingual .COMPLEX #50 06/20/20 tablet tab-caps ibuprofen 800 mg tablet 800 mg PO PRN pain #60 tabs 01/13/23 famotidine 20 mg tablet 20 mg PO QHS PRN heartburn #90 tabs 09/26/23 sucralfate 1 gram tablet 1 g PO AC & HS PRN heartburn #80 09/26/23 tabs lansoprazole 30 mg capsule,delayed 30 mg PO DAILY #90 caps 05/27/24 release atorvastatin 80 mg tablet 80 mg PO DAILY #90 tabs 08/03/24 ezetimibe 10 mg tablet (Zetia) 10 mg PO DAILY #90 tabs 08/03/24 amlodipine 10 mg tablet 10 mg PO DAILY #90 tabs 09/02/24 apixaban 5 mg tablet 5 mg PO BID #10 tabs 09/02/24 isosorbide mononitrate 30 mg 30 mg PO DAILY #90 tabs 09/02/24 tablet,extended release 24 hr losartan 100 mg tablet 100 mg PO DAILY #90 tabs 09/02/24 prochlorperazine maleate 10 mg 10 mg PO Q6H PRN #10 tabs 11/01/24 tablet (Compazine) General Stated Complaint: Dizzy/Sync [place]: 3 Exam Narrative Exam Narrative: General Appearance: Chronically ill appearance. Vital signs: Within normal limits. HEENT: Within normal limits. Respiratory: Lungs clear to auscultation. Cardiovascular: No heart murmur. Gastrointestinal: Epigastric tenderness. No abdominal bruit or pulsatile masses. Extremities: Distal pulses intact. Skin: Warm and dry, no rash. Neurological: Normal. Course Vital Signs Vital signs: Vital Signs Temperature 36.4 C 11/01/24 15:45 Pulse 60 11/01/24 15:45 Respiratory Rate 20 11/01/24 15:45 Blood Pressure 177/84 H 11/01/24 15:45 Pulse Oximetry 95 11/01/24 15:45 Temperature 36.4 C 11/01/24 15:45 Pulse 60 11/01/24 19:10 Pulse 60 11/01/24 19:10 Respiratory Rate 15 11/01/24 19:10 Respiratory Effort Normal 11/01/24 15:51 Blood Pressure 155/80 H 11/01/24 17:00 Blood Pressure Mean 103 11/01/24 17:00 Blood Pressure Position Sitting 11/01/24 15:45 Pulse Oximetry 95 11/01/24 19:10 Oxygen Delivery Method Room Air 11/01/24 15:45 Oxygen Flow Rate 0 11/01/24 15:45 Lab/Test Results Lab/Test Results: Laboratory Tests Range/Units 11/01/24 11/01/24 11/01/24 16:06 16:09 19:23 WBC (4.4-10.8) 10^3/uL 8.06 RBC (4.36-5.78) 10^6/uL 4.73 Hgb (13.5-17.5) g/dL 14.1 Hct (40.0-50.0) % 42.5 MCV (80-95) fL 90 MCH (27.0-33.0) pg 29.8 MCHC (32.0-36.0) % 33.2 RDW (11.8-14.1) % 12.6 Plt Count (130-400) 10^3/uL 236 MPV (8.0-11.0) fL 9.1 Immature Gran % % 0.5 Neutrophils % % 68.4 Lymphocytes % % 23.0 Monocytes % % 6.1 Eosinophils % % 1.5 Basophils % % 0.5 Nucleated RBC % (0.0-0.3) % 0.0 Absolute Neutrophils (1.2-6.7) 10^3/uL 5.52 Absolute Lymphocytes (1.2-3.4) 10^3/uL 1.85 Absolute Monocytes (0.1-0.8) 10^3/uL 0.49 Absolute Eosinophils (0.0-0.7) 10^3/uL 0.12 Absolute Basophils (0.0-0.2) 10^3/uL 0.04 Sodium (136-145) mmol/L 141 Potassium (3.5-5.1) mmol/L 4.0 Chloride (98-107) mmol/L 107 Carbon Dioxide (21.0-32.0) mmol/L 28.1 Anion Gap (3-11) mmol/L 5.9 BUN (7-18) mg/dL 16 Creatinine (0.70-1.30) mg/dL 1.1 Est GFR (CKD-EPI 2020) (mL/min/1.73m2) 70.01 Glucose (74-106) mg/dL 141 H Calcium (8.5-10.1) mg/dL 10.4 H Magnesium mg/dL 1.9 Total Bilirubin (0.2-1.0) mg/dL 0.5 AST (15-37) U/L 15 ALT (16-63) U/L 33 Alkaline Phosphatase (46-116) U/L 69 Troponin I (<or=76) ng/L 6 Total Protein (6.4-8.2) g/dL 7.2 Albumin (3.4-5.0) g/dL 3.7 Lipase (<78) U/L 38 Urine Color (Yellow) Yellow Urine Clarity (Clear) Clear Urine pH (5-8) 7.0 Ur Specific [place] (1.005-1.025) 1.015 Urine Protein (Neg-Trace) mg/dL Negative Urine Ketones (Negative) mg/dL Negative Urine Blood (Negative) Negative Urine Nitrite (Negative) Negative Urine Bilirubin (Negative) Negative Urine Urobilinogen (Up to 0.2) mg/dL 0.2 Ur Leukocyte Esterase (Negative) Negative Urine Glucose (Negative) mg/dL Negative COVID-19 Source Nasopharynx SARS-CoV-2 (PCR) (Negative) Negative Influenza Type A (PCR) (Negative) Negative Influenza Type B (PCR) (Negative) Negative RSV (PCR) (Negative) Negative Medical Decision Making Labs: WBC within normal limits, CBC reassuring, calcium 10.4, glucose 141, troponin 6. Imaging: CT abdomen/pelvis and CT head show no acute pathology. EKG: Nonischemic. Initial Assessment: 73-year-old male with recent cardiac catheterization and stent placement in his right coronary artery, history of extensive coronary artery disease, presents with persistent nausea and abdominal pain since Friday. Headache resolved. Denies chest pain, shortness of breath, fever, chills, blood in stool, and sick contacts. No new medications. Physical exam shows tenderness in the epigastrium, no abdominal burry or pulsatile masses, distal pulses intact, lungs clear, no murmur. ED Course: - Ordered CT abdomen and pelvis, CT head due to clopidogrel and Eliquis. - Administered IV fluids, Compazine, and IV Tylenol. - Diagnostic blood work: WBC within normal limits, CBC reassuring, calcium 10.4, glucose 141, troponin 6, COVID pending. - EKG nonischemic. - CT abdomen and pelvis: No acute pathology (read by radiology, reviewed by me). - CT head: No acute abnormality (read by radiology). - Patient symptomatically improved, tolerating oral intake. Final Assessment: Patient's nausea and abdominal pain improved with IV fluids, Compazine, and IV Tylenol. CT abdomen and pelvis and CT head show no acute pathology. Diagnostic labs are reassuring. Clinical Impression: - Nausea and abdominal pain - Headache (resolved) Disposition: - Discharge home - Follow-Up: Close outpatient follow-up MDM Components Evaluation: - Number of Differential Diagnoses or Management Options: Nausea and abdominal pain, headache - Amount and Complexity of Data Reviewed: CT abdomen and pelvis, CT head, diagnostic blood work, EKG - Risk of Complication and Morbidity or Mortality: Moderate due to recent cardiac catheterization and stent placement, use of clopidogrel and Eliquis Quality:SDOH Health Related Social Needs: Health related social needs material hardship(utilities) (Z59.12) ON LICENSE OF [facility] All Active Problems (Updated 11/01/24 @ 19:21 by TAHMINA Foster) Abdominal pain (Acute) Nausea & vomiting (Acute) Hearing loss (Acute) Skin lesion of face (Acute) Coronary artery disease (Chronic) CABG x 2 1996, IRAJ to RCA 09/2024 Sick sinus syndrome (Chronic ~07/2022) S/p Dual chamber pacemaker Pacemaker (Chronic ~07/2022) Atrial fibrillation (Chronic) S/p cardioversion 03/07/21 On eliquis Chronic anticoagulation (Chronic) Obstructive sleep apnea (Chronic) PSG 08/2020, on CPAP DJD (degenerative joint disease) of cervical spine (Chronic) History of prostate cancer (Chronic ~2015) Brian score 6, s/p radical prostatectomy 2016 Essential hypertension (Chronic) Hyperlipidemia (Chronic) Bilateral carotid artery disease (Chronic) Gastroesophageal reflux disease with esophagitis (Chronic) Gastritis (Chronic) Lumbar back pain with radiculopathy affecting lower extremity (Chronic) Subclinical hypothyroidism (Chronic) Hiatal hernia (Chronic) Primary osteoarthritis of left shoulder (Chronic) BPPV (benign paroxysmal positional vertigo) (Chronic) Hearing loss in left ear (Chronic) Medical History (Updated 11/01/24 @ 19:21 by TAHMINA Foster) Tubular adenoma of colon On 2023 colonoscopy Adenocarcinoma of prostate (~2015) Brian score 6, s/p radical prostatectomy 2017 Surgical History S/P radical cystoprostatectomy (08/23/16) With bilateral total pelvic lymphadenectomy S/P colonoscopy (01/16/15) H/O umbilical hernia repair S/P cholecystectomy History of esophagogastroduodenoscopy (EGD) (04/04/14) Repeat 11/22/22 S/P CABG x 2 (04/14/97) ROSADO to LAD, JANN to RCA Family History (Updated 09/29/24 @ 12:43 by Jacquelyn Reyes NP) Mother , age 73 Heart disease Father , age 68 Heart disease Hyperlipidemia Hypertension Sister Depression Brother , age 80 Alcohol abuse Cancer of kidney Heart disease Hyperlipidemia Hypertension Brother , age 73 Depression Brother , 78 Heart disease Hyperlipidemia Hypertension Stroke Atrial fibrillation COPD (chronic obstructive pulmonary disease) Daughter Depression Maternal Grandfather No problems noted. Maternal Grandmother No problems noted. Paternal Grandfather No problems noted. Paternal Grandmother No problems noted. Brother COPD (chronic obstructive pulmonary disease) Social History Smoking/Tobacco Use Status: Never Smoking risk assessment performed?: Yes Alcohol Intake: current Alcohol Intake frequency: a few times a week Alcohol type: beer Drug use: Never Substance use type: does not use Caregiver/Support person: No Household members: spouse and children Housing: house Communication Needs: None Do you need help understanding health information?: Never Pets and animals: Yes Pets and animals: dog(s) Sexually active: No Do you think of yourself as: straight/heterosexual Current gender identity: male What is your relationship status?: How often do you talk on the phone with friends or family?: decline to answer How often do you get together with friends or relatives?: decline to answer How often do you attend restoration or quaker services?: decline to answer Do you belong to any clubs or organized social groups?: decline to answer Panel score (0-1 are the most socially isolated patients): 1 What type of physical activity do you participate in: walking Duration: 45-60 minutes/day Frequency: daily [place]/Moravian: None Special sy[place] needs: No Seatbelt use: always Drive intox 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 route delivery driver: No Do you feel safe at home: Yes Do you feel safe in your relationship?: Yes PAWSS Have you Been Recently Intoxicated or Drunk Within the Last 30 days?: No Have you Ever Experienced Previous Episodes of Alcohol Withdrawal?: No Have you ever Experienced Withdrawal Seizures?: No Have you ever Experienced Delirium Tremens(DT)s?: No Have you ever undergone Alcohol Rehabilitation Treatment (i.e, inpt ot outpatient treatment programs)?: No Have you ever Experienced Blackouts?: No Have you ever Combined Alcohol with other Downers within the last 90 days?: No Have you ever Combined Alcohol with any other Substance of Abuse during the last 90 days?: No Positive Blood Alcohol level on Presentation? [PCS.BAL]: No Evidence of Increased Autonomic Activity (i.e. HR>120, tremor, sweating, agitation, nausea)?: No Result: 0
== END 2024-11-01 19:51 | disposition home or self-care (01) ==
PROVIDERS: Emergency Provider Physician Assistant; PCP Nurse Practitioner Family
DX: R10.30 Lower abdominal pain, unspecified (principal); R11.2 Nausea with vomiting, unspecified; I10 Essential (primary) hypertension; Z79.01 Long term (current) use of anticoagulants; Z59.12 Inadequate housing utilities
CPT/HCPCS: 80053; 83690; 87637; 93005; 96361; 96365; 96375; 99285; 70450; 74177; 81003; 83735; 84484; 85025; 93010; 99284; J0131; J0780; J3490

== ENCOUNTER 2024-11-12 00:50 | Outpatient (CLI) | payer MEDICARE, SELFPAY ==
[2024-11-12 08:05] LABS: Hemoglobin A1C 6.1 % (<5.7)
[2024-11-12 08:32] LABS: Calculated LDL 79 mg/dL (<100); Cholesterol 151 mg/dL (<200); HDL Cholesterol 42 mg/dL (>or=40); TSH (W/Ref FT4) 4.85 uIU/mL (0.36-3.74); Triglyceride 153 mg/dL (<150)
[2024-11-12 08:50] LABS: FREE T4 0.77 ng/dL (0.76-1.46)
[2024-11-12 17:57] LABS: PSA, Screening <0.1 ng/mL (<=6.5)
== END 2024-11-12 00:51 | disposition home or self-care (01) ==
PROVIDERS: PCP Nurse Practitioner Family; Visit Provider Nurse Practitioner Family
DX: E03.8 Other specified hypothyroidism (principal); I25.10 Atherosclerotic heart disease of native coronary artery without angina pectoris; R73.01 Impaired fasting glucose; Z12.5 Encounter for screening for malignant neoplasm of prostate
CPT/HCPCS: 36415; 80061; 84153; 83036; 84439; 84443

== ENCOUNTER 2024-11-17 12:26 | Outpatient (REF) | payer MEDICARE, SELFPAY ==
--- NOTE | 2024-11-17 07:33 | SKI_PTH ---
PATIENT: Saúl Virk LOC: [facility] U#:[id number] AGE/SX: 74/M ROOM: RE11/17/[address]: Jim Luevano MD : [id number] BED: DIS: 11/17/2024 SPEC #: [id number] RECD: 11/17/24 12:37 STATUS: BEAU REQ #: [id number] JULIO: 11/17/24 07:[address]: Jim Luevano DEPT: Surgical Specimen RECD BY: Cathie Siddiqui ENTERED: 11/17/24 12:38 SP TYPE: [facility] DR: CECILIO Donovan Tissues: 1 - SKIN BIOPSY(SHAVE/PUNCH) Procedures: SKIN LEVEL 4 Comments: [id number]
== END 2024-11-17 12:27 | disposition home or self-care (01) ==
LOC: LBN 12:26
PROVIDERS: PCP Nurse Practitioner Family; Visit Provider Otolaryngology
DX: D23.39 Other benign neoplasm of skin of other parts of face (principal)
CPT/HCPCS: 88305